=== PATIENT | male | born 1965 | race Two or more races ===

== ENCOUNTER 2017-09-25 16:18 | Observation (INO) | payer BC ==
--- NOTE | 2017-09-25 17:34 | RAD ---
INDICATION: Chest pain. COMPARISON: Comparison is made with a prior chest x-ray study from May 11, 2016. TECHNIQUE: A portable view of the chest was obtained. FINDINGS: Cardiac and mediastinal contours appear to be within normal limits. The lungs are clear. No pleural effusion is seen. IMPRESSION: NO EVIDENCE FOR ACUTE DISEASE.
[2017-09-25 17:42] LABS: EGFR Non-African American 84.9 (>60)
[2017-09-25 17:44] LABS: ABS Basophils 0 10^3/ul (0-0.2); ABS Eosinophils 0.1 10^3/ul (0-0.6); ABS Lymphocytes 0.9 10^3/ul (1.0-4.8); ABS Monocytes 0.5 10^3/ul (0-0.8); ABS Neutrophils 5.8 10^3/ul (1.5-7.7); ABS Nucleated RBC 0 10^3/ul; Eosinophil % 1.2 % (0-6); Hematocrit 43 % (42-52); Hemoglobin 14.3 g/dl (14.0-18.0); Lymphocyte % 12.1 % (25-47); Mean Corpuscular HGB Conc 34 g/dl (31-36); Mean Corpuscular Hemoglobin 29 pg (27-31); Mean Corpuscular Volume 88 fL (80-94); Mean Platelet Volume 9.2 um3 (7.4-10.4); Nucleated Red Blood Cells % 0; Platelet Count 233 10^3/ul (150-450); Red Blood Count 4.88 10^6/ul (4.0-5.4); Red Cell Distribution Width 14 % (10.5-15); White Blood Count 7.2 10^3/ul (3.5-10.8)
[2017-09-25] MEDS ORDERED: Morphine INJ* 2 MG/ML 1 ML CARPUJECT IV PRN (18:53)
[2017-09-25] MEDS ORDERED: Nitroglycerin TAB 0.4 MG* 0.4 MG TAB SL ONE (18:53)
[2017-09-25] MEDS ORDERED: Acetaminophen TAB* 325 MG PO PRN (18:54)
--- NOTE | 2017-09-25 18:57 | ED ---
Ml Vega Edward, scribed for Lio Macedo MD on 09/25/17 at 1626 . HPI Chest Pain - HPI Summary HPI Summary: 52 y/o male BIBA c/o 1x episode of L-sided CP today at around 15:00. The pt was driving when it started. Pt states his chest feels "full" currently; pain rated 3/10 currently. The pain was in the L upper chest. Associated sx: SOB, shoulder pain, diaphoresis, hands cold, nausea. Took an ASA and called 911, sx mostly resolved when EMS arrived. Given NTG, which alleviated sx. Pt has had intermittent stabbing CP for the past 4 months, which resolves spontaneously or with ASA. PMHx HTN and sleep apnea (CPAP machine). Pt has a stress test scheduled for later this week. Mother recently of a CO at 73. - History of Current Complaint Time Seen by Provider: 09/25/17 16:25 Hx Obtained From: Patient Onset/Duration: Started Hours Ago, Resolved Character: Other: - "chest feels full" Aggravating Factor(s): Nothing Alleviating Factor(s): Other: - ASA and NTG Associated Signs and Symptoms: Positive: Chest Pain, Shortness of Breath, Diaphoresis, Nausea, Other: - shoulder pain, hands cold - Allergy/Home Medications Allergies/Adverse Reactions: Allergies Allergy/AdvReac Type Severity Reaction Status Date / Time lisinopril Allergy Coughing Verified 09/25/17 16:58 SEASONAL ENVIRONMENTAL Allergy RUNNY Uncoded 09/25/17 16:37 ALLERGIES NOSE, WATERY EYES, CONGESTION Home Medications: Home Medications Ascorbic Acid TAB* [Vitamin C TAB*] 500 mg PO DAILY 09/25/17 [History Confirmed 09/25/17] PMH/Surg Hx/FS Hx/Imm Hx Previously Healthy: No Cardiovascular History: Reports: Hx Hypertension - CONTROL WITH MEDS Respiratory History: Reports: Hx Sleep Apnea Sensory History: Denies: Hx Contacts or Glasses, Hx Hearing Aid Opthamlomology History: Denies: Hx Contacts or Glasses - Surgical History Surgery Procedure, Year, and Place: 2002 REMOVAL OF RIGHT FLANK MASS, [facility] Hx Anesthesia Reactions: No - Family History Known Family History: Positive: Diabetes Negative: Cardiac Disease, Hypertension - Social History Alcohol Use: Occasionally Hx Substance Use: No Substance Use Type: Reports: None Hx Tobacco Use: No Smoking Status (MU): Never Smoked Tobacco Review of Systems Positive: Skin Diaphoresis, Other - hands cold Eyes: Negative ENT: Negative Positive: Chest Pain Positive: Shortness Of Breath Positive: Nausea Genitourinary: Negative Positive: Arthralgia - shoulder pain Skin: Negative Neurological: Negative Psychological: Normal All Other Systems Reviewed And Are Negative: Yes Physical Exam - Summary Physical Exam Summary: Appearance: The patient is morbidly obese in no acute distress and in no acute pain. Skin: The skin is warm and dry and skin color reflects adequate perfusion. HEENT: The head is normocephalic and atraumatic. The pupils are equal and reactive. The conjunctivae are clear and without drainage. Nares are patent and without drainage. Mouth reveals moist mucous membranes and the throat is without erythema and exudate. The external ears are intact. The ear canals are patent and without drainage. The tympanic membranes are intact. Neck: the neck is supple with full range of motion and non-tender. There are no carotid bruits. There is no neck vein distension. Respiratory: Chest is non-tender. Lungs are clear to auscultation and breath sounds are symmetrical and equal. Cardiovascular: Heart is regular rate and rhythm. There is no murmur or rub auscultated. There is no peripheral edema and pulses are symmetrical and equal. Abdomen: The abdomen is soft and non-tender. There are normal bowel sounds heard in all four quadrants and there is no organomegaly palpated. Musculoskeletal: There is no back tenderness noted. Extremities are non-tender with full range of motion. There is good capillary refill. There is no peripheral edema or calf tenderness elicited. Neurological: Patient is alert and oriented to person, place and time. The patient has symmetrical motor strength in all four extremities. Cranial nerves are grossly intact. Deep tendon reflexes are symmetrical and equal in all four extremities. Psychiatric: The patient has an appropriate affect and does not exhibit any anxiety or depression. Triage Information Reviewed: Yes Vital Signs On Initial Exam: Initial Vitals Temp Pulse Resp BP Pulse Ox 99.0 F 93 20 160/80 97 09/25/17 16:25 09/25/17 16:25 09/25/17 16:25 09/25/17 16:25 09/25/17 16:25 Vital Signs Reviewed: Yes Diagnostics - Vital Signs Vital Signs Temp Pulse Resp BP Pulse Ox 09/25/17 18:30 80 19 124/76 94 09/25/17 18:00 82 20 137/75 95 09/25/17 17:30 85 24 145/76 94 09/25/17 17:00 87 19 141/79 95 09/25/17 16:58 95 09/25/17 16:30 94 18 158/80 96 09/25/17 16:29 93 19 96 09/25/17 16:27 160/80 09/25/17 16:25 99.0 F 93 20 160/80 97 - Laboratory Lab Results: Lab Results 09/25/17 09/25/17 09/25/17 Range/Units 17:13 17:13 17:13 WBC 7.2 (3.5-10.8) 10^3/ul RBC 4.88 (4.0-5.4) 10^6/ul Hgb 14.3 (14.0-18.0) g/dl Hct 43 (42-52) % MCV 88 (80-94) fL MCH 29 (27-31) pg MCHC 34 (31-36) g/dl RDW 14 (10.5-15) % Plt Count 233 (150-450) 10^3/ul MPV 9.2 (7.4-10.4) um3 Neut % (Auto) 79.8 (38-83) % Lymph % (Auto) 12.1 L (25-47) % Desha % (Auto) 6.5 (0-7) % Eos % (Auto) 1.2 (0-6) % Baso % (Auto) 0.4 (0-2) % Absolute Neuts (auto) 5.8 (1.5-7.7) 10^3/ul Absolute Lymphs (auto) 0.9 L (1.0-4.8) 10^3/ul Absolute Monos (auto) 0.5 (0-0.8) 10^3/ul Absolute Eos (auto) 0.1 (0-0.6) 10^3/ul Absolute Basos (auto) 0 (0-0.2) 10^3/ul Absolute Nucleated RBC 0 10^3/ul Nucleated RBC % 0 Sodium 132 L (139-145) mmol/L Potassium TNP Chloride 100 L (101-111) mmol/L Carbon Dioxide 25 (22-32) mmol/L Anion Gap 7 (2-11) mmol/L BUN 18 (6-24) mg/dL Creatinine 0.94 (0.67-1.17) mg/dL Est GFR ( Amer) 109.2 (>60) Est GFR (Non-Af Amer) 84.9 (>60) BUN/Creatinine Ratio 19.1 (8-20) Glucose 117 H (70-100) mg/dL Lactic Acid 1.0 (0.5-2.0) mmol/L Calcium 9.7 (8.6-10.3) mg/dL Total Bilirubin 0.60 (0.2-1.0) mg/dL AST TNP ALT 50 (7-52) U/L Alkaline Phosphatase 62 (34-104) U/L Troponin I 0.02 (<0.04) ng/mL Total Protein 8.7 (6.4-8.9) g/dL Albumin 4.9 (3.2-5.2) g/dL Globulin 3.8 (2-4) g/dL Albumin/Globulin Ratio 1.3 (1-3) 04/16/18 Range/Units 18:13 WBC (3.5-10.8) 10^3/ul RBC (4.0-5.4) 10^6/ul Hgb (14.0-18.0) g/dl Hct (42-52) % MCV (80-94) fL MCH (27-31) pg MCHC (31-36) g/dl RDW (10.5-15) % Plt Count (150-450) 10^3/ul MPV (7.4-10.4) um3 Neut % (Auto) (38-83) % Lymph % (Auto) (25-47) % Desha % (Auto) (0-7) % Eos % (Auto) (0-6) % Baso % (Auto) (0-2) % Absolute Neuts (auto) (1.5-7.7) 10^3/ul Absolute Lymphs (auto) (1.0-4.8) 10^3/ul Absolute Monos (auto) (0-0.8) 10^3/ul Absolute Eos (auto) (0-0.6) 10^3/ul Absolute Basos (auto) (0-0.2) 10^3/ul Absolute Nucleated RBC 10^3/ul Nucleated RBC % Sodium (139-145) mmol/L Potassium 4.0 Chloride (101-111) mmol/L Carbon Dioxide (22-32) mmol/L Anion Gap (2-11) mmol/L BUN (6-24) mg/dL Creatinine (0.67-1.17) mg/dL Est GFR ( Amer) (>60) Est GFR (Non-Af Amer) (>60) BUN/Creatinine Ratio (8-20) Glucose (70-100) mg/dL Lactic Acid (0.5-2.0) mmol/L Calcium (8.6-10.3) mg/dL Total Bilirubin (0.2-1.0) mg/dL AST 38 ALT (7-52) U/L Alkaline Phosphatase (34-104) U/L Troponin I (<0.04) ng/mL Total Protein (6.4-8.9) g/dL Albumin (3.2-5.2) g/dL Globulin (2-4) g/dL Albumin/Globulin Ratio (1-3) Result Diagrams: 09/25/17 17:13 09/25/17 18:13 Lab Statement: Any lab studies that have been ordered have been reviewed, and results considered in the medical decision making process. - Radiology CXR Xray Interpretation: No Acute Changes - No evidence for acute disease Radiology Interpretation Completed By: Radiologist - EKG 1 EKG Interpretation: NSR @ 85 BPM. Nonspecific inferior changes Chest Pain Course/Dx - Course Course Of Treatment: Mr. Duckworth presented with an episode of chest discomfort. He has been having them occasionally for a couple weeks and is scheduled for an outpatient stress test this Monday. Today's episode was accompanied by nausea and diaphoresis which was new. His initial W/U is negative, however, this sounds like unstable angina and I have asked the hospitalist service to evaluate him. - Diagnoses Provider Diagnoses: Unstable angina - Provider Notifications Discussed Care Of Patient With: Charis Nguyen Time Discussed With Above Provider: 18:12 Instructed by Provider To: Admit As Inpatient Discharge - Sign-Out/Discharge Documenting (check all that apply): Discharge - Discharge Plan Condition: Stable Disposition: ADMITTED TO [facility] Referrals: Marcos Doan MD [Primary Care Provider] - - Billing Disposition and Condition Condition: STABLE [place] [place] The documentation as recorded by the Ml bernstein Edward accurately reflects the service I personally performed and the decisions made by me, Lio Macedo MD.
[2017-09-25] MEDS: Heparin VIAL(*) 5000 UNITS/ML VIAL (FIVE THOUSAND) SUBCUT SCH (22:23)
--- NOTE | 2017-09-25 22:57 | HP ---
CC: Dr. Doan* ADMISSION HISTORY AND PHYSICAL: DATE OF ADMISSION: 09/25/17 ATTENDING PHYSICIAN: Charis Nguyen MD * (DICTATED BY JARETH KHAN) PRIMARY CARE PROVIDER: Marcos Doan MD CHIEF COMPLAINT: Chest pain. HISTORY OF PRESENT ILLNESS: Mr. Duckworth is a pleasant 52-year-old gentleman with past medical history significant for obesity and hypertension, who was brought to the emergency room this afternoon via ambulance after he experienced a sudden onset of a substernal chest pain. The patient notes that he was driving back home this afternoon when he started to experience generalized chest pain that got more localized to the middle and eventually shifted to the left side, radiating to his shoulder and jaw. He reports feeling some dizziness and diaphoresis but denied any loss of consciousness, double vision, nausea or vomiting. He had experienced similar chest pain episodes most recently in March 2016 for which he had an EKG done that revealed no significant changes. The patient told me that he was seen by Dr. Doan about 3 weeks ago and he is scheduled for a cardiac stress test this Monday for similar on and off chest discomfort. The patient notes that his chest pain lasted approximately 30 minutes and was relieved when he was given a nitroglycerin by the EMS staff. Upon arriving to [facility] Emergency Room , the patient was pain free and he denied any recurrent chest pain since then. During his ED visit, patient had cardiac workup that revealed normal troponin and EKG that showed no changes compared to previous one in March 2016. Given his obesity, history of hypertension and the frequency of his chest discomfort, we were asked to see the patient to consider observation admit to telemetry in anticipation for troponin series draw as well as a stress nuclear cardiac test in the a.m. to rule out acute coronary syndrome. PAST MEDICAL HISTORY: Remarkable for hypertension for which he has been on Norvasc for a period of time. He denies any history of lung, liver, heart or kidney disease. PAST SURGICAL HISTORY: Significant for lipoma excision from his right flank in the remote past. CURRENT MEDICATIONS: His medications at home include: 1. Norvasc 10 mg p.o. daily. 2. Vitamin C tablet 500 mg p.o. daily. ALLERGIES: He is allergic to LISINOPRIL and also reports SEASONAL ENVIRONMENTAL allergies. FAMILY HISTORY: The patient has a family history of coronary artery disease in his mom who at age 73 back in last June. He also has a brother with some stomach problem likely related to GERD. He denies any history of cancer in his family. SOCIAL HISTORY: The patient is a nonsmoker who denies alcohol intake or illicit drug use. 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 He is and has 2 kids aged 21 and 14. He is a full code status and healthcare proxy is his . REVIEW OF SYSTEMS: See HPI. Otherwise, a 14-point review of systems were reviewed and essentially all negative. PHYSICAL EXAMINATION GENERAL: He is a pleasant, healthy-appearing, obese middle-aged gentleman, appears comfortable and in no acute distress or discomfort at the time of admission. VITAL SIGNS: Most recent set of vitals was temperature of 99 degrees, pulse of 80, blood pressure of 124/76, respirations of 19 and O2 sat of 94% on room air. HEENT: Head is normocephalic, atraumatic. Sclerae anicteric. PERRLA. EOMs intact. Oropharynx is pink, moist with no exudate. NECK: Supple. Trachea midline. No cervical adenopathy, thyromegaly or JVD. LUNGS: Clear to auscultation bilaterally. HEART: Regular rate and rhythm. Normal S1 and S2 without rubs, murmurs or gallops. BACK: Normal curvature, no CVA tenderness. BREAST EXAM: Deferred at this time. ABDOMEN: Soft, obese, nontender and nondistended. No hernias, masses or hepatosplenomegaly. Bowel sounds were normoactive in all quadrants. EXTREMITIES: Without cyanosis, clubbing, or edema. RECTAL: Deferred at this time. NEUROLOGIC: Grossly intact. LABORATORY WORKUP: The patient had a CBC done that revealed white count of 7000, hemoglobin 14.3, hematocrit of 43 and platelets of 233. His chemistry panel with sodium of 132, potassium of 4.0, chloride of 100, CO2 of 25, BUN of 18 and creatinine of 0.9. His glucose was 117, lactic acid 1.0. LFTs within normal limits and troponin of 0.02. ACCESSORY DIAGNOSTIC DATA: Chest x-ray was done revealing no acute cardiopulmonary changes. EKG was reviewed and compared to last one taken back in March 2016 and there is no acute changes. IMPRESSION: A 52-year-old obese gentleman with history of hypertension who presents to the emergency room with acute onset of substernal chest pain that was relieved with taking sublingual nitroglycerin and he is being admitted to telemetry unit for observation and to rule out acute coronary syndrome. PLAN/RECOMMENDATIONS: 1. Chest pain rule out acute coronary syndrome: Aspirin was given by the emergency room and we will maintain him on a full dose aspirin on a daily basis. He will be admitted to telemetry unit for close observation. We will obtain a trend troponin once again at 10 o'clock tonight and tomorrow at 6 o' clock to see if there is any trending. We will repeat his EKG tomorrow morning prior to an exercise nuclear stress test in the morning. We will also provide supplemental oxygen to use as needed as well as supportive care and will provide morphine and nitroglycerin to use as needed for chest pain. 2. Hypertension: We will maintain him on his Norvasc for now. 3. Morbid obesity: Supportive care and we will check a lipid panel tomorrow a.m. in his blood work. 4. DVT prophylaxis: We will cover him with subcu heparin. 5. Code status: The patient is a full code. JARETH KHAN [id number]/[facility] #: [id number]
[2017-09-26] MEDS: Heparin VIAL(*) 5000 UNITS/ML VIAL (FIVE THOUSAND) SUBCUT SCH (06:03)
[2017-09-26] MEDS ORDERED: hydrALAZINE IV* 20 MG/ML VIAL IV SLOW PU PRN (08:16)
[2017-09-26] MEDS ORDERED: Ascorbic Acid TAB* 500 MG PO SCH (09:00)
[2017-09-26] MEDS ORDERED: Aspirin TAB* 325 MG PO SCH (09:00)
[2017-09-26] MEDS ORDERED: amLODIPine TAB* 5 MG PO SCH (09:00)
--- NOTE | 2017-09-26 12:56 | RAD ---
Edited for charges. INDICATION: Chest pain, shortness of breath, hypertension, obesity, family history of heart disease. COMPARISON: September 23, 2009 TECHNIQUE: 10.300 mCi of Tc-99m Myoview were administered IV. SPECT images of the heart were obtained. Later on the same day. Under the direction of Dr. Morgan, an exercise stress test was performed. The patient achieved a peak heart rate of 153 bpm, 90 % of the age- predicted maximum. Subsequently, the patient was given an IV injection of 26.310 mCi Tc- 99m Myoview. SPECT images of the heart were obtained and a gated wall motion study was performed. FINDINGS: Gated wall motion images were obtained at stress and demonstrate wall motion to be within normal limits. The calculated left ventricular ejection fraction is 60 % at stress. Estimated LEFT ventricular end diastolic volume is 110 mL. TID 0.9. Based on review of the attenuation corrected and non corrected images the distribution of radiopharmaceutical within the myocardium on the stress and rest images is within normal limits. No fixed or reversible regions of hypoperfusion evident. IMPRESSION: 1. No evidence for stress induced myocardial ischemia or presence of an infarct. 2. Normal left ventricular wall motion and ejection fraction. ASSESSMENT: Low risk based on nuclear portion. Based on imaging criteria from ACC/AHA 2002 Guideline Update for the Management of Patients With Chronic Stable Angina Table 23. Noninvasive Risk Stratification. MTDD
[2017-09-26 14:44] VITALS: BP 147/82
--- NOTE | 2017-09-26 22:36 | DS ---
CC: Dr. Doan.* DISCHARGE SUMMARY: DATE OF ADMISSION: 09/25/17 DATE OF DISCHARGE: 09/26/17. PRIMARY CARE PROVIDER: Dr. Doan. DISCHARGE DIAGNOSIS: Chest pain likely of noncardiac origin with negative cardiac stress test documented on the day of discharge. SECONDARY DIAGNOSES: 1. Dyslipidemia. 2. Obesity. 3. Hypertension. MEDICATIONS AT DISCHARGE: Include: 1. Norvasc 10 mg a day. 2. Vitamin C tablet 500 mg daily. LABORATORY DATA DURING THE HOSPITAL STAY: Included troponins which ranged from 0.02 to 0.01. Patient's cholesterol profile shows triglycerides of 100, cholesterol total of 172, LDL of 110 and HDL of 41.6. Nuclear medicine cardiac stress test documented on 09/26/17, impression: "No evidence of stress-induced myocardial ischemia or of an infarct. Normal left ventricular wall motion and ejection fraction." The patient's EF was noted to be 60% at stress and was low risk. HOSPITALIZATION COURSE: Mr. Duckworth is a 52-year-old obese male with history of hypertension, who presented complaining of chest pain. Please see details of presentation in history and physical dictated on admission. Shortly , patient had no recurrence of chest pain during this hospital stay. His troponins continued to be negative. His treadmill cardiac stress test obtained on 09/26/17 was low risk for myocardial ischemia. The patient is going to be discharged home. Recommendations to follow up with low cholesterol diet. Also he is recommended to follow up with Dr. Doan in 4 to 7 days. PHYSICAL EXAMINATION: Physical exam at the time of discharge is unchanged from admission. [id number]/[facility] #: [id number] ANGEL
== END 2017-09-26 14:30 | disposition home or self-care (01) ==
LOC: ED 16:18 → MEDTELE 18:12
PROVIDERS: ADMIT Internal Medicine; ATTEND Internal Medicine
DX: R07.9 Chest pain, unspecified (principal); E78.5 Hyperlipidemia, unspecified; E66.01 Morbid (severe) obesity due to excess calories; I10 Essential (primary) hypertension; R06.02 Shortness of breath; R11.0 Nausea; M25.519 Pain in unspecified shoulder; G47.30 Sleep apnea, unspecified
CPT/HCPCS: 36415; 71045; 78452; 80053; 80061; 83605; 84484; 85025; 93005; 93017; 94660; 99284; A9270-GY; A9502; G0378; J1644

== ENCOUNTER 2018-02-21 13:42 | Observation (INO) | payer BC ==
--- NOTE | 2018-02-21 14:41 | RAD ---
INDICATION: Chest pain. COMPARISON: Comparison is made with a prior chest x-ray study from May 11, 2016. TECHNIQUE: Dual-energy PA views of the chest were obtained. FINDINGS: The heart is within normal limits in size. Mediastinal and hilar contours appear within normal limits. The lungs are clear. No pleural effusion is present. IMPRESSION: NO EVIDENCE FOR ACTIVE CARDIOPULMONARY DISEASE.
[2018-02-21 15:08] LABS: ABS Basophils 0 10^3/ul (0-0.2); ABS Eosinophils 0.1 10^3/ul (0-0.6); ABS Lymphocytes 1.2 10^3/ul (1.0-4.8); ABS Monocytes 0.5 10^3/ul (0-0.8); ABS Neutrophils 4.1 10^3/ul (1.5-7.7); ABS Nucleated RBC 0 10^3/ul; Eosinophil % 2.4 % (0-6); Hematocrit 44 % (42-52); Hemoglobin 14.5 g/dl (14.0-18.0); Lymphocyte % 19.5 % (25-47); Mean Corpuscular HGB Conc 33 g/dl (31-36); Mean Corpuscular Hemoglobin 30 pg (27-31); Mean Corpuscular Volume 90 fL (80-94); Mean Platelet Volume 8.8 um3 (7.4-10.4); Nucleated Red Blood Cells % 0.2; Platelet Count 218 10^3/ul (150-450); Red Blood Count 4.86 10^6/ul (4.00-5.40); Red Cell Distribution Width 14 % (10.5-15)
[2018-02-21 15:43] LABS: EGFR Non-African American 63.5 (>60)
[2018-02-21] MEDS ORDERED: Nitroglycerin TAB 0.4 MG* 0.4 MG TAB SL ONE (16:27)
[2018-02-21] MEDS ORDERED: Aspirin 81 mg CHEW TAB* 81 MG TAB.CHEW PO ONE (16:27)
--- NOTE | 2018-02-21 16:32 | ED ---
HPI Chest Pain - HPI Summary HPI Summary: Pt is a 52 year old male presenting to the ED with a chief complaint of chest pain onset 4 hours ago while he was driving. The chest pain lasted about 3 hours , is mostly gone, but still has mild pressure. The pain did not go down to his back, but it went down his R arm. The pt denies pain in his legs, any trouble breathing, any drinking, smoking, or diabetes, and has not taken any aspirin or NTG today. The pt reports that this has happened before around 4-5 months ago and he was admitted to [facility] for it, but they didnt find anything. The pt also reports a hx of HTN and a FHx of heart disease, his mom having an WI specifically. - History of Current Complaint Chief Complaint: EDChestPainROMI Time Seen by Provider: 02/21/18 16:27 Hx Obtained From: Patient Onset/Duration: Started Hours Ago, Resolved Timing: Constant Initial Severity: Mild Current Severity: Mild Pain Intensity: 3 Pain Scale Used: 0-10 Numeric Chest Pain Location: Right Anterior Chest Pain Radiates: Yes Chest Pain Radiates To:: Arm - Right Aggravating Factor(s): Nothing Alleviating Factor(s): Rest - Allergy/Home Medications Allergies/Adverse Reactions: Allergies Allergy/AdvReac Type Severity Reaction Status Date / Time lisinopril Allergy Coughing Verified 09/25/17 16:58 SEASONAL ENVIRONMENTAL Allergy RUNNY Uncoded 09/25/17 16:37 ALLERGIES NOSE, WATERY EYES, CONGESTION Home Medications: Home Medications Spironolactone/HCTZ 25-25 MG* [Aldactazide 25-25*] 1 tab PO DAILY 02/21/18 [ History Confirmed 02/21/18] PMH/Surg Hx/FS Hx/Imm Hx Previously Healthy: No Endocrine/Hematology History: Denies: Hx Diabetes Cardiovascular History: Reports: Hx Angina, Hx Hypertension - CONTROL WITH MEDS Denies: Hx Coronary Artery Disease, Hx Myocardial Infarction, Hx Valvular Heart Disease Respiratory History: Reports: Hx Sleep Apnea Denies: Hx Asthma, Hx Chronic Obstructive Pulmonary Disease (COPD) Sensory History: Denies: Hx Contacts or Glasses, Hx Hearing Aid Opthamlomology History: Denies: Hx Contacts or Glasses - Surgical History Surgery Procedure, Year, and Place: 2002 REMOVAL OF RIGHT FLANK MASS, [facility] Hx Anesthesia Reactions: No Infectious Disease History: No Infectious Disease History: Denies: Traveled Outside the [place] in Last 30 Days - Family History Known Family History: Positive: Cardiac Disease - mother had WI, Diabetes Negative: Hypertension - Social History Alcohol Use: None Hx Substance Use: No Substance Use Type: Reports: None Hx Tobacco Use: No Smoking Status (MU): Never Smoked Tobacco Review of Systems Negative: Fever, Chills Negative: Erythema Negative: Sore Throat Positive: Chest Pain Negative: Shortness Of Breath, Cough Negative: Abdominal Pain, Vomiting, Nausea Negative: dysuria, hematuria Negative: Myalgia, Edema Negative: Rash Neurological: Negative - dizziness All Other Systems Reviewed And Are Negative: Yes Physical Exam - Summary Physical Exam Summary: Constitutional: Well-developed, Well-nourished, Alert. (-) Distressed Skin: Warm, Dry HENT: Normocephalic; Atraumatic Eyes: Conjunctiva normal Neck: Musculoskeletal ROM normal neck. (-) JVD, (-) Stridor, (-) Tracheal deviation Cardio: Rhythm regular, rate normal, Heart sounds normal; Intact distal pulses; The pedal pulses are 2+ and symmetric. Radial pulses are 2+ and symmetric. (-) Murmur Pulmonary/Chest wall: Effort normal. (-) Respiratory distress, (-) Wheezes, (-) Rales Abd: Soft, (-) epigastric tenderness, (-) Distension, (-) Guarding, (-) Rebound Musculoskeletal: (-) Edema Lymph: (-) Cervical adenopathy Neuro: Alert, Oriented x3 Psych: Mood and affect Normal Triage Information Reviewed: Yes Vital Signs On Initial Exam: Initial Vitals Temp Pulse Resp BP Pulse Ox 98.1 F 80 14 177/96 99 02/21/18 13:46 02/21/18 13:46 02/21/18 13:46 02/21/18 13:46 02/21/18 13:46 Vital Signs Reviewed: Yes Diagnostics - Vital Signs Vital Signs Temp Pulse Resp BP Pulse Ox 02/21/18 15:20 98.6 F 73 16 142/85 98 02/21/18 13:46 98.1 F 80 14 177/96 99 - Laboratory Lab Results: Lab Results 02/21/18 02/21/18 02/21/18 Range/Units 14:45 14:45 14:45 WBC 6.0 (3.5-10.8) 10^3/ul RBC 4.86 (4.00-5.40) 10^6/ul Hgb 14.5 (14.0-18.0) g/dl Hct 44 (42-52) % MCV 90 (80-94) fL MCH 30 (27-31) pg MCHC 33 (31-36) g/dl RDW 14 (10.5-15) % Plt Count 218 (150-450) 10^3/ul MPV 8.8 (7.4-10.4) um3 Neut % (Auto) 69.2 (38-83) % Lymph % (Auto) 19.5 L (25-47) % Teton % (Auto) 8.6 H (0-7) % Eos % (Auto) 2.4 (0-6) % Baso % (Auto) 0.3 (0-2) % Absolute Neuts (auto) 4.1 (1.5-7.7) 10^3/ul Absolute Lymphs (auto) 1.2 (1.0-4.8) 10^3/ul Absolute Monos (auto) 0.5 (0-0.8) 10^3/ul Absolute Eos (auto) 0.1 (0-0.6) 10^3/ul Absolute Basos (auto) 0 (0-0.2) 10^3/ul Absolute Nucleated RBC 0 10^3/ul Nucleated RBC % 0.2 Sodium 137 (135-145) mmol/L Potassium 3.7 (3.5-5.0) mmol/L Chloride 100 L (101-111) mmol/L Carbon Dioxide 25 (22-32) mmol/L Anion Gap 12 H (2-11) mmol/L BUN 19 (6-24) mg/dL Creatinine 1.21 H (0.67-1.17) mg/dL Est GFR ( Amer) 76.8 (>60) Est GFR (Non-Af Amer) 63.5 (>60) BUN/Creatinine Ratio 15.7 (8-20) Glucose 95 (70-100) mg/dL Lactic Acid 1.2 (0.5-2.0) mmol/L Calcium 9.5 (8.6-10.3) mg/dL Total Bilirubin 0.80 (0.2-1.0) mg/dL AST 49 H (13-39) U/L ALT 58 H (7-52) U/L Alkaline Phosphatase 53 (34-104) U/L Troponin I 0.00 (<0.04) ng/mL B-Natriuretic Peptide ( - 100) pg/mL Total Protein 8.4 (6.4-8.9) g/dL Albumin 4.5 (3.2-5.2) g/dL Globulin 3.9 (2-4) g/dL Albumin/Globulin Ratio 1.2 (1-3) 02/21/18 Range/Units 14:45 WBC (3.5-10.8) 10^3/ul RBC (4.00-5.40) 10^6/ul Hgb (14.0-18.0) g/dl Hct (42-52) % MCV (80-94) fL MCH (27-31) pg MCHC (31-36) g/dl RDW (10.5-15) % Plt Count (150-450) 10^3/ul MPV (7.4-10.4) um3 Neut % (Auto) (38-83) % Lymph % (Auto) (25-47) % Teton % (Auto) (0-7) % Eos % (Auto) (0-6) % Baso % (Auto) (0-2) % Absolute Neuts (auto) (1.5-7.7) 10^3/ul Absolute Lymphs (auto) (1.0-4.8) 10^3/ul Absolute Monos (auto) (0-0.8) 10^3/ul Absolute Eos (auto) (0-0.6) 10^3/ul Absolute Basos (auto) (0-0.2) 10^3/ul Absolute Nucleated RBC 10^3/ul Nucleated RBC % Sodium (135-145) mmol/L Potassium (3.5-5.0) mmol/L Chloride (101-111) mmol/L Carbon Dioxide (22-32) mmol/L Anion Gap (2-11) mmol/L BUN (6-24) mg/dL Creatinine (0.67-1.17) mg/dL Est GFR ( Amer) (>60) Est GFR (Non-Af Amer) (>60) BUN/Creatinine Ratio (8-20) Glucose (70-100) mg/dL Lactic Acid (0.5-2.0) mmol/L Calcium (8.6-10.3) mg/dL Total Bilirubin (0.2-1.0) mg/dL AST (13-39) U/L ALT (7-52) U/L Alkaline Phosphatase (34-104) U/L Troponin I (<0.04) ng/mL B-Natriuretic Peptide 11 ( - 100) pg/mL Total Protein (6.4-8.9) g/dL Albumin (3.2-5.2) g/dL Globulin (2-4) g/dL Albumin/Globulin Ratio (1-3) Result Diagrams: 02/21/18 14:45 02/21/18 14:45 Lab Statement: Any lab studies that have been ordered have been reviewed, and results considered in the medical decision making process. - Radiology CXR Xray Interpretation: No Acute Changes - Chest X-Ray: No evidence for active cardiopulmonary disease. Radiology Interpretation Completed By: Radiologist - ED physician has reviewed this report. - EKG No standard instances Cardiac Rate: NL - 68bpm ST Segment: Normal Ectopy: None Chest Pain Course/Dx - Course Course Of Treatment: Pt is a 52 year old male presenting with a chief complaint of chest pain. The pt has a hx of this type of chest pain, and was admitted to [facility] previously and they did not find anything. Dr. Pendleton will be the accepting physician. - Diagnoses Provider Diagnoses: Chest pain, unspecified Discharge - Sign-Out/Discharge Documenting (check all that apply): Patient Departure - admission - Discharge Plan Condition: Stable Disposition: ADMITTED TO [facility] - Attestation Statements Document Initiated by Scribe: Yes Documenting Scribe: Sujatha Fong Provider For Whom Griselibe is Documenting (Include Credential): Guzman Hoang MD. Scribe Attestation: Sujatha Vega, scribed for Guzman Hoang MD. on 02/21/18 at 1746.
[2018-02-21] MEDS ORDERED: Ondansetron INJ* 2 MG/ML VIAL IV PRN (17:05)
[2018-02-21] MEDS ORDERED: Acetaminophen TAB* 325 MG PO PRN (17:05)
[2018-02-21] MEDS ORDERED: Nitroglycerin TAB 0.4 MG* 0.4 MG TAB SL PRN (17:05)
--- NOTE | 2018-02-21 21:46 | HP ---
CC: Dr. Marcos Doan * ADMISSION HISTORY AND PHYSICAL: DATE OF ADMISSION: 02/21/18 PRIMARY CARE PROVIDER: Dr. Marcos Doan. MY ATTENDING WHILE IN THE HOSPITAL: Dr. Charis Nguyen.* (DICTATED BY JARETH RICARDO) CHIEF COMPLAINT: Epigastric pain x3 hours. HISTORY OF PRESENT ILLNESS: Mr. Duckworth is a 52-year-old male with a past medical history significant for hypertension, obstructive sleep apnea, and GERD , who presents to the emergency department with 3 hours of constant chest pain, not provoked by activity, that came upon while he was driving and persisted for 3 hours with slight associated shortness of breath and 1 episode of radiation to the right side of his face with associated numbness of the right side of his face. The patient has been having for 2 weeks intermittent sharp pain on the left side of his chest, which is worse when he lays down, but usually only last several seconds. The patient was previously admitted to this institution in September of 2017 for pain in the similar area, but without radiation that lasted for a shorter period of time. The patient had a nuclear medicine stress test at that time, which showed no fixed or reversible infarct, normal ejection fraction and was read as low risk. The patient was discharged and has been in good health since then. The patient has had no recent illnesses, no recent changes to his medications. The patient wears a CPAP mask at home. The patient denies orthopnea, nocturia, paroxysmal nocturnal dyspnea, swelling in his legs, dyspnea on exertion or other symptoms of CHF. The patient has not been exercising to an extreme degree recently. The patient walks on treadmill every day. The patient did not notice any recent weight loss or weight gain. The patient was also previously admitted to this institution with hypertensive urgency with associated chest pain in 2009. Due to concern for acute coronary syndrome, we were asked to evaluate for admission. PAST MEDICAL HISTORY: Hypertension, history of hypertensive urgency, GERD, chest pain, obstructive sleep apnea. PAST SURGICAL HISTORY: Lipoma excision. MEDICATIONS: 1. Omeprazole 10 mg p.o. daily. 2. Amlodipine 10 mg p.o. daily. 3. Spironolactone 25 mg p.o. daily. ALLERGIES: LISINOPRIL and seasonal. FAMILY HISTORY: The patient's mother of coronary artery disease and PR in June of 2017. The patient's father has GERD and fibromyalgia. The patient' s other brother is healthy and no known health issues. The patient's father in a car accident. SOCIAL HISTORY: The patient has never smoked. The patient drinks rare alcohol. The patient has never used illicit drugs. 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 The patient is and has 2 children. The patient's surrogate decision maker will be his , Samuel Moreira. REVIEW OF SYSTEMS: A 14-point review of systems was reviewed and is negative except as above in the HPI. PHYSICAL EXAMINATION GENERAL: The patient is a 52-year-old male, who appears his stated age and sitting comfortably in bed, in no acute distress. VITAL SIGNS: At the time of evaluation, temperature 98.1, pulse rate 80, respiratory rate 14, oxygen saturation 99% on room air, and blood pressure 124/ 80. HEENT: Head: Normocephalic, atraumatic. Sclerae anicteric. No conjunctival injection. Nasal mucosa moist. Oral mucosa moist. No pharyngeal erythema, discharge or exudate. High arching palate. Thick neck. NECK: Supple, nontender. No lymphadenopathy. No carotid bruits auscultated. No JVD visible. RESPIRATORY: Clear to auscultation bilaterally. No wheezes, rales or rhonchi. Good air exchange bilaterally. CARDIAC: Regular rate and rhythm. No clicks, murmurs, gallops or rubs. Pulse 2+ in bilateral dorsalis pedis, posterior tibial, and radial areas. No bilateral lower extremity edema noted. ABDOMEN: Soft, nontender, nondistended. Bowel sounds present in all 4 quadrants. No hepatosplenomegaly. No abdominal bruits auscultated. No hepatojugular reflux. GENITOURINARY: No suprapubic or CVA tenderness. SKIN: Clean, dry, intact. No rash. NEUROLOGIC: Cranial nerves II through XII grossly intact. No focal deficits. Alert and oriented x3. PSYCHIATRIC: Pleasant and cooperative. DIAGNOSTIC STUDIES/LAB DATA: White blood cell count 6.0, hemoglobin 14.5, hematocrit 44, platelet count 218. Sodium 137, potassium 3.7, chloride 100, carbon dioxide 25, anion gap 12, BUN 19, creatinine 1.21, glucose 95, lactic acid 1.2. Bilirubin 0.8, AST 49, ALT 58, alkaline phosphatase 53. Troponin I 0.00. BNP 11, protein 8.4, albumin 4.5, globulin 3.9. Studies: Chest x-ray read as evidence for acute cardiopulmonary disease. EKG shows normal sinus rhythm at a rate of 68, QTc of 411. No ST segment abnormalities. T-wave flattening in lead III. No other significant abnormalities. In previous exam, the patient had T-wave inversion in lead III. No significant changes. No hypertrophy or enlargement. ASSESSMENT AND PLAN/IMPRESSION: Mr. Duckworth is a 52-year-old male with a past medical history significant for hypertension, obstructive sleep apnea, and previous history of presumed noncardiac chest pain, who presents to the hospital with 3 hours of epigastric chest pain associated with shortness of breath. Due to the patient's risk factors, the patient will be admitted to the hospital for chest pain rule out with serial troponins and telemetry monitoring. 1. Chest pain: The patient's chest pain is substernal tightness with associated shortness of breath and radiation to his neck and face. Given the concerning characteristics for this cardiac chest pain as well as the patient's risk factor, the patient will be admitted to the hospital. The patient had 1 troponin, which was 0.00. The patient will have 2 more serial troponins to rule out myocardial infarction. The patient had a normal nuclear medicine stress test in September of this year. The patient will be monitored on telemetry. The patient will have nitroglycerin available for repeat chest pain. The patient will be continued on his home antihypertensive medications. The patient will have risk stratification with a hemoglobin A1c and a lipid profile. If the patient's troponins are negative and no other alarming symptoms , no tachyarrhythmias or other abnormalities are present on his EKG in the morning, the patient will be discharged to home. The patient received aspirin and will be continued on aspirin 81 mg daily for primary prevention of myocardial infarction. 2. Hypertension: The patient has a history of hypertensive urgency; however, the patient's blood pressure is well controlled right now. The patient will be continued on amlodipine and spironolactone. The patient will have nitroglycerin as needed. The patient checks his blood pressure at home and it is usually around 130/80, which is appropriate for his past medical history. 3. Gastroesophageal reflux disease: The patient will be continued on omeprazole 20 mg p.o. daily, which is possibly due to reflux and evaluation for noncardiac including gastric and esophageal causes of his chest pain should be considered if the patient is not turned out to be having a myocardial infarction. 4. Obstructive sleep apnea: The patient may continue on his home CPAP. He will bring in his machine. 5. DVT prophylaxis: The patient is a moderate risk and will have SCDs. 6. FEN: The patient will have a heart healthy diet without caffeine. The patient requires no fluids at this time. 7. Code status: The patient would like to be a full code. The patient's surrogate decision maker will be his as above. TIME SPENT: Approximately, 60 minutes were spent on the admission of this patient, 30 of which was spent in [id number]-ueaz with the patient obtaining history and physical and discussing treatment plan. This plan was discussed with my attending, Dr. Charis Nguyen, and she is in agreement. JARETH RICARDO [id number]/[facility] #: [id number] ANGEL
[2018-02-22] MEDS ORDERED: Omeprazole CAP* 20 MG PO SCH (06:00)
[2018-02-22 06:07] LABS: ABS Basophils 0 10^3/ul (0-0.2); ABS Eosinophils 0.2 10^3/ul (0-0.6); ABS Lymphocytes 1.7 10^3/ul (1.0-4.8); ABS Monocytes 0.6 10^3/ul (0-0.8); ABS Neutrophils 3.6 10^3/ul (1.5-7.7); ABS Nucleated RBC 0 10^3/ul; Eosinophil % 3.5 % (0-6); Hematocrit 41 % (42-52); Hemoglobin 13.8 g/dl (14.0-18.0); Lymphocyte % 28.4 % (25-47); Mean Corpuscular HGB Conc 33 g/dl (31-36); Mean Corpuscular Hemoglobin 30 pg (27-31); Mean Corpuscular Volume 89 fL (80-94); Mean Platelet Volume 8.8 um3 (7.4-10.4); Nucleated Red Blood Cells % 0.2; Platelet Count 218 10^3/ul (150-450); Red Blood Count 4.63 10^6/ul (4.00-5.40); Red Cell Distribution Width 14 % (10.5-15); White Blood Count 6.1 10^3/ul (3.5-10.8)
[2018-02-22 06:26] LABS: EGFR Non-African American 68.7 (>60)
[2018-02-22] MEDS ORDERED: Ascorbic Acid TAB* 500 MG PO SCH (09:00)
[2018-02-22] MEDS ORDERED: Aspirin EC TAB* 81 MG TAB.EC PO SCH (09:00)
[2018-02-22] MEDS ORDERED: Spironolactone TAB* 25 MG PO SCH (09:00)
[2018-02-22] MEDS ORDERED: amLODIPine TAB* 5 MG PO SCH (09:00)
--- NOTE | 2018-02-22 14:34 | RAD ---
HISTORY: Abnormal LFTS COMPARISONS: September 22, 2009 TECHNIQUE: Multiple transverse and longitudinal ultrasound images were obtained of the right upper quadrant of the abdomen using grayscale and color Doppler imaging. FINDINGS: LIVER: The liver is diffusely echogenic and coarse in echotexture, with decreased acoustic transmission. The liver is otherwise normal in shape, size, and contour. There is normal hepatopedal flow of the portal vein on Doppler imaging. BILIARY TREE: There is no intrahepatic or extrahepatic biliary dilatation. The common duct measures 0.5 cm. GALLBLADDER: The gallbladder is distended. Multiple shadowing echogenic foci consistent with gallstones are noted. There is no gallbladder wall thickening, pericholecystic fluid, or sonographic Kessler sign. PANCREAS: The pancreas is obscured by overlying bowel gas. RIGHT KIDNEY: The right kidney is normal in shape, size, contour, and echogenicity. There is no hydronephrosis or nephrolithiasis. The right kidney measures 11 x 5.6 x 5.1 cm. AORTA AND IVC: The aorta and IVC are unremarkable. FLUID: There are no pleural effusions. There is no free fluid within the hepatorenal recess. OTHER FINDINGS: None. IMPRESSION: 1. FATTY INFILTRATION OF THE LIVER. 2. CHOLELITHIASIS.
[2018-02-22 15:29] VITALS: BP 135/72
--- NOTE | 2018-02-23 09:15 | DS ---
CC: Dr. Marcos Doan * DISCHARGE SUMMARY: DATE OF ADMISSION: 02/21/18 DATE OF DISCHARGE: 02/22/18 PRIMARY CARE PROVIDER: Dr. Marcos Doan MY ATTENDING WHILE IN THE HOSPITAL: Dr. Michael Lal * (DICTATED BY JARETH RICARDO) PRIMARY DISCHARGE DIAGNOSES: 1. Chest pain. 2. Elevated liver enzymes, probable nonalcoholic steatohepatitis. 3. Cholelithiasis without cholecystitis. SECONDARY DISCHARGE DIAGNOSES: 1. Hypertension. 2. Obstructive sleep apnea. 3. Fatty infiltration of the liver. 4. Gastroesophageal reflux disease. STUDIES DONE WHILE IN THE HOSPITAL: Chest x-ray from 02/21/18, read as no evidence for active cardiopulmonary disease. Electrocardiogram from 02/21/18, shows normal sinus rhythm. No ST segment elevation or depression. No T-wave inversions, T-wave flattening in lead III. Normal axis. No blocks or hypertrophy, rate of 68, QTc of 441. Repeat EKG from 02/22/18, shows no significant changes, rate of 49, QTc of 412. Liver ultrasound from 02/22/18, read as fatty infiltration of the liver, cholelithiasis. No gallbladder wall thickening, pericholecystic fluid or sonographic Kessler sign. MEDICATIONS AT DISCHARGE: 1. Amlodipine 10 mg p.o. daily. 2. Ascorbic acid 500 mg p.o. daily. 3. Tylenol 650 mg p.o. q. 6 hours as needed. 4. Aspirin 81 mg p.o. daily. 5. Nitroglycerin 0.4 mg sublingual q.5 minutes as needed for chest pain. 6. Spironolactone 25 mg p.o. daily. 7. Vitamin E 400 units p.o. daily. HOSPITAL COURSE: This is a brief summary of the patient's presentation. For more details, please see history and physical from this author on 02/21/18. In brief, the patient is a 52-year-old male with past medical history significant for the above, who had approximately 3 hours of constant chest pressure while driving on the day of admission, which was substernal, felt to be tightness, moderate intensity with one episode of radiation to the right side of his face associated with numbness on that side of the face. The patient is having 2 weeks of intermittent sharp pain in the left side of his chest, which was radiating down. The patient had a negative nuclear medicine stress test in September 2017, for similar pain without radiation. The patient had no other associated symptoms. The patient, in general, has been in his regular state of health and exercised on a treadmill every day. The patient had negative EKG, which was not ischemic and 3 negative troponins. The patient was admitted to the hospital, had no repeat chest pain throughout his hospitalization. The patient's blood pressure was controlled while he was in the hospital on his home regimen. The patient had elevated liver enzymes, which trended down throughout his hospitalization, however, remained abnormal on 02/22/18. The patient had a liver ultrasound, which was read as above. The patient had no other tenderness. The patient has no known history of liver disease. The patient does not drink routine alcohol. The patient not had alcohol for a prolonged period of time before his admission to the hospital. The patient had no other laboratory data consistent with cirrhosis. The patient did not have INR while in the hospital, however, his platelet count was normal and the patient had no other stigmata of cirrhosis. The patient had a lipid profile, which showed cholesterol of 179, LDL cholesterol of 114, and HDL cholesterol of 42.2. The patient had a hemoglobin A1c of 5.2. The patient was not started on statin due to 10-year cardiovascular risk of under 5, however, this may be underestimated due to the patient's ethnicity. The patient's new diagnosis was in the differential of that was including cholecystitis, other GI pathology, coronary artery spasm, esophageal spasm, reflux, and musculoskeletal pain were all discussed with him and that, none of these became evident while he was in the hospital, however, repeat symptoms could lend clarity to the diagnosis. The patient was stable and amenable for discharge on 02/22/18. PHYSICAL EXAMINATION ON THE DAY OF DISCHARGE: General: The patient is a 52- year- old male, who appears stated age, sitting comfortably in bed, in no acute distress. Vital Signs: Temperature 98.2, pulse rate 65, respiratory rate 16, oxygen saturation 97% on room air, and blood pressure 135/78. HEENT: Head normocephalic and atraumatic. Sclerae anicteric. No conjunctival injection. Nasal mucosa moist. Oral mucosa moist. No oropharyngeal erythema, discharge, or exudate. Neck: Supple and nontender. No lymphadenopathy. No carotid bruits auscultated. No JVD. Cardiac: Regular rate and rhythm. No clicks, murmurs, gallops, or rubs. Pulses 2+ in bilateral dorsalis pedis, posterior tibial, and radial areas. Respiratory: Clear to auscultation bilaterally. No wheezes, rales, or rhonchi. Good air exchange bilaterally. Abdomen: Soft, nontender, and nondistended. Bowel sounds present and normoactive in all 4 quadrants. No hepatosplenomegaly. No abdominal bruits auscultated. No hepatojugular reflux. Negative Kessler sign. Genitourinary: No suprapubic or CVA tenderness. Skin: Clean, dry, and intact. No rash. Neuro: Cranial nerves II through XII grossly intact. No focal deficits. Alert and oriented x3. Psychiatric: Pleasant and cooperative. LABORATORY DATA ON DAY OF DISCHARGE: White blood cell count 6.1, hemoglobin 13.8, platelet count 218. Sodium 137, potassium 3.5, chloride 100, carbon dioxide 26, anion gap 11, BUN 12, creatinine 1.13, glucose 96. Hemoglobin A1c 5.2, calcium 9.5, bilirubin 0.9, AST 43, ALT 52, alkaline phosphatase 51, protein 7.8, albumin 4.2, globulin 3.6, triglycerides 115, cholesterol 179, LDL cholesterol 114, HDL cholesterol 42.2. DISCHARGE PLAN: The patient will be discharged to home. The patient had negative troponins. No EKG changes. The patient had negative stress test earlier this year. The patient has a very low risk for [place]. The patient will be started on aspirin for primary prophylaxis of [place]. This can be discontinued at the instruction of patient's primary care provider if he feels it is not appropriate. Given the patient's age and risk factors, the patient has fatty infiltration of the liver and elevated liver enzymes indicating probable nonalcoholic steatohepatitis. The patient will be started on vitamin E, the patient should have routine surveillance and risk stratification to prevent the progression to cirrhosis. It has been discussed with the patient lifestyle modifications including exercise and weight loss that could help optimize his risk for progressive liver disease. The patient should engage in activities as tolerated and have a heart-healthy diet without caffeine. The patient should return to the hospital for current chest pain, severe shortness of breath, or other alarming symptoms. The patient should take nitroglycerin for recurrent chest pain, but if he does, should still return to the hospital. TIME SPENT: Approximately 60 minutes was spent on the discharge of this patient , 30 of which was spent [id number] with the patient, obtaining history and physical and discussing treatment plan. JARETH RICARDO [id number]/MARIAMA #: [id number] ANGEL
== END 2018-02-22 15:58 | disposition home or self-care (01) ==
LOC: ED 13:42 → MEDTELE 17:39
PROVIDERS: ADMIT Internal Medicine; ATTEND Internal Medicine
DX: R07.9 Chest pain, unspecified (principal); R74.8 Abnormal levels of other serum enzymes; K80.20 Calculus of gallbladder without cholecystitis without obstruction; K21.9 Gastro-esophageal reflux disease without esophagitis; G47.33 Obstructive sleep apnea (adult) (pediatric); K76.0 Fatty (change of) liver, not elsewhere classified; Z79.82 Long term (current) use of aspirin; Z79.899 Other long term (current) drug therapy; Z88.8 Allergy status to other drugs, medicaments and biological substances; I10 Essential (primary) hypertension; R00.1 Bradycardia, unspecified; Z82.49 Family history of ischemic heart disease and other diseases of the circulatory system
CPT/HCPCS: 36415; 71045; 76705; 80048; 80053; 80061; 80076; 83036; 83605; 83880; 84484; 85025; 93005; 99284; A9270-GY; G0378

== ENCOUNTER 2018-05-09 14:51 | Emergency (ER) | payer SELFPAY ==
[2018-05-09] MEDS ORDERED: Aspirin 81 mg CHEW TAB* 81 MG TAB.CHEW PO ONE (15:06)
[2018-05-09] MEDS ORDERED: Nitroglycerin 2% OINT* 1 GM PAK TOPICAL ONE (15:06)
--- NOTE | 2018-05-09 15:12 | ED ---
HPI Chest Pain - HPI Summary HPI Summary: This pt is a 52 y/o male presenting to [facility] c/o sudden onset of chest pain today. Pt reports he has had intermittent chest pain for the last 2 days. Today he notes his chest pain became constant since 14:30 today. Pt notes that at onset of chest pain he was sitting down. He describes mid sternal chest pain, non radiating, rating it 6/10 in severity. Additionally notes dizziness. Denies recent heavy lifting. Denies fever, SOB, nausea, vomiting, cough. Pt had 2 NTG sublingual and aspirin 324 mg REALTIME REPORTER. Denies any hx of cardiac problems. Denies drug, alcohol, tobacco use. FHx of mother with ND at age 73. PMHx: HTN, GERD. His last stress test was 1 year ago and it was normal. - History of Current Complaint Time Seen by Provider: 05/09/18 15:00 Hx Obtained From: Patient Onset/Duration: Started Minutes Ago - at about 14:30 today, Still Present Timing: Lasting Minutes Current Severity: Moderate Pain Intensity: 6 Pain Scale Used: 0-10 Numeric Chest Pain Location: Mid Sternal Chest Pain Radiates: No Aggravating Factor(s): Nothing Alleviating Factor(s): Nothing Associated Signs and Symptoms: Positive: Chest Pain, Dizziness. Negative: Fever , Chills, Nausea, Cough, Vomiting - Additional Pertinent History Primary Care Physician: FERMÍN - Allergy/Home Medications Allergies/Adverse Reactions: Allergies Allergy/AdvReac Type Severity Reaction Status Date / Time lisinopril Allergy Coughing Verified 09/25/17 16:58 SEASONAL ENVIRONMENTAL Allergy RUNNY Uncoded 09/25/17 16:37 ALLERGIES NOSE, WATERY EYES, CONGESTION PMH/Surg Hx/FS Hx/Imm Hx Endocrine/Hematology History: Denies: Hx Diabetes Cardiovascular History: Reports: Hx Angina, Hx Hypertension - CONTROL WITH MEDS Denies: Hx Coronary Artery Disease, Hx Myocardial Infarction, Hx Valvular Heart Disease Respiratory History: Reports: Hx Sleep Apnea Denies: Hx Asthma, Hx Chronic Obstructive Pulmonary Disease (COPD) Sensory History: Denies: Hx Contacts or Glasses, Hx Hearing Aid Opthamlomology History: Denies: Hx Contacts or Glasses - Surgical History Surgery Procedure, Year, and Place: 2002 REMOVAL OF RIGHT FLANK MASS, [facility] Hx Anesthesia Reactions: No Infectious Disease History: No Infectious Disease History: Denies: Traveled Outside the [place] in Last 30 Days - Family History Known Family History: Positive: Cardiac Disease - mother had ND, Diabetes Negative: Hypertension - Social History Alcohol Use: None Hx Substance Use: No Substance Use Type: Reports: None Hx Tobacco Use: No Smoking Status (MU): Never Smoked Tobacco Review of Systems Negative: Fever, Chills Positive: Chest Pain Negative: Shortness Of Breath, Cough Negative: Vomiting, Nausea Neurological: Other - POS: dizziness All Other Systems Reviewed And Are Negative: Yes Physical Exam - Summary Physical Exam Summary: Appearance: Well appearing, no pain distress Skin: warm, dry, reflects adequate perfusion Head/face: normal Eyes: EOMI, BALDEMAR ENT: normal Neck: supple, nontender Chest: tenderness to palpation on left chest Respiratory: CTA, breath sounds present Cardiovascular: RRR, pulses symmetrical Abdomen: nontender, soft Musculoskeletal: normal, strength/ROM intact Neuro: normal, sensory motor intact, A&Ox3 Triage Information Reviewed: Yes Vital Signs On Initial Exam: Initial Vitals Temp Pulse Resp BP Pulse Ox 99.0 F 95 16 130/84 95 05/09/18 15:00 05/09/18 15:00 05/09/18 15:00 05/09/18 15:00 05/09/18 15:00 Vital Signs Reviewed: Yes Diagnostics - Vital Signs Vital Signs Temp Pulse Resp BP Pulse Ox 05/09/18 15:00 99.0 F 95 16 130/84 95 - Laboratory Result Diagrams: 05/09/18 15:51 05/09/18 15:54 Lab Statement: Any lab studies that have been ordered have been reviewed, and results considered in the medical decision making process. - Radiology Chest XR Radiology Interpretation Completed By: Radiologist Summary of Radiographic Findings: IMPRESSION: No evidence for acute intrathoracic disease. Dr. Curiel has reviewed this report. - EKG 15:07 Cardiac Rate: NL - 90 bpm EKG Rhythm: Sinus Rhythm Summary of EKG Findings: Old QS changes in inferior leads Re-Evaluation - Re-Evaluation First Eval Re-Evaluation Time: 17:20 Change: Unchanged Comment: Pt still has pain. Chest Pain Course/Dx - Course Assessment/Plan: This pt is a 52 y/o male presenting to [facility] c/o sudden onset of chest pain today. Pt reports he has had intermittent chest pain for the last 2 days. Today he notes his chest pain became constant since 14:30 today. Pt notes that at onset of chest pain he was sitting down. He describes mid sternal chest pain, non radiating, rating it 6/10 in severity. Additionally notes dizziness. Denies recent heavy lifting. Denies fever, SOB, nausea, vomiting, cough. Pt had a stress test in September 2017 that was negative. It is unlikely ACS at present. Pt had 2 NTG sublingual and aspirin 324 mg REALTIME REPORTER. Blood work, chest XR, and EKG obtained. A physical exam was normal. Pt was given ASA and NTG. Chest XR shows No evidence for acute intrathoracic disease. An EKG revealed old QS changes in inferior leads. Pts troponin was negative. Final dx is atypical CP, and pt will be discharged to F/U with cardiology.acs unlikely at present.pt had stress test few months ago which was negative so follow up with cardiology in one week. - Chest Pain Differential Diagnosis/HQI/PQRI: Chest Wall, Lower Respiratory Infection - Diagnoses Provider Diagnoses: Atypical chest pain Discharge - Sign-Out/Discharge Documenting (check all that apply): Patient Departure - Discharge - Discharge Plan Condition: Stable Disposition: HOME Patient Education Materials: Chest Pain (ED) Referrals: Marcos Doan MD [Primary Care Provider] - 3 Days Bia Morgan MD [Medical Doctor] - Additional Instructions: RETURN TO THE ED WITH ANY NEW OR WORSENING SYMPTOMS. - Billing Disposition and Condition Condition: STABLE Disposition: Home - Attestation Statements Document Initiated by Shelley: Yes Documenting Scribe: Adilene Walker Provider For Whom Shelley is Documenting (Include Credential): Marco Curiel MD Scribe Attestation: Adilene Vega scribed for Marco Curiel MD on 05/10/18 at 1944. Scribe Documentation Reviewed: Yes Provider Attestation: The documentation as recorded by the Adilene bernstein accurately reflects the service I personally performed and the decisions made by me, Marco Curiel MD Status of Scribe Document: Viewed
--- OUTSIDE RECORDS SUMMARY | 2018-05-09 15:14 | XMS REPORT ---
:1965 External Reference #:[id number] Author Organization [employer] Address [address] [place] [address] [place] [address] Phone [phone] Care Team Providers Name Role Phone Marcos Doan MD Care Team Information Probation And Parole Officer Unavailable Marcos Doan MD Primary Care Physician Unavailable Payers Type Date Identification Numbers Payment Provider Subscriber Commercial Policy Number: [id number] [employer] Samuel Moreira PayID: [id number] [address] [address] [place] [address] Problems Description No Information Family History Date Family Member(s) Problem(s) Comments Father due to MVA () Mother due to MD () Siblings 2 2 brothers Social History Type Date Description Comments Marital Status Lives With Lives With Daughter Lives With Son 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 Amlodipine / Active Tablets 10mg 1 by mouth Unknown Besylate 0000 every day Vitamin C / Active Chewtabs 500mg 1 by mouth Unknown 0000 every day Spironolactone/Hy / Active Tablets 25-25mg Take 1 Unknown drochlorothiazide 0000 Tablet By Mouth Every Day For Blood Pressure Aspirin Low Dose / Active Tablets 81mg Take [address] Tablet By Mouth Every Day Nitrostat / Active Tablets 0.4mg Place One Unknown 0000 Sub Tablet Under The Tongue as Needed For Chest Pain, May Repeat Omeprazole / Active Capsules 20mg qd Midura, 0000 DR Marcos MD Metamucil Free & / Active Powder 43% 1 Unknown Natural 0000 tablespoon a day mixed w/ water Emergen-C Immune / Active Packet 9.3g Unknown 0000 Vitamin E / Active Capsules 400Unit 1 by mouth Unknown 0000 twice daily Phentermine HCL / Hx Capsules 37.5mg 1 by mouth Unknown 0000 every day Clindamycin HCL / Hx Capsules 300mg 1 tabs by Unknown 0000 mouth 4 times a day Phendimetrazine / Hx Tablets 35mg 1 tablet by Unknown Tartrate 0000 - mouth 3 04/18/ times per 2018 day prior to [facility] weight loss Vital Signs Date Vital Result Comment 04/19/2018 Height 67 inches 5'7" Weight 261.00 lb Heart Rate 76 /min BP Systolic Sitting 118 mmHg BP Diastolic Sitting 82 mmHg Respiratory Rate 14 /min O2 % BldC Oximetry 97 % BMI (Body Mass Index) 40.9 kg/m2 Neck Circumference in inches 19 01/17/2017 Height 67 inches 5'7" Weight 247.00 lb Heart Rate 80 /min BP Systolic 154 mmHg BP Diastolic 96 mmHg Respiratory Rate 18 /min Body Temperature 97.8 F BMI (Body Mass Index) 38.7 kg/m2 Results Description No Information Procedures Date CPT Code Description Status 09/26/2017 86509 Treadmill Interp/Report Only Completed 09/26/2017 80389 Stress Test Supervsn W/Out I/R Completed 09/26/2017 35774 EKG, Interpretation Only Completed 01/17/2017 42207 Anoscopy Completed Encounters Type Date Location Provider CPT E/M Dx Office Visit 04/19/2018 [place] [address] G47.33 2:30p [facility] R53.83 E66.01 Office Visit 03/06/2018 11:59a [facility],JARETH Wheeler 43890 R07.9 Hospitalists R94.5 K80.20 Office Visit 02/21/2018 1:23p [facility],JARETH Wheeler 27375 R07.9 Hospitalists R06.02 Office Visit 09/26/2017 1:18p [facility], Charis Ngueyn M.D. 43004 I10 Hospitalists E66.9 R07.9 Z68.41 Office Visit 09/25/2017 1:17p [facility], JARETH Douglas 93446 I10 Hospitalists E66.9 R07.9 Z68.41 Office Visit 01/17/2017 8:30a [place] [address] K61.1 Of [facility] K62.5 K64.0 Office Visit 09/22/2009 1:45a [facility], Wilfrido Maldonado M.D. 10975 786.59 Hospitalists 780.2 401.9 278.00 Office Visit 09/21/2009 2:15a [facility], Radhames Ochoa M.D. 92381 786.50 Hospitalists Plan of Care Future Appointment(s):05/24/2018 1:00 pm - Melida Linares DNP, RN, SPORTS TEACHER-BC at [facility]04/19/2018 - Nellie Yoder MDG47.33 Obstructive sleep apnea (adult) (pediatric)New Orders:Sleep Study BipapSleep- HomecareFollow up:1 iscqpU53.83 Other hxemvuyI90.01 Morbid (severe) obesity due to excess calories
[2018-05-09 16:11] LABS: ABS Basophils 0 10^3/ul (0-0.2); ABS Eosinophils 0.1 10^3/ul (0-0.6); ABS Lymphocytes 0.5 10^3/ul (1.0-4.8); ABS Monocytes 0.4 10^3/ul (0-0.8); ABS Nucleated RBC 0 10^3/ul; Eosinophil % 0.8 %; Hematocrit 41 % (42-52); Hemoglobin 13.6 g/dl (14.0-18.0); Lymphocyte % 7.6 %; Mean Corpuscular HGB Conc 33 g/dl (31-36); Mean Corpuscular Hemoglobin 29 pg (27-31); Mean Corpuscular Volume 88 fL (80-94); Mean Platelet Volume 8.6 fL (7.4-10.4); Nucleated Red Blood Cells % 0.1; Platelet Count 228 10^3/ul (150-450); Red Blood Count 4.66 10^6/ul (4.00-5.40); Red Cell Distribution Width 13 % (10.5-15); White Blood Count 7.1 10^3/ul (3.5-10.8)
[2018-05-09 16:13] LABS: INR 1.04 (0.77-1.02)
[2018-05-09 19:43] VITALS: BP 107/69
== END 2018-05-09 19:42 | disposition home or self-care (01) ==
LOC: ED 14:51
DX: R07.89 Other chest pain (principal); R42 Dizziness and giddiness; I10 Essential (primary) hypertension; K21.9 Gastro-esophageal reflux disease without esophagitis
CPT/HCPCS: 36415; 71045; 80053; 83605; 83880; 84484; 85025; 85610; 85730; 93005; 99282; A9270-GY

== ENCOUNTER → 2018-06-04 17:03 | Emergency (ER) | payer BC ==
[~2018-06-04 17:03] MED LIST: Ketorolac INJ* 30 MG/ML 1 ML VIAL IV PUSH ONE
--- OUTSIDE RECORDS SUMMARY | 2018-06-04 17:25 | XMS REPORT | Continuity of Care Document ---
:1965 External Reference #:[id number] Author Name Andi Clark Care Team Providers Name Role Phone Marcos Doan MD Primary Care Physician Unavailable Payers Type Date Identification Numbers Payment Provider Subscriber Policy Number: [id number] BS Facets Sirathorn Balakula PayID: [id number] [address] [address] [place] [address] Expires: 2018 Policy Number: [id number] Facets Sirathorn Balakula PayID: [id number] [place] [address] Advance Directives Description No Information Available Problems Description No Information Family History Date Family Member(s) Problem(s) Comments Father due to MVA () - at 29 y.o. Mother due to [place] () - at 73 r/t [place] Siblings 2 2 brothers: 1 brother with fibromyalgia;2nd brother with gout Social History Type Date Description Comments Sex Unknown Marital Status Lives With Lives With Daughter Lives With Son Occupation [employer] Tobacco Use Start: Unknown End: Former Cigarette Smoked for 10 years, Unknown Smoker 1 ppd; quit in 1995 Smoking Status Reviewed: 05/28/18 Former Cigarette Smoked for 10 years, Smoker 1 ppd; quit in 1995 ETOH Use Rarely consumes once or twice a year alcohol only Tobacco Use Start: Unknown End: Patient is a former Unknown smoker Recreational Drug Use Denies Drug Use Exercise Type/Frequency Exercises regularly walks daily, started recently, 30 min on treadmill 7 days/week Allergies, Adverse Reactions, Alerts Date Description Reaction Status Severity Comments 11/29/2016 Lisinopril cough, trouble swallowing Active 05/28/2018 Phentermine Active dizzy and dry mouth Medications Medication Date Status Form Strength Qnty SIG Indications Ordering Provider Metamucil 05/28/ Active 1 tsp by Perry 2017 mouth daily F. mixed with Mauser, water or M.D. juice Metoprolol 05/28/ Active Tablets 25mg 30tab 1 by mouth I10 Perry Succinate ER 2018 ER 24HR s every day Li Swann M.D. Aspirin Low Dose 05/27/ Active Tablets 1 by mouth Unknown Adult 2018 daily Bipap 09/28/ Active Device for use Won 2018 while DWendy Brand, sleeping M.DWendy Amlodipine / Active Tablets 10mg 1 by mouth Unknown Besylate 0000 every day Vitamin C / Active Chewtabs 1000mg 1 by mouth Unknown 0000 every day Spironolactone/Hy / Active Tablets 25-25mg Take 1 Unknown drochlorothiazide 0000 Tablet By Mouth Every Day For Blood Pressure Nitrostat / Active Tablets 0.4mg Place One Unknown 0000 Sub Tablet Under The Tongue as Needed For Chest Pain, May Repeat Omeprazole / Active Capsules 20mg 1 cap by Jenny Doan DR mouth daily MD Marcos Vitamin E / Active Capsules 400Unit 1 tab by Unknown 0000 mouth daily Bipap 05/27/ Hx Device for use Unknown 2017 - while 2017 Phentermine HCL / Hx Capsules 37.5mg 1 by mouth Unknown 0000 every day Clindamycin HCL / Hx Capsules 300mg 1 tabs by Unknown 0000 mouth 4 times a day Phendimetrazine / Hx Tablets 35mg 1 tablet by Unknown Tartrate 0000 - mouth 3 04/18/ times per 2018 day prior to [facility] Aspirin Low Dose / Hx Tablets 81mg Take 1 Unknown 0000 - DR Tablet By 05/15/ Mouth Every 2018 Day Metamucil Free & / Hx Powder 43% 1 Unknown Natural 0000 - tablespoon day mixed 2018 w/ water Emergen-C Immune / Hx Packet 9.3g Unknown 0000 - 2017 Immunizations Description No Information Available Vital Signs Date Vital Result Comment 05/28/2018 2:31pm Height 67 inches 5'7" Weight 258.12 lb no shoes Heart Rate 88 /min BP Systolic 160 mmHg Lue BP Diastolic 88 mmHg Lue BMI (Body Mass Index) 40.4 kg/m2 Ejection Fraction 60% 09/26/17 Nuclear Stress 04/19/2018 1:58pm Height 67 inches 5'7" Weight 261.00 lb Heart Rate 76 /min BP Systolic Sitting 118 mmHg BP Diastolic Sitting 82 mmHg Respiratory Rate 14 /min O2 % BldC Oximetry 97 % BMI (Body Mass Index) 40.9 kg/m2 Neck Circumference in inches 19 01/17/2017 8:34am Height 67 inches 5'7" Weight 247.00 lb Heart Rate 80 /min BP Systolic 154 mmHg BP Diastolic 96 mmHg Respiratory Rate 18 /min Body Temperature 97.8 F BMI (Body Mass Index) 38.7 kg/m2 Results Description No Information Available Procedures Date Code Description Status 05/28/2018 77328 EKG Tracing & Interpretation Completed 02/22/2018 49839 EKG, Interpretation Only Completed 09/26/2017 26004 Treadmill Interp/Report Only Completed 09/26/2017 73023 Stress Test Supervsn W/Out I/R Completed 09/26/2017 05541 EKG, Interpretation Only Completed 01/17/2017 66890 Anoscopy Completed Encounters Type Date Location Provider Dx Diagnosis Office Visit 04/19/2018 [facility] Yoder, G47.33 Obstructive sleep 2:30p [facility] (adult) 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 [employer] (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) R53.83 Other fatigue E66.01 Morbid (severe) obesity due to excess calories Z68.41 Body mass index (BMI) 40.0-44.9, adult Office Visit 03/06/2018 11:[facility]a [facility] R07.9 Chest pain, Assoc,JARETH Gruber unspecified Hospitalists R94.5 Abnormal results of liver function studies K80.20 Calculus of gallbladder w/o cholecystitis w/o obstruction Office Visit 02/21/2018 1:23p [facility] R07.9 Chest pain, Assoc,JARETH Gruber unspecified Hospitalists R06.02 Shortness of breath Office Visit 09/26/2017 1:18p [facility] Nguyen, I10 Essential Assoc,rissa Arreola (primary) Hospitalists hypertension E66.9 Obesity, unspecified R07.9 Chest pain, unspecified Z68.41 Body mass index (BMI) 40.0-44.9, adult Office Visit 09/25/2017 [facility] I10 Essential 1:17p Assoc,pc JARETH Michael (primary) Hospitalists hypertension E66.9 Obesity, unspecified R07.9 Chest pain, unspecified Z68.41 Body mass index (BMI) 40.0-44.9, adult Office Visit 01/17/2017 8:30a Surgical Nomi Jennie K61.1 Rectal abscess [facility] MD Amy K62.5 Hemorrhage of anus and rectum K64.0 First degree hemorrhoids Office Visit 09/22/2009 1:45a [facility] Wil[facility] Maldonado, 786.59 Pain Chest Assoc,rissa Arreola Other Hospitalists 780.2 Syncope & Collapse 401.9 Hypertension Unspec 278.00 Obesity Unspec Office Visit 09/21/2009 2:15a [facility] Radhames Ochoa, 786.50 Pain Chest Assoc,rissa Arreola Unspec Hospitalists Plan of Treatment Future Appointment(s):07/03/2018 10:30 am - Nurse Visit cc at [facility]07/02/2018 12:00 pm - Nurse Visit cc at [facility]06/27/2018 11 :00 am - [place] ECHO Schedule at [facility]06/13/2018 8:30 am - Domi Eubanks N.P. at [facility]07/11/2018 2:00 pm - Melida Linares DNP, RN , IN FILE OPERATOR- at [facility]10/15/2018 2:30 pm - Ez Munoz M.D. at [facility]05/28/2018 - Perry Swann M.D.G47.33 Obstructive sleep apnea (adult) (pediatric) E66.01 Morbid (severe) obesity due to excess caloriesRecommendations:reduce [id number] Chest pain, unspecifiedNew Orders:Echocardiogram, Scheduled: Follow up:ov [facility] 5 mK80.20 Calculus of gallbladder without cholecystitis without breiajG22 Essential (primary) hypertensionNew Medication:Metoprolol Succinate ER 25 mg - 1 by mouth every dayR00.2 PalpitationsNew Orders:Holter Monitor, Scheduled: 07/02/18E87.6 HypokalemiaFollow up:ov FISHER NET 2 weeks to check hr bp on medsK21.9 Gastro-esophageal reflux disease without esophagitis
--- NOTE | 2018-06-04 17:33 | ED ---
HPI Chest Pain - HPI Summary HPI Summary: The patient is a 52 y/o M presenting to [facility] with a chief complaint of CP starting around 17:00. He was at the store when he had sudden onset of diffuse anterior chest pain, rated 6/10 in severity. With onset, he felt diaphoretic, took Aspirin, and sat down. He took his blood pressure, which was 190/100. He additionally had SOB. He denies nausea. His pain has somewhat resolved with current severity rated 4/10. He had a similar episode a month ago, and he saw Dr. Swann about a week ago; he was instructed to take Aspirin and go to the ED if the pain occurs. - History of Current Complaint Chief Complaint: EDChestPainROMI Time Seen by Provider: 06/04/18 17:17 Hx Obtained From: Patient Onset/Duration: Started Hours Ago - at 17:00, Still Present Timing: Constant, Lasting Hours - start at 17:00 Initial Severity: Moderate Current Severity: Moderate Pain Intensity: 4 Pain Scale Used: 0-10 Numeric Chest Pain Location: Diffuse Chest Pain Radiates: No Character: Pressure/Squeezing Aggravating Factor(s): Nothing Alleviating Factor(s): Other: - aspirin Associated Signs and Symptoms: Positive: Shortness of Breath, Diaphoresis. Negative: Nausea - Additional Pertinent History Primary Care Physician: FERMÍN - Allergy/Home Medications Allergies/Adverse Reactions: Allergies Allergy/AdvReac Type Severity Reaction Status Date / Time lisinopril Allergy Coughing Verified 05/30/18 11:03 SEASONAL ENVIRONMENTAL Allergy RUNNY Uncoded 05/30/18 11:03 ALLERGIES NOSE, WATERY EYES, CONGESTION PMH/Surg Hx/FS Hx/Imm Hx Endocrine/Hematology History: Denies: Hx Diabetes Cardiovascular History: Reports: Hx Angina, Hx Hypertension - CONTROL WITH MEDS Denies: Hx Coronary Artery Disease, Hx Myocardial Infarction, Hx Valvular Heart Disease Respiratory History: Reports: Hx Sleep Apnea Denies: Hx Asthma, Hx Chronic Obstructive Pulmonary Disease (COPD) Sensory History: Denies: Hx Contacts or Glasses, Hx Hearing Aid Opthamlomology History: Denies: Hx Contacts or Glasses - Surgical History Surgery Procedure, Year, and Place: 2002 REMOVAL OF RIGHT FLANK MASS, [facility] [place], [place] Hx Anesthesia Reactions: No Infectious Disease History: No Infectious Disease History: Denies: Traveled Outside the [place] in Last 30 Days - Family History Known Family History: Positive: Cardiac Disease - mother had [place], Diabetes Negative: Hypertension - Social History Alcohol Use: None Hx Substance Use: No Substance Use Type: Reports: None Hx Tobacco Use: No Smoking Status (MU): Never Smoked Tobacco Review of Systems Positive: Skin Diaphoresis Positive: Chest Pain - diffuse anterior pressure Positive: Shortness Of Breath Negative: Nausea All Other Systems Reviewed And Are Negative: Yes Physical Exam - Summary Physical Exam Summary: Appearance: Well-appearing, Well-nourished, lying in bed comfortably Skin: Warm, dry, no obvious rash Eyes: sclera anicteric, no conjunctival pallor ENT: mucous membranes moist, pharynx appears normal Neck: Supple, nontender Respiratory: Clear to auscultation, no signs of respiratory distress Cardiovascular: Normal S1, S2. No murmurs. Normal distal pulses in tibial and radial bilaterally. Abdomen: Soft, nontender, normal active bowel sounds present Musculoskeletal: Normal, Strength/ROM Intact Neurological: A&Ox3, awake and alert, mentation is normal, speech is fluent and appropriate Psychiatric: affect is normal, does not appear anxious or depressed Triage Information Reviewed: Yes Vital Signs On Initial Exam: Initial Vitals Temp Pulse Resp BP Pulse Ox 99.2 F 104 20 180/101 100 06/04/18 17:05 06/04/18 17:05 06/04/18 17:05 06/04/18 17:05 06/04/18 17:05 Vital Signs Reviewed: Yes Diagnostics - Vital Signs Vital Signs Temp Pulse Resp BP Pulse Ox 06/04/18 17:05 99.2 F 104 20 180/101 100 - Laboratory Result Diagrams: 06/04/18 17:28 06/04/18 17:28 Lab Statement: Any lab studies that have been ordered have been reviewed, and results considered in the medical decision making process. - Ultrasound No standard instances Ultrasound Interpretation Completed By: Radiologist Summary of Ultrasound Findings: Gallbladder US: 1. Cholelithiasis. No gallbladder wall thickening or pericholecystic fluid. 2. Hepatic steatosis. 3. Pancreas obscured. ED physician has reviewed this report. - EKG 17:12 Cardiac Rate: Tachycardia - 101BPM EKG Rhythm: Sinus Tachycardia EKG Comparison: No Significant Change - No change from 05/09/18. Re-Evaluation - Re-Evaluation First Eval Re-Evaluation Time: 20:16 Change: Improved Comment: The Toradol helped with his pain. I spoke with him concerning US results and discharge home with follow up with Dr. John. Chest Pain Course/Dx - Course Course Of Treatment: The patient is a 52 y/o M with a chief complaint of CP starting around 17:00. He was at the store when he had sudden onset of diffuse anterior chest pain, rated 6/10 in severity. With onset, he felt diaphoretic, took Aspirin, and sat down. He took his blood pressure, which was 190/100. He additionally had SOB and nausea. His pain has somewhat resolved with current severity rated 4/10. He had a similar episode a month ago, and he saw Dr. Swann about a week ago, where he was diagnosed with pericarditis. Physical exam is normal. In the ED course, the patient was given Toradol. Blood work obtained. EKG reveals sinus tachycardia. Gallbladder US reveals cholelithiasis and hepatic steatosis. He is diagnosed with chest pain and gallstones. He will be discharged home with education materials and follow up with Dr. John. He agrees with this plan and understands the need for return to the ED if symptoms worsen. - Diagnoses Provider Diagnoses: Gallstones, Chest pain Discharge - Sign-Out/Discharge Documenting (check all that apply): Patient Departure - Patient will be discharged home. - Discharge Plan Condition: Good Disposition: HOME Patient Education Materials: Chest Pain (ED), Gallstones (ED) Referrals: Solo John MD [Medical Doctor] - Additional Instructions: You do have gallstones, but whether that is the source of your painful episodes is not entirely clear to me. Your blood work did show some mild elevation of your liver enzymes, which we sometimes see in the context of any acute bout of gallbladder pain, so that should be repeated at a time when you are asymptomatic. I think it would be helpful to have one of our general surgeons see you and try to determine if they think this is the cause of your pain. Please call the surgeon's office on Monday to make an appt. In the meantime I would recommend limiting the fat in your diet, and having small meals; the more volume of food and the higher the fat content, the more likely to precipitate a gallbladder attack. - Billing Disposition and Condition Condition: GOOD Disposition: Home - Attestation Statements Document Initiated by Scribe: Yes Documenting Scribe: Jeanne Olivier Provider For Whom Shelley is Documenting (Include Credential): Dr. Lio Sutton MD Scribe Attestation: I, juanita Palomaresed for Dr. Lio Sutton MD on 06/05/18 at 1305. Scribe Documentation Reviewed: Yes Provider Attestation: The documentation as recorded by the Jeanne bernstein accurately reflects the service I personally performed and the decisions made by me, Dr. Lio Sutton MD Status of Scribe Document: Viewed
[2018-06-04 17:42] LABS: ABS Basophils 0 10^3/ul (0-0.2); ABS Eosinophils 0.1 10^3/ul (0-0.6); ABS Lymphocytes 1.5 10^3/ul (1.0-4.8); ABS Monocytes 0.5 10^3/ul (0-0.8); ABS Neutrophils 3.6 10^3/ul (1.5-7.7); ABS Nucleated RBC 0 10^3/ul; Eosinophil % 2.1 %; Hematocrit 42 % (42-52); Hemoglobin 14.2 g/dl (14.0-18.0); Lymphocyte % 26.2 %; Mean Corpuscular HGB Conc 34 g/dl (31-36); Mean Corpuscular Hemoglobin 29 pg (27-31); Mean Corpuscular Volume 87 fL (80-94); Mean Platelet Volume 8.4 fL (7.4-10.4); Nucleated Red Blood Cells % 0.2; Platelet Count 244 10^3/ul (150-450); Red Blood Count 4.83 10^6/ul (4.00-5.40); Red Cell Distribution Width 14 % (10.5-15); White Blood Count 5.7 10^3/ul (3.5-10.8)
[2018-06-04 17:51] LABS: Albumin 4.5 g/dL (3.2-5.2); Albumin/Globulin Ratio 1.2 (1-3); BUN/Creatinine Ratio 15.1 (8-20); Calcium 9.6 mg/dL (8.6-10.3); EGFR Non-African American 60.6 (>60); Globulin 3.7 g/dL (2-4); Potassium 3.8 mmol/L (3.5-5.0); Total Bilirubin 0.7 mg/dL (0.2-1.0); Total Protein 8.2 g/dL (6.4-8.9)
[2018-06-04 20:33] VITALS: BP 126/61
== END | disposition home or self-care (01) ==
LOC: ED 17:03
DX: R07.9 Chest pain, unspecified (principal); I31.9 Disease of pericardium, unspecified; R00.0 Tachycardia, unspecified; I10 Essential (primary) hypertension; I20.9 Angina pectoris, unspecified; G47.30 Sleep apnea, unspecified
CPT/HCPCS: 36415; 76705; 80053; 84484; 85025; 93005; 96374; 99283; J1885

== ENCOUNTER 2018-07-29 23:12 | Emergency (ER) | payer BC ==
--- OUTSIDE RECORDS SUMMARY | 2018-07-29 23:28 | XMS REPORT | Continuity of Care Document ---
:1965 External Reference #:[id number] Author Name Aminta Fernandez Care Team Providers Name Role Phone Ana Anaya MD Primary Care Physician Unavailable Payers Type Date Identification Numbers Payment Provider Subscriber Policy Number: [id number] BS Facets Sirathorn Balakula PayID: [id number] [address] [address] [place] [address] Expires: 2018 Policy Number: [id number] BS Facets Sirathorn Balakula PayID: [id number] [address] [address] [place] [address] Advance Directives Description No Information Available Problems Description No Information Family History Date Family Member(s) Problem(s) Comments Father due to MVA () - at 29 y.o. 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 Tobacco Use Start: Unknown End: Former Cigarette Smoked for 10 years, Unknown Smoker 1 ppd; quit in 1995 Smoking Status Reviewed: 07/11/18 Former Cigarette Smoked for 10 years, Smoker 1 ppd; quit in 1995 ETOH Use Rarely consumes once or twice a year alcohol only Tobacco Use Start: Unknown End: Patient is a former Unknown smoker Recreational Drug Use Denies Drug Use Exercise Type/Frequency Exercises regularly walks daily, 30 min on treadmill 7 days/week Allergies, Adverse Reactions, Alerts Date Description Reaction Status Severity Comments 11/29/2016 Lisinopril cough, trouble swallowing Active 05/28/2018 Phentermine Active dizzy and dry mouth Medications Medication Date Status Form Strength Qnty SIG Indications Ordering Provider Metamucil 05/28/ Active 1 tsp by Perry 2018 mouth daily F. mixed with Mauser, water or M.DWendy juice Aspirin Low Dose 05/27/ Active Tablets 81mg 1 by mouth Unknown Adult 2018 daily Bipap 09/28/ Active Device for use Wno 2018 while Stefan Ibarra, sleeping M.DWendy Amlodipine / Active Tablets 10mg 1 by mouth Unknown Besylate 0000 every day Vitamin C / Active Chewtabs 125mg 1 by mouth Unknown 0000 every day Spironolactone/Hy / Active Tablets 25-25mg Take 1 Unknown drochlorothiazide 0000 Tablet By Mouth Every Day For Blood Pressure Nitrostat / Active Tablets 0.4mg Place One Unknown 0000 Sub Tablet Under The Tongue as Needed For Chest Pain, May Repeat Omeprazole / Active Capsules 20mg 1 cap by Jenny Anaya DR mouth daily MD Ana Vitamin E / Active Capsules 400Unit 1 tab by Unknown 0000 mouth daily Irbesartan / Active Tablets 75mg Take 1 Unknown 0000 Tablet By Mouth Every Day For High Blood Pressure Metoprolol 05/28/ Hx Tablets 25mg 30tab 1/2 tab by I10 Perry Succinate ER 2018 - ER 24HR s mouth at F. 07/10/ night Pratibha Swann.Stefan Bipap 05/27/ Hx Device for use Unknown 2017 - while 05/27/ sleeping 2017 Phentermine HCL / Hx Capsules 37.5mg 1 by mouth Unknown 0000 every day Clindamycin HCL / Hx Capsules 300mg 1 tabs by Unknown 0000 mouth 4 times a day Phendimetrazine / Hx Tablets 35mg 1 tablet by Unknown Tartrate 0000 - mouth 3 04/18/ times per 2018 day prior to [facility] for weight loss Aspirin Low Dose / Hx Tablets 81mg Take 1 Unknown 0000 - DR Tablet By 05/15/ Mouth Every 2018 Day Metamucil Free & / Hx Powder 43% 1 Unknown Natural 0000 - tablespoon 05/16/ a day mixed 2017 w/ water Emergen-C Immune / Hx Packet 9.3g Unknown 0000 - 2017 Immunizations Description No Information Available Vital Signs Date Vital Result Comment 07/11/2018 1:43pm Height 67 inches 5'7" Weight 246.25 lb Heart Rate 94 /min BP Systolic Sitting 128 mmHg Lue large cuff BP Diastolic Sitting 78 mmHg Lue large cuff Respiratory Rate 16 /min O2 % BldC Oximetry 96 % On Ra BMI (Body Mass Index) 38.6 kg/m2 06/13/2018 8:33am Height 67 inches 5'7" Weight 248.00 lb Heart Rate 80 /min BP Systolic Sitting 144 mmHg right arm BP Diastolic Sitting 96 mmHg right arm BMI (Body Mass Index) 38.8 kg/m2 05/28/2018 2:31pm Height 67 inches 5'7" Weight [...] BMI (Body Mass Index) 38.7 kg/m2 Results Test Date Facility Test Result H/L Range Note Comp Metabolic Panel 05/30/2018 [facility] Sodium 140 mmol/L N 135-145 [address] [place] [address] [phone] Potassium 4.1 mmol/L N 3.5-5.0 Chloride 101 mmol/L N 101-111 Co2 Carbon Dioxide 30 mmol/L N 22-32 Anion Gap 9 mmol/L N 2-11 Glucose 109 mg/dL High 70-100 Blood Urea Nitrogen 24 mg/dL N 6-24 Creatinine 1.14 mg/dL N 0.67-1.17 BUN/Creatinine Ratio 21.1 High 8-20 Calcium 10.4 mg/dL High 8.6-10.3 Total Protein 8.0 g/dL N 6.4-8.9 Albumin 4.6 g/dL N 3.2-5.2 Globulin 3.4 g/dL N 2-4 Albumin/Globulin Ratio 1.4 N 1-3 Alkaline Phosphatase 60 U/L N 34-104 Alt 50 U/L N 7-52 Ast 37 U/L N 13-39 Egfr Non- 68.0 >60 Egfr 82.3 >60 1 Laboratory test 05/30/2018 [facility] TSH (Thyroid 2.82 mcIU/mL N 0.34-5.60 [address] Stim Horm) [place] [address] [phone] Magnesium 1.9 mg/dL N 1.9-2.7 3 D Dimer Quantitative < 200 ng/mL N Less Than 230 4 Amylase 110 U/L High 29-103 5 GGTP 30 U/L N 9-64.0 6 Total Bilirubin 0.60 mg/dL N 0.2-1.0 Erythrocyte Sed Rate 35 mm/Hr High 0-20 7 CRP High Sensitivity 4.59 mg/L High <2.00 8 Lipid Panel - 05/30/2018 [facility] Creatine Kinase(CK) 100 U/L N 10-223 [address] [place] [address] [phone] Lipid Profile 05/30/2018 [facility] Triglycerides 123 mg/dL 10 (Trig/Chol/HDL [address] ) [place] [address] [phone] Cholesterol 192 mg/dL 11 HDL Cholesterol 48.3 mg/dL 12 LDL Cholesterol 119 mg/dL 13 Laboratory test 05/30/2018 [facility] Hemoglobin A1c 5.0 % N 4.0-5.[address] (Glyco HGB) [place] [address] [phone] 1 Because ethnic data is not always readily available, this report includes an eGFR for both -Americans and non- Americans. The National Kidney Disease Education Program (NKDEP) does not endorse the use of the MDRD equation for patients that are not between the ages of 18 and 70, are , have extremes of body size, muscle mass, or nutritional status, or are non- or non-. According to the National Kidney Foundation, irrespective of diagnosis, the stage of the disease is based on the level of kidney function: Stage Description GFR(mL/min/1.73 m(2)) 1 Kidney damage with normal or decreased GFR 90 2 Kidney damage with mild decrease in GFR 60-89 3 Moderate decrease in GFR 30-59 4 Severe decrease in GFR 15-29 5 Kidney failure <15 (or dialysis) 2 FASTING Copy Result to: ANA ANAYA ([id number]) 3 FASTING Copy Result to: ANA ANAYA ([id number]) 4 Please note: The following may produce a false positive D Dimer test: - Rheumatoid factor greater than 60 IU/ml - Plasma hemoglobin greater than 0.05 gm/dl - Bilirubin greater than 50 mg/dl - Lipids greater than 1000 mg/dl - FDP greater than 20 ug/ml 5 FASTING Copy Result to: ANA ANAYA ([id number]) 6 FASTING Copy Result to: ANA ANAYA ([id number]) 7 FASTING Copy Result to: ANA ANAYA ([id number]) 8 FASTING Copy Result to: ANA ANAYA ([id number]) 9 FASTING Copy Result to: ANA ANAYA ([id number]) 10 Desirable: <150 Borderline High: 150-199 High: 200-499 Very High: >500 11 Desirable: <200 Borderline High: 200-239 High: >239 12 Low: <40 Desirable: 40-60 High: >60 13 Desirable: <100 Near Optimal: 100-129 Borderline High: 130-159 High: 160-189 Very High: >189 14 Therapeutic target for the treatment of diabetes mellitus patients is <7% HBA1C, and in selective patients <6.0%. Please refer to [place] Diabetes [employer] diabetic care guidelines for further information. Procedures Date Code Description Status 07/07/2018 67068 Holter Monitor Review (24 hr)dr review & interp only Completed 07/02/2018 29037 ECG Monitor/Recording W/Visual Superimposition Scanning Completed 07/02/2018 29729 ECG Monitor/Recording W/Visual Superimposition Scanning Completed 06/27/2018 59982 ECHO Transthoracic, Real-Time 2D With Doppler And Color Completed Flow 06/27/2018 89942 ECHO Transthoracic, Real-Time 2D With Doppler And Color Completed Flow 06/22/2018 02396 Polysomnography Sleep Staging 4+ Parameters W/Cpap Completed 05/28/2018 01351 EKG Tracing & Interpretation Completed 02/22/2018 73706 EKG, Interpretation Only Completed 09/26/2017 67176 Treadmill Interp/Report Only Completed 09/26/2017 07391 Stress Test Supervsn W/Out I/R Completed 09/26/2017 20117 EKG, Interpretation Only Completed 01/17/2017 54406 Anoscopy Completed Encounters Type Date Location Provider Dx Diagnosis Office Visit 06/13/2018 [facility] Domi Eubanks, E66.01 Morbid ( severe) 8:30a N.P. obesity due to excess calories R07.9 Chest pain, unspecified K80.20 Calculus of gallbladder w/o cholecystitis w/o obstruction I10 Essential (primary) hypertension Z68.38 Body mass index (BMI) 38.0-38.9, adult Office Visit 05/28/2018 3:00p [facility] Perry Jefferson G47.33 Obstructive sleep Elba Swann apnea (adult) (pediatric) E66.01 Morbid (severe) obesity due to excess calories R07.9 Chest pain, unspecified K80.20 Calculus of gallbladder w/o cholecystitis w/o obstruction I10 Essential (primary) hypertension R00.2 Palpitations E87.6 Hypokalemia K21.9 Gastro-esophageal reflux disease without esophagitis Office Visit 04/19/2018 2:30p [facility] Nellie G47.33 Obstructive sleep [facility] Beba apnea (adult) 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 (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) R53.83 Other fatigue E66.01 Morbid (severe) obesity due to excess calories Z68.41 Body mass index (BMI) 40.0-44.9, adult Office Visit 03/06/2018 11:59a [facility] [place] R07.9 Chest pain, Assoc,pc Josephine PA unspecified Hospitalists R94.5 Abnormal results of liver function studies K80.20 Calculus of gallbladder w/o cholecystitis w/o obstruction Office Visit 02/21/2018 1:23p [facility] [place] R07.9 Chest pain, Assoc,pc Josephnie PA unspecified Hospitalists R06.02 Shortness of breath Office Visit 09/26/2017 1:18p [facility] Charis Nguyen, I10 Essential Assoc,rissa Arreola (primary) Hospitalists hypertension E66.9 Obesity, unspecified R07.9 Chest pain, unspecified Z68.41 Body mass index (BMI) 40.0-44.9, adult Office Visit 09/25/2017 [facility] Bahgat I10 Essential 1:17p Assoc,pc JARETH Michael (primary) Hospitalists hypertension E66.9 Obesity, unspecified R07.9 Chest pain, unspecified Z68.41 Body mass index (BMI) 40.0-44.9, adult Office Visit 01/17/2017 8:30a Surgical Nomi Jennie K61.1 Rectal abscess [facility] MD Amy K62.5 Hemorrhage of anus and rectum K64.0 First degree hemorrhoids Office Visit 09/22/2009 1:45a [facility] Wilfrido Maldonado, 786.59 Pain Chest Assoc,rissa Arreola Other Hospitalists 780.2 Syncope & Collapse 401.9 Hypertension Unspec 278.00 Obesity Unspec Office Visit 09/21/2009 2:15a [facility] Radhames Ochoa, 786.50 Pain Chest Assoc,rissa Arreola Unspec Hospitalists Plan of Treatment Future Appointment(s):10/09/2018 10:30 am - Melida Linares DNP, RN, MORRO- at [facility]10/15/2018 2:30 pm - Ez Munoz M.D. at [facility]07/11/2018 - Melida Linares DNP, RN, CONTRACT WRITER-BCG47.33 Obstructive sleep apnea (adult) (pediatric)Comments:2009 and was diagnosed with severe obstructive sleep apnea AHI 99, O2 ryne 57%.BiPAP titration recommendation 20/16 wt 261#Follow up:3 monthsRecommendations: Continue PAP device, Benefitting and compliant with treatment. Increase BiPAP pressure 20/16. Order sent to [facility] for this. Order provided for mask and supplies for you to order on-line store. Can use the BiPAP without humidifier, BiPAP adjusts to altitude. Use nasal saline gel, if not using humidifier Cleaning Wipe off mask daily (baby wipe-no scent, or warm water) Clean mask, tubing, filter, and water chamber weekly in mild no scent dish soap and water. Hang to dry. If you have any sleepiness while driving you MUST avoid operating a vehicle or machinery. If you have difficulty with your equipment, or need to replace your mask or hoses, please contact your homecare agency. A weight change of 20 pounds or more may have an effect on your equipment; if you are experiencing problems please call johnathon appointment. If you have any further questions, please call the [facility] at [phone].Z68.38 Body mass index (BMI) 38.0-38.9, adultRecommendations:Continue with weight loss efforts
--- OUTSIDE RECORDS SUMMARY | 2018-07-29 23:28 | XMS REPORT | Continuity of Care Document ---
:1965 External Reference #:[id number] Author Name Yris Damian Care Team Providers Name Role Phone Ana Anaya MD Primary Care Physician Unavailable Payers Date Identification Numbers Payment Provider Subscriber Policy Number: [id number] BS Facets Sirathorn Balakula PayID: [id number] [address] [place] [address] Expires: 2018 Policy Number: [id number] BS Facets Sirathorn Balakula PayID: [id number] [place] [address] Advance Directives Description No Information Available Problems Description No Information Family History Date Family Member(s) Observation Comments Father due to MVA () - at 29 y.o. 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 daily Mauser, mixed with M.D. water or juice Aspirin Low Dose 05/27/20 Active Tablets 81mg 1 by mouth Unknown Adult 18 daily Bipap 09/29/19 Active Device for use Won 18 while D. Brand, sleeping M.D. Amlodipine Active Tablets 10mg 1 by mouth Unknown Besylate 00 every day Vitamin C Active Chewtabs 125mg 1 by mouth Unknown 00 every day Spironolactone/H Active Tablets 25-25mg Take 1 Unknown ydrochlorothiazi 00 Tablet By de Mouth Every Day For Blood Pressure Nitrostat Active Tablets 0.4mg Place One Unknown 00 Sub Tablet Under The Tongue as Needed For Chest Pain, May Repeat Omeprazole Active Capsules 20mg 1 cap by Olimpia, 00 DR mouth MD Ana daily Vitamin E Active Capsules 400Unit 1 tab by Unknown 00 mouth daily Irbesartan Active Tablets 75mg Take 1 Unknown 00 Tablet By Mouth Every Day For High Blood Pressure Metoprolol 05/28/20 Hx Tablets 25mg 30tab 1/2 tab by I10 Perry Succinate ER 18 - ER 24HR s mouth at F. 07/10/19 night Mauser, 19 M.D. Bipap 05/27/20 Hx Device for use Unknown 18 - while 05/27/20 sleeping 18 Phentermine HCL Hx Capsules 37.5mg 1 by mouth Unknown 00 - every day Unknown Clindamycin HCL Hx Capsules 300mg 1 tabs by Unknown 00 - mouth 4 Unknown times a day Phendimetrazine Hx Tablets 35mg 1 tablet Unknown Tartrate 00 - by mouth 3 04/18/20 times per 18 day prior to [facility] for weight loss Aspirin Low Dose Hx Tablets 81mg Take 1 Unknown 00 - DR Tablet By 05/15/20 Mouth 18 Every Day Metamucil Free & Hx Powder 43% 1 Unknown Natural 00 - tablespoon 05/16/20 a day 18 mixed w/ water Emergen-C Immune Hx Packet 9.3g Unknown 00 - 05/16/20 18 Immunizations Description No Information Available Vital Signs Date Vital Result Comment 07/18/2018 9:24am Height 67 inches 5'7" Weight 247.00 lb Heart Rate 86 /min BP Systolic Sitting 142 mmHg BP Diastolic Sitting 84 mmHg BP Systolic Standing 138 mmHg BP Diastolic Standing 80 mmHg BMI (Body Mass Index) 38.7 kg/m2 07/11/2018 1:43pm Height 67 inches 5'7" Weight [...] H/L Range Note Comp Metabolic Panel 05/30/2018 [facility] Sodium 140 mmol/L N 135-[address] [place] [address] [phone] Potassium 4.1 mmol/L N 3.5-5.0 Chloride 101 [...] Egfr 82.3 >60 1 Laboratory test 05/30/2018 [facility] TSH (Thyroid 2.82 mcIU/mL N 0.34-5.60 [address] Stim Horm) [place] [address] [phone] Magnesium 1.9 mg/dL N 1.9-2.7 3 D Dimer Quantitative < 200 ng/mL N Less Than 230 4 Amylase 110 U/L High 29-103 5 GGTP 30 U/L N 9-64.0 6 Total Bilirubin 0.60 mg/dL N 0.2-1.0 Erythrocyte Sed Rate 35 mm/Hr High 0-20 7 CRP High Sensitivity 4.59 mg/L High <2.00 8 Lipid Panel - 05/30/2018 [facility] Creatine Kinase(CK) 100 U/L N 10-[address] [place] [address] [phone] Lipid Profile 05/30/2018 [facility] Triglycerides 123 mg/dL 10 (Trig/Chol/HDL [address] ) [place] [address] [phone] Cholesterol 192 mg/dL 11 HDL Cholesterol 48.3 mg/dL 12 LDL Cholesterol 119 mg/dL 13 Laboratory test 05/30/2018 [facility] Hemoglobin A1c 5.0 % N 4.0-5.6 [address] (Glyco HGB) [place] [address] [phone] 1 Because ethnic data is not always [...] 2 FASTING Copy Result to: ANA ANAYA ([id number]) 3 FASTING Copy Result to: ANA ANAYA ([id number]) 4 Please note: The following may produce a false positive D Dimer test: - Rheumatoid factor greater than 60 IU/ml - Plasma hemoglobin greater than 0.05 gm/dl - Bilirubin greater than 50 mg/dl - Lipids greater than 1000 mg/dl - FDP greater than 20 ug/ml 5 FASTING Copy Result to: ANA ANAYA ([id number]) 6 FASTING Copy Result to: ANA ANAYA ([id number]) 7 FASTING Copy Result to: ANA ANAYA ([id number]) 8 FASTING Copy Result to: ANA ANAYA ([id number]) 9 FASTING Copy Result to: ANA ANAYA ([id number]) 10 Desirable: <150 Borderline High: 150-199 High: 200-499 Very High: >500 11 Desirable: <200 Borderline High: 200-239 High: >239 12 Low: <40 Desirable: 40-60 High: >60 13 Desirable: <100 Near Optimal: 100-129 Borderline High: 130-159 High: 160-189 Very High: >189 14 Therapeutic target for the treatment of diabetes mellitus patients is <7% HBA1C, and in selective patients <6.0%. Please refer to [place] Diabetes Association diabetic care guidelines for further information. Procedures Date Code Description Status 07/07/2018 09848 Holter Monitor Review (24 hr) review & interp only Completed 07/02/2018 95005 ECG Monitor/Recording W/Visual Superimposition Scanning Completed 07/02/2018 59536 ECG Monitor/Recording W/Visual Superimposition Scanning Completed 06/27/2018 22636 ECHO Transthoracic, Real-Time 2D With Doppler And Color Completed Flow 06/27/2018 59975 ECHO Transthoracic, Real-Time 2D With Doppler And Color Completed Flow 06/22/2018 76932 Polysomnography Sleep Staging 4+ Parameters W/Cpap Completed 05/28/2018 76408 EKG Tracing & Interpretation Completed 02/22/2018 73304 EKG, Interpretation Only Completed 09/26/2017 89820 Treadmill Interp/Report Only Completed 09/26/2017 44765 Stress Test Supervsn W/Out I/R Completed 09/26/2017 11725 EKG, Interpretation Only Completed 01/17/2017 44611 Anoscopy Completed Encounters Type Date Location Provider Dx Diagnosis Office Visit 07/11/2018 [facility] Linares, G47.33 Obstructive sleep 2:00p [facility] RN, JAVA SWING DEVELOPER-HERIBERTO apnea (adult) Operator [employer] (pediatric) Z68.38 Body mass index (BMI) 38.0-38.9, adult Office Visit 06/13/2018 8:30a [facility] Domi S. E66.01 Morbid ( severe) Raimundo N.P. obesity due to excess calories R07.9 Chest pain, unspecified K80.20 Calculus of gallbladder w/o cholecystitis w/o obstruction I10 Essential (primary) hypertension Z68.38 Body mass index (BMI) 38.0-38.9, adult Office Visit 05/28/2018 3:00p [facility] Perry Jefferson G47.33 Obstructive sleep Elba Swann apnea (adult) (pediatric) E66.01 Morbid (severe) obesity due to excess calories R07.9 Chest pain, unspecified K80.20 Calculus of gallbladder w/o cholecystitis w/o obstruction I10 Essential (primary) hypertension R00.2 Palpitations E87.6 Hypokalemia K21.9 Gastro-esophageal reflux disease without esophagitis Office Visit 04/19/2018 2:30p [facility] Nellie G47.33 Obstructive sleep [facility] Beba apnea (adult) Operator [employer] (pediatric) R53.83 Other fatigue E66.01 Morbid (severe) obesity due to excess calories Z68.41 Body mass index (BMI) 40.0-44.9, adult Office Visit 03/06/2018 11:59a [facility] [place] R07.9 Chest pain, Assoc,pc JARETH Burton unspecified Hospitalists R94.5 Abnormal results of liver function studies K80.20 Calculus of gallbladder w/o cholecystitis w/o obstruction Office Visit 02/21/2018 1:23p [facility] [place] R07.9 Chest pain, Assoc,JARETH Gruber unspecified Hospitalists R06.02 Shortness of breath Office Visit 09/26/2017 1:18p [facility] Charis Wendy, I10 Essential Assoc,pc M.Stefan (primary) Hospitalists hypertension E66.9 Obesity, unspecified R07.9 Chest pain, unspecified Z68.41 Body mass index (BMI) 40.0-44.9, adult Office Visit 09/25/2017 [facility] I10 Essential 1:17p Assoc,pc JARETH Michael (primary) Hospitalists hypertension E66.9 Obesity, unspecified R07.9 Chest pain, unspecified Z68.41 Body mass index (BMI) 40.0-44.9, adult Office Visit 01/17/2017 8:30a Surgical Nomi S. K61.1 Rectal abscess [facility] MD Amy K62.5 Hemorrhage of anus and rectum K64.0 First degree hemorrhoids Office Visit 09/22/2009 1:45a [facility] Wilfrido Maldonado, 786.59 Pain Chest Assoc,pc M.D. Other Hospitalists 780.2 Syncope & Collapse 401.9 Hypertension Unspec 278.00 Obesity Unspec Office Visit 09/21/2009 2:15a [facility] Radhames Ochoa, 786.50 Pain Chest Assoc,pc M.D. Unspec Hospitalists Plan of Treatment Future Appointment(s):10/09/2018 10:30 am - Melida Linares DNP, RN, JAVA SWING DEVELOPER- at [facility]10/15/2018 2:30 pm - Ez Munoz M.D. at [facility]07/18/2018 - Domi Eubanks N.P.G47.33 Obstructive sleep apnea (adult) (pediatric)R00.2 CgsugcqcmvzpK42.9 Chest pain, [id number] Essential (primary) hypertensionFollow up:OV 10/2018 JFMRecommendations:Try taking Hydrochlorathiazide/Spironolactone in the morning. If dizziness when getting out of bed still happens, we could move irbesartan to the morning as well.
--- OUTSIDE RECORDS SUMMARY | 2018-07-29 23:29 | XMS REPORT | Continuity of Care Document ---
:1965 External Reference #:[id number] Author Name Bernice Vidal Care Team Providers Name Role Phone Ana Anaya MD Primary Care Physician Unavailable Payers Type Date Identification Numbers Payment Provider Subscriber Policy Number: [id number] BS Facets Sirathorn Balakula PayID: [id number] [address] [address] [place] [address] Expires: 2018 Policy Number: [id number] BS Facets Sirathorn Balakula PayID: [id number] [address] [address] [place] [address] Advance Directives Description No Information Available Problems Description No Information Family History Date Family Member(s) Problem(s) Comments Father due to MVA () - at 29 y.o. 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 night Elba Swann Aspirin Low Dose 05/27/ Active Tablets 81mg 1 by mouth Unknown Adult 2018 daily Bipap 09/28/ Active Device for use Won 2018 while DWendy Brand, sleeping M.D. Amlodipine / Active Tablets 10mg [...] / Active Capsules 20mg 1 cap by Olimpia [address] mouth daily MD Ana Vitamin E / Active Capsules 400Unit 1 tab by Unknown 0000 mouth daily Bipap 05/27/ Hx Device for use Unknown 2017 - while 05/27/ 2017 Phentermine HCL / Hx Capsules 37.5mg 1 by mouth Unknown 0000 every day Clindamycin HCL / Hx Capsules 300mg 1 tabs by Unknown 0000 mouth 4 times a day Phendimetrazine / Hx Tablets 35mg 1 tablet by Unknown Tartrate 0000 - mouth 3 04/18/ times per 2018 day prior to [facility] for weight loss Aspirin Low Dose / Hx Tablets 81mg Take 1 Unknown 0000 - DR Tablet By 05/15/ Mouth Every 2018 Day Metamucil Free & / Hx Powder 43% 1 Unknown Natural 0000 - tablespoon a day mixed 2018 w/ water Emergen-C Immune / Hx Packet 9.3g Unknown 0000 - 2017 Immunizations Description No Information Available Vital Signs Date Vital Result Comment 06/13/2018 8:33am Height 67 inches 5'7" Weight [...] H/L Range Note Comp Metabolic Panel 05/30/2018 [facility] Sodium 140 mmol/L N 135-[address] [place] [address] [phone] Potassium 4.1 mmol/L N 3.5-5.0 Chloride 101 [...] Egfr 82.3 >60 1 Laboratory test 05/30/2018 [facility] TSH (Thyroid 2.82 mcIU/mL N 0.34-5.[address] [address] [phone] Magnesium 1.9 mg/dL N 1.9-2.7 3 D Dimer Quantitative < 200 ng/mL N Less Than 230 4 Amylase 110 U/L High 29-103 5 GGTP 30 U/L N 9-64.0 6 Total Bilirubin 0.60 mg/dL N 0.2-1.0 Erythrocyte Sed Rate 35 mm/Hr High 0-20 7 CRP High Sensitivity 4.59 mg/L High <2.00 8 Lipid Panel - 05/30/2018 [facility] Creatine Kinase(CK) 100 U/L N 10-223 [address] [place] [address] [phone] Lipid Profile 05/30/2018 [facility] Triglycerides 123 mg/dL 10 (Trig/Chol/HDL [address] ) [place] [address] [phone] Cholesterol 192 mg/dL 11 HDL Cholesterol 48.3 mg/dL 12 LDL Cholesterol 119 mg/dL 13 Laboratory test 05/30/2018 [facility] Hemoglobin A1c 5.0 % N 4.0-5.[address] (Glyco HGB) [place] [address] [phone] 1 Because ethnic data is not always [...] 2 FASTING Copy Result to: ANA ANAYA ([id number]) 3 FASTING Copy Result to: ANA ANAYA ([id number]) 4 Please note: The following may produce a false positive D Dimer test: - Rheumatoid factor greater than 60 IU/ml - Plasma hemoglobin greater than 0.05 gm/dl - Bilirubin greater than 50 mg/dl - Lipids greater than 1000 mg/dl - FDP greater than 20 ug/ml 5 FASTING Copy Result to: ANA ANAYA ([id number]) 6 FASTING Copy Result to: ANA ANAYA ([id number]) 7 FASTING Copy Result to: ANA ANAYA ([id number]) 8 FASTING Copy Result to: ANA ANAYA ([id number]) 9 FASTING Copy Result to: ANA ANAYA ([id number]) 10 Desirable: <150 Borderline High: 150-199 High: 200-499 Very High: >500 11 Desirable: <200 Borderline High: 200-239 High: >239 12 Low: <40 Desirable: 40-60 High: >60 13 Desirable: <100 Near Optimal: 100-129 Borderline High: 130-159 High: 160-189 Very High: >189 14 Therapeutic target for the treatment of diabetes mellitus patients is <7% HBA1C, and in selective patients <6.0%. Please refer to [employer] diabetic care guidelines for further information. Procedures Date Code Description Status 07/02/2018 64948 Holter Monitor Review (24 hr)dr review & interp only Completed 07/02/2018 75109 ECG Monitor/Recording W/Visual Superimposition Scanning Completed 06/27/2018 86324 ECHO Transthoracic, Real-Time 2D With Doppler And Color Completed Flow 06/27/2018 99438 ECHO Transthoracic, Real-Time 2D With Doppler And Color Completed Flow 06/22/2018 61996 Polysomnography Sleep Staging 4+ Parameters W/Cpap Completed 05/28/2018 61629 EKG Tracing & Interpretation Completed 02/22/2018 55762 EKG, Interpretation Only Completed 09/26/2017 77379 Treadmill Interp/Report Only Completed 09/26/2017 60585 Stress Test Supervsn W/Out I/R Completed 09/26/2017 04602 EKG, Interpretation Only Completed 01/17/2017 50945 Anoscopy Completed Encounters Type Date Location Provider Dx Diagnosis Office Visit 06/13/2018 [facility] Domi Eubanks, E66.01 Morbid ( severe) 8:30a N.P. obesity due to excess calories R07.9 Chest pain, unspecified K80.20 Calculus of gallbladder w/o cholecystitis w/o obstruction I10 Essential (primary) hypertension Z68.38 Body mass index (BMI) 38.0-38.9, adult Office Visit 05/28/2018 3:00p [facility] Perry Jefferson G47.33 Obstructive sleep Elba Swann apnea (adult) (pediatric) E66.01 Morbid (severe) obesity due to excess calories R07.9 Chest pain, unspecified K80.20 Calculus of gallbladder w/o cholecystitis w/o obstruction I10 Essential (primary) hypertension R00.2 Palpitations E87.6 Hypokalemia K21.9 Gastro-esophageal reflux disease without esophagitis Office Visit 04/19/2018 2:30p [facility] G47.33 Obstructive sleep [facility] apnea (adult) 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) R53.83 Other fatigue E66.01 Morbid (severe) obesity due to excess calories Z68.41 Body mass index (BMI) 40.0-44.9, adult Office Visit 03/06/2018 11:59a [facility] [place] R07.9 Chest pain, Assoc,pc Josephine PA unspecified Hospitalists R94.5 Abnormal results of liver function studies K80.20 Calculus of gallbladder w/o cholecystitis w/o obstruction Office Visit 02/21/2018 1:23p [facility] [place] R07.9 Chest pain, Assoc,pc Josephine PA unspecified Hospitalists R06.02 Shortness of breath Office Visit 09/26/2017 1:18p [facility] Charis Nguyen, I10 Essential Assocrissa M.D. (primary) Hospitalists hypertension E66.9 Obesity, unspecified R07.9 Chest pain, unspecified Z68.41 Body mass index (BMI) 40.0-44.9, adult Office Visit 09/25/2017 [facility] I10 Essential 1:17p Assoc,JARETH Martins (primary) Hospitalists hypertension E66.9 Obesity, unspecified R07.9 Chest pain, unspecified Z68.41 Body mass index (BMI) 40.0-44.9, adult Office Visit 01/17/2017 8:30a Surgical Nomi Schneider K61.1 Rectal abscess [facility] MD Amy K62.5 Hemorrhage of anus and rectum K64.0 First degree hemorrhoids Office Visit 09/22/2009 1:45a [facility] Wilfrido Maldonado, 786.59 Pain Chest Assoc,rissa Jefferson. Other Hospitalists 780.2 Syncope & Collapse 401.9 Hypertension Unspec 278.00 Obesity Unspec Office Visit 09/21/2009 2:15a [facility] Radhames Ochoa, 786.50 Pain Chest Assoc,rissa Jefferson. Unspec Hospitalists Plan of Treatment Future Appointment(s):07/11/2018 2:00 pm - Melida Linares DNP, RN, MARKETING TRAFFIC COORDINATOR-BC at [facility]10/15/2018 2:30 pm - Ez Munoz M.D. at [facility]06/13/2018 - Domi Eubanks, N.P.E66.01 Morbid (severe) obesity due to excess gjtvttadL64.9 Chest pain, lcglcgywlylC74.20 Calculus of gallbladder without cholecystitis without obstruReferral:Solo John MD, Surgery,[id number] Essential (primary) hypertensionFollow up:4 mo [facility] 1-2 mo Domi BP/ review studies.Recommendations: Decrease Metoprolol to 1/2 tab daily - take at night before bed. Continue to take BP as you are doing Bring in BP cuff to echo appt on 06/23 to have BP checked. Take 650mg of ASA when you have CP I will have surgeons office contact you regarding gallstones.Z68.38 Body mass index (BMI) 38.0-38.9, adult
[2018-07-30] MEDS ORDERED: ALPRAZolam TAB* 0.5 MG PO ONE (00:17)
--- NOTE | 2018-07-30 00:18 | ED ---
Hypertension - HPI Summary HPI Summary: This patient is a 53 year old M presenting to ED with a chief complaint of HTN since evening of 07/29. The patient rates the pain 2/10 in severity. Symptoms aggravated by nothing. Symptoms alleviated by nothing. Patient reports TRIANA and dizziness. Patient takes amlodipine (10 mg) and two other HTN medications. Last took them at 0900, 1500 and 2100. He had a colonoscopy done 3 days ago. - History of Current Complaint Chief Complaint: EDHypertension Stated Complaint: HIGH BLOOD PRESSURE/DIZZINESS Time Seen by Provider: 07/30/18 00:05 Hx Obtained From: Patient Onset/Duration: Started Hours Ago, Still Present Timing: Constant, Lasting Hours Aggravating Factor(s): Nothing Alleviating Factor(s): Nothing Associated Signs & Symptoms: Headaches, Dizziness - Allergies/Home Medications Allergies/Adverse Reactions: Allergies Allergy/AdvReac Type Severity Reaction Status Date / Time lisinopril Allergy Coughing Verified 07/29/18 23:19 phentermine Allergy dizziness, Verified 07/29/18 23:19 dry mouth SEASONAL ENVIRONMENTAL Allergy RUNNY Uncoded 07/29/18 23:19 ALLERGIES NOSE, WATERY EYES, CONGESTION PMH/Surg Hx/FS Hx/Imm Hx Endocrine/Hematology History: Denies: Hx Diabetes Cardiovascular History: Reports: Hx Angina, Hx Hypertension - CONTROL WITH MEDS Denies: Hx Coronary Artery Disease, Hx Myocardial Infarction, Hx Valvular Heart Disease Respiratory History: Reports: Hx Sleep Apnea Denies: Hx Asthma, Hx Chronic Obstructive Pulmonary Disease (COPD) Sensory History: Denies: Hx Contacts or Glasses, Hx Hearing Aid Opthamlomology History: Denies: Hx Contacts or Glasses - Surgical History Surgery Procedure, Year, and Place: 2003 [place] [facility] [place] Anesthesia Reactions: No Infectious Disease History: No Infectious Disease History: Denies: Traveled Outside the [place] in Last 30 Days - Family History Known Family History: Positive: Cardiac Disease - mother had GA, Diabetes Negative: Hypertension - Social History Alcohol Use: None Hx Substance Use: No Substance Use Type: Reports: None Hx Tobacco Use: No Smoking Status (MU): Never Smoked Tobacco Review of Systems Positive: Other - HTN Neurological: Other - dizziness Positive: Headache All Other Systems Reviewed And Are Negative: Yes Physical Exam - Summary Physical Exam Summary: VITAL SIGNS: Reviewed. GENERAL: Patient is a well-developed and nourished MALE who is lying comfortable in the stretcher. Patient is not in any acute respiratory distress. HEAD AND FACE: No signs of trauma. No ecchymosis, hematomas or skull depressions. No sinus tenderness. EYES: PERRLA, EOMI x 2, No injected conjunctiva, no nystagmus. EARS: Hearing grossly intact. Ear canals and tympanic membranes are within normal limits. MOUTH: Oropharynx within normal limits. NECK: Supple, trachea is midline, no adenopathy, no JVD, no carotid bruit, no c- spine tenderness, neck with full ROM. CHEST: Symmetric, no tenderness at palpation LUNGS: Clear to auscultation bilaterally. No wheezing or crackles. CVS: Regular rate and rhythm, S1 and S2 present, no murmurs or gallops appreciated. ABDOMEN: Soft, non-tender. No signs of distention. No rebound no guarding, and no masses palpated. Bowel sounds are normal. EXTREMITIES: FROM in all major joints, no edema, no cyanosis or clubbing. NEURO: Alert and oriented x 3. No acute neurological deficits. Speech is normal and follows commands. SKIN: Dry and warm Triage Information Reviewed: Yes Vital Signs On Initial Exam: Initial Vitals Temp Pulse Resp BP Pulse Ox 99.5 F 94 18 185/111 99 07/29/18 23:16 07/29/18 23:16 07/29/18 23:16 07/29/18 23:16 07/29/18 23:16 Vital Signs Reviewed: Yes Diagnostics - Vital Signs Vital Signs Temp Pulse Resp BP Pulse Ox 07/29/18 23:16 99.5 F 94 18 185/111 99 - Laboratory Result Diagrams: 07/30/18 00:29 07/30/18 00:29 Lab Statement: Any lab studies that have been ordered have been reviewed, and results considered in the medical decision making process. - EKG 2322 Cardiac Rate: NL - 84 BPM EKG Rhythm: Sinus Rhythm Summary of EKG Findings: Q waves in inferior leads Re-Evaluation - Re-Evaluation First Eval Re-Evaluation Time: 01:07 Change: Improved Comment: The patient feels better. Discussed lab results with the patient. Hypertension Course/Dx - Course Assessment/Plan: This patient is a 53 year old M presenting to ED with a chief complaint of HTN since evening of 07/29. Patient reports TRIANA and dizziness. Patient takes amlodipine (10 mg) and two other HTN medications. Last took them at 0900, 1500 and 2100. EKG done at 2322 reveals NSR at 84 BPM and Q waves in inferior leads. This patient feels better in the ED. The patient will be discharged with dx of hypertension. Patient understands and agrees with this plan. - Diagnoses Differential Diagnosis/HQI PQRI: Hypertension Provider Diagnoses: Hypertension Discharge - Sign-Out/Discharge Documenting (check all that apply): Patient Departure - discharge Patient Received Moderate/Deep Sedation with Procedure: No - Discharge Plan Condition: Stable Disposition: HOME Patient Education Materials: Hypertension (ED) Referrals: Marcos Doan MD [Primary Care Provider] - (Follow up in 1-2 days.) Additional Instructions: RETURN TO THE EMERGENCY DEPARTMENT FOR CHANGING OR WORSENING SYMPTOMS. FOLLOW UP WITH PCP IN 1-2 DAYS. - Attestation Statements Document Initiated by Scribe: Yes Documenting Scribe: Cristobal Mayfield Provider For Whom Scribe is Documenting (Include Credential): Faby Nice MD Scribe Attestation: ICristobal, scribed for Faby Nice MD on 07/30/18 at 0108. Status of Scribe Document: Ready
[2018-07-30 00:47] LABS: INR 0.95 (0.77-1.02)
[2018-07-30 00:53] LABS: Albumin 4.4 g/dL (3.2-5.2); Albumin/Globulin Ratio 1.2 (1-3); BUN/Creatinine Ratio 18.5 (8-20); Calcium 9.9 mg/dL (8.6-10.3); EGFR African American 87.2 (>60); EGFR Non-African American 72.1 (>60); Globulin 3.6 g/dL (2-4); Magnesium 1.8 mg/dL (1.9-2.7); Potassium 3.3 mmol/L (3.5-5.0); Total Bilirubin 0.7 mg/dL (0.2-1.0)
[2018-07-30 00:55] LABS: Hematocrit 41 % (42-52); Hemoglobin 13.6 g/dl (14.0-18.0); Mean Corpuscular HGB Conc 33 g/dl (31-36); Mean Corpuscular Hemoglobin 29 pg (27-31); Mean Corpuscular Volume 88 fL (80-94); Mean Platelet Volume 8.7 fL (7.4-10.4); Platelet Count 226 10^3/ul (150-450); Red Blood Count 4.65 10^6/ul (4.00-5.40); Red Cell Distribution Width 15 % (10.5-15); White Blood Count 6.4 10^3/ul (3.5-10.8)
[2018-07-30] MEDS ORDERED: Potassium Chlor TAB* 20 MEQ TAB.ER PO ONE (00:56)
[2018-07-30 01:16] VITALS: BP 95/66
[2018-07-30 01:18] LABS: ABS Basophils 0 10^3/ul (0-0.2); ABS Eosinophils 0.1 10^3/ul (0-0.6); ABS Monocytes 0.5 10^3/ul (0-0.8); ABS Neutrophils 4.8 10^3/ul (1.5-7.7); ABS Nucleated RBC 0 10^3/ul; Eosinophil % 1.8 %; Lymphocyte % 15.6 %; Nucleated Red Blood Cells % 0
== END 2018-07-30 01:14 | disposition home or self-care (01) ==
LOC: ED 23:12
DX: I10 Essential (primary) hypertension (principal); R51 Headache; R42 Dizziness and giddiness; Z88.8 Allergy status to other drugs, medicaments and biological substances; Z91.048 Other nonmedicinal substance allergy status; Z82.49 Family history of ischemic heart disease and other diseases of the circulatory system; Z83.3 Family history of diabetes mellitus
CPT/HCPCS: 36415; 80053; 83735; 84484; 85025; 85610; 85730; 93005; 99282; A9270-GY

== ENCOUNTER 2018-08-31 20:09 | Inpatient (IN) | payer BC ==
[2018-08-31] MEDS ORDERED: Aspirin 81 mg CHEW TAB* 81 MG TAB.CHEW PO ONE (20:36)
[2018-08-31] MEDS ORDERED: Metoprolol Tartrate IV* 1 MG/ML 5 ML VIAL IV ONE (20:36)
--- NOTE | 2018-08-31 20:36 | ED ---
HPI Chest Pain - HPI Summary HPI Summary: Pt is a 53 y/o male who presents to the ED c/o CP. At 19:45 he began to have mid -sternal CP that radiates to his neck. Pt states he was sitting down at the time of onset. The pain is constant and is rated a 6/10 in severity. Pt describes the pain as a dull pressure. He had palpitations initially which have now resolved. Pt also c/o left flank pain but denies any cough or LE edema. He has a hx of angina and has a stress test scheduled on 09/13/[address] Swann. 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 He was having CP earlier this week after exercising. PMHx HTN. FHx UT in mother. He denies smoking. - History of Current Complaint Chief Complaint: EDChestPainROMI Time Seen by Provider: 08/31/18 20:32 Hx Obtained From: Patient Onset/Duration: Started Hours Ago - 19:45 today, Still Present Timing: Constant Current Severity: Moderate Pain Intensity: 6 Pain Scale Used: 0-10 Numeric Chest Pain Location: Mid Sternal Chest Pain Radiates: Yes Chest Pain Radiates To:: Neck Character: Dull/Aching, Pressure/Squeezing Aggravating Factor(s): Exertion Alleviating Factor(s): Nothing Associated Signs and Symptoms: Positive: Chest Pain. Negative: Cough, Edema Related History: Similar Episode/Dx as: - angina, Obesity - Additional Pertinent History Primary Care Physician: [id number] - Allergy/Home Medications Allergies/Adverse Reactions: Allergies Allergy/AdvReac Type Severity Reaction Status Date / Time lisinopril Allergy Coughing Verified 08/31/18 20:19 phentermine Allergy dizziness, Verified 08/31/18 20:19 dry mouth SEASONAL ENVIRONMENTAL Allergy RUNNY Uncoded 08/31/18 20:19 ALLERGIES NOSE, WATERY EYES, CONGESTION PMH/Surg Hx/FS Hx/Imm Hx Endocrine/Hematology History: Denies: Hx Diabetes Cardiovascular History: Reports: Hx Angina, Hx Hypertension - CONTROL WITH MEDS Denies: Hx Coronary Artery Disease, Hx Hypercholesterolemia, Hx Myocardial Infarction, Hx Valvular Heart Disease Respiratory History: Reports: Hx Sleep Apnea Denies: Hx Asthma, Hx Chronic Obstructive Pulmonary Disease (COPD) Sensory History: Denies: Hx Contacts or Glasses, Hx Hearing Aid Opthamlomology History: Denies: Hx Contacts or Glasses - Surgical History Surgery Procedure, Year, and Place: 2002 REMOVAL OF RIGHT FLANK MASS, [facility] Hx Anesthesia Reactions: No Infectious Disease History: No Infectious Disease History: Denies: Traveled Outside the [place] in Last 30 Days - Family History Known Family History: Positive: Cardiac Disease - mother had UT, Diabetes Negative: Hypertension - Social History Alcohol Use: None Hx Substance Use: No Substance Use Type: Reports: None Hx Tobacco Use: No Smoking Status (MU): Never Smoked Tobacco Review of Systems Positive: Palpitations - resolved, Chest Pain Negative: Cough Positive: Abdominal Pain - left flank Negative: Edema - LE All Other Systems Reviewed And Are Negative: Yes Physical Exam - Summary Physical Exam Summary: Appearance: well appearing, no pain distress, obese Skin: warm, dry, reflects adequate perfusion Head/face: normal Eyes: EOMI, BALDEMAR ENT: mucous membranes moist Neck: supple, non-tender Respiratory: CTA, breath sounds present Cardiovascular: tachycardic but regular rhythm, pulses symmetrical Abdomen: non-tender, soft, no CVA tenderness Bowel Sounds: present Musculoskeletal: normal, strength/ROM intact Neuro: normal, sensory motor intact, A&Ox3 Triage Information Reviewed: Yes Vital Signs On Initial Exam: Initial Vitals Temp Pulse Resp BP Pulse Ox 99.9 F 101 18 155/97 95 08/31/18 20:18 08/31/18 20:18 08/31/18 20:18 08/31/18 20:18 08/31/18 20:18 Vital Signs Reviewed: Yes Diagnostics - Vital Signs Vital Signs Temp Pulse Resp BP Pulse Ox 08/31/18 20:18 99.9 F 101 18 155/97 95 - Laboratory Result Diagrams: 08/31/18 20:49 08/31/18 20:49 Lab Statement: Any lab studies that have been ordered have been reviewed, and results considered in the medical decision making process. - Radiology CXR Radiology Interpretation Completed By: ED Physician Summary of Radiographic Findings: No acute findings. Pending official radiology report. - EKG 20:15 Cardiac Rate: NL - 94 bpm EKG Rhythm: Sinus Rhythm ST Segment: Normal Summary of EKG Findings: Nl axis, nl intervals Re-Evaluation - Re-Evaluation First Eval Re-Evaluation Time: 21:28 Change: Improved Comment: Pt feels better. His HR is now 65 bpm. Chest Pain Course/Dx - Course Course Of Treatment: Nurse's notes reviewed. Patient with chest pain and heart score of 4. Initial EKG, troponin is negative. Previous EKG did have some changes from July. He is pending outpatient stress test. Following beta gilmar and aspirin here he is feeling better. He did have nitroglycerin at home which did not improve his symptoms. Admit for further. - Chest Pain Differential Diagnosis/HQI/PQRI: Acute UT, ACS, Angina, CHF, Chest Wall, GI Disease, Pulmonary Embolism - Diagnoses Provider Diagnoses: Obesity, Chest pain, Acute coronary syndrome, Renal insufficiency - Provider Notifications Discussed Care Of Patient With: Sujatha Muniz Time Discussed With Above Provider: 21:30 Instructed by Provider To: Admit As Inpatient Discharge - Sign-Out/Discharge Documenting (check all that apply): Patient Departure - Admit Patient Received Moderate/Deep Sedation with Procedure: No - Discharge Plan Condition: Fair Disposition: ADMITTED TO [facility] - Billing Disposition and Condition Condition: FAIR Disposition: Admitted to [facility] - Attestation Statements Document Initiated by Scribe: Yes Documenting Scribe: Ayala Solorzano Provider For Whom Scribe is Documenting (Include Credential): Taiwo Story MD Scribe Attestation: IAyala, scribed for Taiwo Story MD on 09/01/18 at 0027. Scribe Documentation Reviewed: Yes Provider Attestation: The documentation as recorded by the Ayala bernstein accurately reflects the service I personally performed and the decisions made by , Taiwo Story MD Status of Scribe Document: Viewed
[2018-08-31] MEDS ORDERED: NS 0.9% 1000 ML** 1,000 ML IV ONE (20:38)
[2018-08-31 21:06] LABS: ABS Basophils 0 10^3/ul (0-0.2); ABS Eosinophils 0.1 10^3/ul (0-0.6); ABS Lymphocytes 1.1 10^3/ul (1.0-4.8); ABS Monocytes 0.5 10^3/ul (0-0.8); ABS Neutrophils 4.7 10^3/ul (1.5-7.7); ABS Nucleated RBC 0 10^3/ul; Eosinophil % 1.8 %; Hematocrit 43 % (36-46); Hemoglobin 14.1 g/dL (14.0-18.0); Lymphocyte % 17.5 %; Mean Corpuscular HGB Conc 33 g/dL (31-36); Mean Corpuscular Hemoglobin 29 pg (27-31); Mean Corpuscular Volume 89 fL (80-94); Mean Platelet Volume 8.6 fL (7.4-10.4); Nucleated Red Blood Cells % 0; Platelet Count 241 10^3/uL (150-450); Red Blood Count 4.81 10^6 /uL (4.18-5.48); Red Cell Distribution Width 14 % (10.5-15); White Blood Count 6.5 10^3/uL (3.5-10.8)
[2018-08-31 21:14] LABS: INR 0.92 (0.77-1.02)
--- OUTSIDE RECORDS SUMMARY | 2018-08-31 21:14 | XMS REPORT | Continuity of Care Document ---
:1965 External Reference #:[id number] Author Name Nga Tran Care Team Providers Name Role Phone Ana Anaya MD Primary Care Physician Unavailable Payers Date Identification Numbers Payment Provider Subscriber Policy Number: [id number] BS Facets Sirathorn Balakula PayID: [id number] [address] [address] [place] [address] Expires: 2018 Policy Number: [id number] BS Facets Sirathorn Balakula PayID: [id number] [place] [address] Advance Directives Description No Information Available Problems Description No Information Family History Date Family Member(s) Observation Comments Father due to MVA () - at 29 y.o. 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 00 Sub s tablet Foster, under the N.P. tongue as needed for chest pain, may repeat Omeprazole Active Capsules 20mg 1 cap by Olimpia, 00 DR vale Rodríguez MD daily Vitamin E Active Capsules 400Unit 1 [...] 04/18/20 times per 18 day prior to [facility] Aspirin Low Dose [...] H/L Range Note Comp Metabolic Panel 05/30/2018 [facility] Sodium 140 mmol/L N 135-[address] [place] [address] [phone] Potassium 4.1 mmol/L N 3.5-5.0 Chloride 101 [...] Egfr 82.3 >60 1 Laboratory test 05/30/2018 [facility] TSH (Thyroid 2.82 mcIU/mL N 0.34-5.[address] Stim Horm) [place] [address] [phone] Magnesium 1.9 mg/dL N 1.9-2.7 3 D Dimer Quantitative < 200 ng/mL N Less Than 230 4 Amylase 110 U/L High 29-103 5 GGTP 30 U/L N 9-64.0 6 Total Bilirubin 0.60 mg/dL N 0.2-1.0 Erythrocyte Sed Rate 35 mm/Hr High 0-20 7 CRP High Sensitivity 4.59 mg/L High <2.00 8 Lipid Panel - 05/30/2018 [facility] Creatine Kinase(CK) 100 U/L N 10-[address] [place] [address] [phone] Lipid Profile 05/30/2018 [facility] Triglycerides 123 mg/dL 10 (Trig/Chol/HDL [address] ) [place] [address] [phone] Cholesterol 192 mg/dL 11 HDL Cholesterol 48.3 mg/dL 12 LDL Cholesterol 119 mg/dL 13 Laboratory test 05/30/2018 [facility] Hemoglobin A1c 5.0 % N 4.0-5.6 [address] (Glyco HGB) [place] [address] [phone] 1 Because ethnic data is not always [...] 2 FASTING Copy Result to: ANA ANAYA ([id number]) 3 FASTING Copy Result to: ANA ANAYA ([id number]) 4 Please note: The following may produce a false positive D Dimer test: - Rheumatoid factor greater than 60 IU/ml - Plasma hemoglobin greater than 0.05 gm/dl - Bilirubin greater than 50 mg/dl - Lipids greater than 1000 mg/dl - FDP greater than 20 ug/ml 5 FASTING Copy Result to: ANA ANAYA ([id number]) 6 FASTING Copy Result to: ANA ANAYA ([id number]) 7 FASTING Copy Result to: ANA ANAYA ([id number]) 8 FASTING Copy Result to: ANA ANAYA ([id number]) 9 FASTING Copy Result to: ANA ANAYA ([id number]) 10 Desirable: <150 Borderline High: 150-199 High: 200-499 Very High: >500 11 Desirable: <200 Borderline High: 200-239 High: >239 12 Low: <40 Desirable: 40-60 High: >60 13 Desirable: <100 Near Optimal: 100-129 Borderline High: 130-159 High: 160-189 Very High: >189 14 Therapeutic target for the treatment of diabetes mellitus patients is <7% HBA1C, and in selective patients <6.0%. Please refer to [place] [employer] diabetic care guidelines for further information. Procedures Date Code Description Status 07/07/2018 61384 Holter Monitor Review (24 hr)dr carrizales & interp only Completed 07/02/2018 59710 ECG Monitor/Recording W/Visual Superimposition Scanning Completed 07/02/2018 41684 ECG Monitor/Recording W/Visual Superimposition Scanning Completed 06/27/2018 41702 ECHO Transthoracic, Real-Time 2D With Doppler And Color Completed Flow 06/27/2018 82911 ECHO Transthoracic, Real-Time 2D With Doppler And Color Completed Flow 06/22/2018 04441 Polysomnography Sleep Staging 4+ Parameters W/Cpap Completed 05/28/2018 41196 EKG Tracing & Interpretation Completed 02/22/2018 51348 EKG, Interpretation Only Completed 09/26/2017 17521 Treadmill Interp/Report Only Completed 09/26/2017 37341 Stress Test Supervsn W/Out I/R Completed 09/26/2017 42313 EKG, Interpretation Only Completed 01/17/2017 48257 Anoscopy Completed Encounters Type Date Location Provider Dx Diagnosis Office Visit 07/18/2018 [facility] Domi Eubanks G47.33 Obstructive sleep 9:30a N.P. 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 obesity due to excess calories R07.9 Chest pain, unspecified K80.20 Calculus of gallbladder w/o cholecystitis w/o obstruction I10 Essential (primary) hypertension Z68.38 Body mass index (BMI) 38.0-38.9, adult Office Visit 05/28/2018 3:00p [facility] Perry Jefferson G47.33 Obstructive sleep Li Swann. apnea (adult) (pediatric) E66.01 Morbid (severe) obesity due to excess calories R07.9 Chest pain, unspecified K80.20 Calculus of gallbladder w/o cholecystitis w/o obstruction I10 Essential (primary) hypertension R00.2 Palpitations E87.6 Hypokalemia K21.9 Gastro-esophageal reflux disease without esophagitis Office Visit 04/19/2018 2:30p [facility] G47.33 Obstructive sleep [facility] MD Beba apnea (adult) [facility] (pediatric) R53.83 Other fatigue E66.01 Morbid (severe) obesity due to excess calories Z68.41 Body mass index (BMI) 40.0-44.9, adult Office Visit 03/06/2018 11:59a [facility] [place] R07.9 Chest pain, Assoc,pc JARETH Burton unspecified Hospitalists R94.5 Abnormal results of liver function studies K80.20 Calculus of gallbladder w/o cholecystitis w/o obstruction Office Visit 02/21/2018 1:23p [facility] [place] R07.9 Chest pain, Assoc,JARETH Gruber unspecified Hospitalists R06.02 Shortness of breath Office Visit 09/26/2017 1:18p [facility] Charis Wendy, I10 Essential Assoc,rissa Arreola (primary) Hospitalists hypertension E66.9 Obesity, unspecified R07.9 Chest pain, unspecified Z68.41 Body mass index (BMI) 40.0-44.9, adult Office Visit 09/25/2017 [facility] [place] I10 Essential 1:17p Assoc,JARETH Martins (primary) Hospitalists hypertension E66.9 Obesity, unspecified R07.9 Chest pain, unspecified Z68.41 Body mass index (BMI) 40.0-44.9, adult Office Visit 01/17/2017 8:30a Surgical Nomi S. K61.1 Rectal abscess [facility] MD Amy K62.5 Hemorrhage of anus and rectum K64.0 First degree hemorrhoids Office Visit 09/22/2009 1:45a [facility] Wilfrido Maldonado, 786.59 Pain Chest Assoc,pc M.DWendy Other Hospitalists 780.2 Syncope & Collapse 401.9 Hypertension Unspec 278.00 Obesity Unspec Office Visit 09/21/2009 2:15a [facility] Radhames Ochoa, 786.50 Pain Chest Assoc,pc M.D. Unspec Hospitalists Plan of Treatment Future Appointment(s):10/09/2018 10:30 am - Melida Linares DNP, RN, CAKE PRESS OPERATOR-BC at [facility]10/15/2018 2:30 pm - Ez Munoz M.D. at [facility]07/18/2018 - Domi Eubanks N.P.G47.33 Obstructive sleep apnea (adult) (pediatric)R00.2 AohbtaymycuhT62.9 Chest pain, [id number] Essential (primary) hypertensionFollow up:10/2018 JFMRecommendations:Try taking Hydrochlorothiazide/Spironolactone in the morning. If dizziness when getting out of bed still happens, we could move irbesartan to the morning as well.
--- OUTSIDE RECORDS SUMMARY | 2018-08-31 21:14 | XMS REPORT | Continuity of Care Document ---
:1965 External Reference #:[id number] Author Name Florecita Wesley Care Team Providers Name Role Phone Ana Anaya MD Primary Care Physician Unavailable Payers Date Identification Numbers Payment Provider Subscriber Policy Number: [id number] BS Facets Sirathorn Balakula PayID: [id number] [address] [address] [place] [address] Expires: 2018 Policy Number: [id number] BS Facets Sirathorn Balakula PayID: [id number] [address] [address] [place] [address] Advance Directives Description No Information Available Problems Description No Information Family History Date Family Member(s) Observation Comments Father due to MVA () - at 29 y.o. 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 Chloride ER 19 ER s every day Denisse Eubanks Metamucil 05/28/20 Active 1 tsp by Perry 18 mouth F. daily Mauser, mixed with M.D. water or juice Bipap 09/29/19 Active Device for use Won 18 while DWendy Brand, sleeping M.D. Amlodipine Active Tablets 10mg 1 by mouth Unknown Besylate 00 every day Vitamin C Active Chewtabs 125mg 1 by mouth Unknown 00 every day Spironolactone/H Active Tablets 25-25mg Take 1 Unknown ydrochlorothiazi 00 Tablet By de Mouth Every Day For Blood Pressure Nitrostat Active Tablets 0.4mg 25tab place one Domi S. 00 Sub s tablet Raimundo, under the N.P. tongue as needed for chest pain, may repeat Omeprazole Active Capsules 20mg 1 cap by Olimpia 00 [address] vale Rodríguez MD daily Vitamin E Active Capsules 400Unit 1 tab by Unknown 00 mouth daily Irbesartan Active Tablets 75mg Take 1 Unknown 00 Tablet By Mouth Every Day For High Blood Pressure Metoprolol 05/28/20 Hx Tablets 25mg 30tab 1/2 tab by I10 Perry Succinate ER 18 - ER 24HR s mouth at F. 07/10/19 night Mauser, 19 M.D. Aspirin Low Dose 05/27/20 Hx Tablets 81mg 1 by mouth Unknown Adult 18 - daily 08/31/19 19 Bipap 05/27/20 Hx Device for use Unknown [...] 04/18/20 times per 18 day prior to [facility] Aspirin Low Dose Hx Tablets 81mg Take 1 Unknown 00 - DR Tablet By 05/15/20 Mouth 18 Every Day Metamucil Free & Hx Powder 43% 1 Unknown Natural 00 - tablespoon 05/16/20 a day 18 mixed w/ water Emergen-C Immune Hx Packet 9.3g Unknown 00 - 05/16/20 18 Immunizations Description No Information Available Vital Signs Date Vital Result Comment 08/30/2018 10:53am Height 67 inches 5'7" Weight 246.00 lb without shoes Heart Rate 68 /min regular BP Systolic Sitting 140 mmHg ule lg cuff BP Diastolic Sitting 82 mmHg ule lg cuff BP Systolic Standing 128 mmHg ule lg cuff BP Diastolic Standing 78 mmHg ule lg cuff BMI (Body Mass Index) 38.5 kg/m2 Ejection Fraction 55-60% 06/27/18 echo 07/18/2018 9:24am Height 67 inches 5'7" Weight [...] H/L Range Note Comp Metabolic Panel 05/30/2018 [facility] Sodium 140 mmol/L N 135-[address] [place] [address] [phone] Potassium 4.1 mmol/L N 3.5-5.0 Chloride 101 [...] Egfr 82.3 >60 1 Laboratory test 05/30/2018 [facility] TSH (Thyroid 2.82 mcIU/mL N 0.34-5.60 [address] Stim Horm) [place] [address] [phone] Magnesium 1.9 mg/dL N 1.9-2.7 3 D Dimer Quantitative < 200 ng/mL N Less Than 230 4 Amylase 110 U/L High 29-103 5 GGTP 30 U/L N 9-64.0 6 Total Bilirubin 0.60 mg/dL N 0.2-1.0 Erythrocyte Sed Rate 35 mm/Hr High 0-20 7 CRP High Sensitivity 4.59 mg/L High <2.00 8 Lipid Panel - 05/30/2018 [facility] Creatine Kinase(CK) 100 U/L N 10-223 [address] [place] [address] [phone] Lipid Profile 05/30/2018 [facility] Triglycerides 123 mg/dL 10 (Trig/Chol/HDL [address] ) [place] [address] [phone] Cholesterol 192 mg/dL 11 HDL Cholesterol 48.3 mg/dL 12 LDL Cholesterol 119 mg/dL 13 Laboratory test 05/30/2018 [facility] Hemoglobin A1c 5.0 % N 4.0-5.6 [address] (Glyco HGB) [place] [address] [phone] 1 Because ethnic data is not always [...] 2 FASTING Copy Result to: ANA ANAYA ([id number]) 3 FASTING Copy Result to: ANA ANAYA ([id number]) 4 Please note: The following may produce a false positive D Dimer test: - Rheumatoid factor greater than 60 IU/ml - Plasma hemoglobin greater than 0.05 gm/dl - Bilirubin greater than 50 mg/dl - Lipids greater than 1000 mg/dl - FDP greater than 20 ug/ml 5 FASTING Copy Result to: ANA ANAYA ([id number]) 6 FASTING Copy Result to: ANA ANAYA ([id number]) 7 FASTING Copy Result to: ANA ANAYA ([id number]) 8 FASTING Copy Result to: ANA ANAYA ([id number]) 9 FASTING Copy Result to: ANA ANAYA ([id number]) 10 Desirable: <150 Borderline High: 150-199 High: 200-499 Very High: >500 11 Desirable: <200 Borderline High: 200-239 High: >239 12 Low: <40 Desirable: 40-60 High: >60 13 Desirable: <100 Near Optimal: 100-129 Borderline High: 130-159 High: 160-189 Very High: >189 14 Therapeutic target for the treatment of diabetes mellitus patients is <7% HBA1C, and in selective patients <6.0%. Please refer to [place] [employer] diabetic care guidelines for further information. Procedures Date Code Description Status 08/30/2018 04213 EKG Tracing & Interpretation Completed 07/07/2018 73190 Holter Monitor Review (24 hr)dr review & interp only Completed 07/02/2018 41840 ECG Monitor/Recording W/Visual Superimposition Scanning Completed 07/02/2018 15071 ECG Monitor/Recording W/Visual Superimposition Scanning Completed 06/27/2018 31479 ECHO Transthoracic, Real-Time 2D With Doppler And Color Completed Flow 06/27/2018 75333 ECHO Transthoracic, Real-Time 2D With Doppler And Color Completed Flow 06/22/2018 00569 Polysomnography Sleep Staging 4+ Parameters W/Cpap Completed 05/28/2018 16500 EKG Tracing & Interpretation Completed 02/22/2018 13699 EKG, Interpretation Only Completed 09/26/2017 82545 Treadmill Interp/Report Only Completed 09/26/2017 60272 Stress Test Supervsn W/Out I/R Completed 09/26/2017 91803 EKG, Interpretation Only Completed 01/17/2017 10118 Anoscopy Completed Encounters Type Date Location Provider Dx Diagnosis Office Visit 07/18/2018 [facility] Domi Eubanks, G47.33 Obstructive sleep 9:30a N.P. apnea (adult) (pediatric) R00.2 Palpitations R07.9 Chest pain, unspecified I10 Essential (primary) hypertension Office Visit 07/11/2018 [facility] G47.33 Obstructive sleep 2:00p [facility], FLAVIO, apnea (adult) [facility] (pediatric) Z68.38 Body mass index (BMI) 38.0-38.9, adult Office Visit 06/13/2018 8:30a [place] [facility] Domi Schneider E66.01 Morbid ( severe) Raimundo N.PWendy obesity due to excess calories R07.9 Chest pain, unspecified K80.20 Calculus of gallbladder w/o cholecystitis w/o obstruction I10 Essential (primary) hypertension Z68.38 Body mass index (BMI) 38.0-38.9, adult Office Visit 05/28/2018 3:00p [place] [facility] Perry Jefferson G47.33 Obstructive sleep Elba Swann apnea (adult) (pediatric) E66.01 Morbid (severe) obesity due to excess calories R07.9 Chest pain, unspecified K80.20 Calculus of gallbladder w/o cholecystitis w/o obstruction I10 Essential (primary) hypertension R00.2 Palpitations E87.6 Hypokalemia K21.9 Gastro-esophageal reflux disease without esophagitis Office Visit 04/19/2018 2:30p [facility] G47.33 Obstructive sleep [facility] MD Beba apnea (adult) [facility] (pediatric) R53.83 Other fatigue E66.01 Morbid (severe) obesity due to excess calories Z68.41 Body mass index (BMI) 40.0-44.9, adult Office Visit 03/06/2018 11:59a [facility] [place] R07.9 Chest pain, Assoc,pc JARETH Burton unspecified Hospitalists R94.5 Abnormal results of liver function studies K80.20 Calculus of gallbladder w/o cholecystitis w/o obstruction Office Visit 02/21/2018 1:23p [facility] [place] R07.9 Chest pain, Assoc,pc Josephine PA unspecified Hospitalists R06.02 Shortness of breath Office Visit 09/26/2017 1:18p [facility] Charis Nguyen, I10 Essential Assocrissa M.D. (primary) Hospitalists hypertension E66.9 Obesity, unspecified R07.9 Chest pain, unspecified Z68.41 Body mass index (BMI) 40.0-44.9, adult Office Visit 09/25/2017 [facility] I10 Essential 1:17p Assoc,pc JARETH Michael (primary) Hospitalists hypertension E66.9 Obesity, unspecified R07.9 Chest pain, unspecified Z68.41 Body mass index (BMI) 40.0-44.9, adult Office Visit 01/17/2017 8:30a Surgical Nomi Schneider K61.1 Rectal abscess [facility] MD Amy K62.5 Hemorrhage of anus and rectum K64.0 First degree hemorrhoids Office Visit 09/22/2009 1:45a [facility] Wilfrido Maldonado, 786.59 Pain Chest Assoc,rissa Arreola Other Hospitalists 780.2 Syncope & Collapse 401.9 Hypertension Unspec 278.00 Obesity Unspec Office Visit 09/21/2009 2:15a [facility] Radhames Ochoa, 786.50 Pain Chest Assoc,rissa Arreola Unspec Hospitalists Plan of Treatment Future Appointment(s):09/06/2018 1:45 pm - Ica Nuclear Schedule at [facility]09/05/2018 11:00 am - Chao Michel, DO FACC at [facility]09/04/2018 10:00 am - Solo John M.D. at [facility]10/09/2018 10:30 am - Melida Linares DNP, RN, REGULATORY SUBMISSIONS ASSOCIATE-BC at [facility]10/15/2018 2:30 pm - Ez Munoz M.D. at [facility]08/30/2018 - Domi Eubanks N.P.G47.33 Obstructive sleep apnea (adult) (pediatric)R00.2 PalpitationsNew Medication:Potassium Chloride ER 20 Meq - 1 by mouth every dayFollow up:OV Mauser after testing (can move up October)R07.9 Chest pain, unspecifiedNew Orders :Stress Test, Exercise Nuclear, Scheduled: 09/05/18I10 Essential (primary) xfikbdadiulrC10.38 Body mass index (BMI) 38.0-38.9, adult
[2018-08-31 21:23] LABS: Albumin 4.6 g/dL (3.2-5.2); Albumin/Globulin Ratio 1.3 (1-3); BUN/Creatinine Ratio 16.8 (8-20); Calcium 9.6 mg/dL (8.6-10.3); EGFR African American 66.3 (>60); EGFR Non-African American 54.8 (>60); Globulin 3.6 g/dL (2-4); Total Bilirubin 0.5 mg/dL (0.2-1.0); Total Protein 8.2 g/dL (6.4-8.9)
[2018-08-31 21:37] LABS: TSH (Thyroid Stimulating Horm) 2.7 mcIU/mL (0.34-5.60)
[2018-08-31 21:54] LABS: Magnesium 2.1 mg/dL (1.9-2.7)
[2018-08-31] MEDS ORDERED: Al Hydrox/Mg Hydrox/Simet LIQ* 30 ML UDC PO PRN (22:00)
[2018-08-31] MEDS ORDERED: Acetaminophen TAB* 325 MG PO PRN (22:00)
[2018-08-31] MEDS ORDERED: Ondansetron INJ* 2 MG/ML VIAL IV PRN (22:00)
[2018-08-31 22:23] LABS: Potassium 4.3 mmol/L (3.5-5.0)
[2018-08-31] MEDS ORDERED: Metoprolol Tartrate TAB* 25 MG PO SCH (23:00)
--- NOTE | 2018-08-31 23:32 | HP ---
CC: Dr. Marcos Doan; Dr. Perry Swann * HISTORY AND PHYSICAL: DATE OF ADMISSION: 08/31/18. TIME OF EVALUATION: 2199. PRIMARY CARE PHYSICIAN: Dr. Marcos Doan. CHIEF COMPLAINT: Chest pain. HISTORY OF PRESENT ILLNESS: This is a 53-year-old male with a past medical history of hypertension and episodes of chest pain, who presents to the emergency room with acute onset of chest pain. The patient states around 6 p.m. this evening, he was sitting and developed substernal chest pain radiating up to his throat. He had associated shortness of breath, diaphoresis. No nausea. He had not had his dinner yet. This lasted about 25 minutes. Nothing relieved the symptoms and nothing alleviated them. He is now pain free. He states last week he had four episodes of exertional chest pain with exercise and he called Dr. Swann's office who he has seen in the past for chest pain and he set him up for an exercise chemical stress test on 09/13/18. He had a similar presentation last year when he was admitted and was ruled out for acute coronary syndrome at that time. He did notice the increase in burping, no increase in exertional activity recently. The patient states he has some intentional weight loss about 10 to 15 pounds. No lower extremity swelling. No recent changes in his medications. Denies having any recent URI illness or fever. He does have some right ear ringing. Otherwise, review of systems is negative. In the emergency room, the patient had labs and imaging. He was given a full aspirin, Lopressor 5 mg, and a liter of fluid and referred to the hospitalist service for further evaluation. PAST MEDICAL HISTORY: 1. Obstructive sleep apnea, on BiPAP. 2. GERD. 3. Hypertension. 4. History of chest pain. MEDICATIONS: 1. Amlodipine 10 mg p.o. daily. 2. Spironolactone-hydrochlorothiazide 1 tab daily. 3. Omeprazole 20 mg daily. 4. Irbesartan 75 mg daily. 5. Aspirin 81 mg daily. 6. Vitamin E 400 units daily. 7. Vitamin C 500 mg daily. 8. Psyllium husk one teaspoon daily. 9. Aspirin 650 mg for chest pain as needed. 10. Nitro 0.4 mg as needed. ALLERGIES: LISINOPRIL coughing, PHENTERMINE dizziness and dry mouth. Seasonal and environmental allergies. FAMILY HISTORY: Mother at age 73 from an [address]. Father from MVA at age 29. SOCIAL HISTORY: The patient lives at home with his and two children. His is his healthcare proxy. 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 No history of tobacco, alcohol or illicit drug use. Code status is full code. REVIEW OF SYSTEMS: A 14-point review of systems as mentioned in the HPI, otherwise negative. PHYSICAL EXAMINATION GENERAL: In no acute distress, resting comfortably. VITAL SIGNS: Temp 99.9, pulse rate 92, respiratory rate 17, oxygen saturation 95 % on room air, blood pressure 114/83. HEENT: Head: Normocephalic. Pupils equal and reactive. Oropharynx: Mucous membranes moist. Ears: TMs are normal bilaterally. External canals also normal bilaterally. No fluid or cerumen impaction. NECK: Supple. No lymphadenopathy. CARDIAC: Regular rate and rhythm. Soft systolic murmur heard throughout. No carotid bruits. RESPIRATORY: Clear to auscultation. No wheezes, rhonchi, or rales. ABDOMEN: Soft, nontender, and nondistended. EXTREMITIES: No clubbing, cyanosis, or edema. +1 DPs. NEUROLOGIC: Alert and oriented x3. No gross focal neurologic deficits. DIAGNOSTIC STUDIES/LAB DATA: White count 6.5, hemoglobin 14.1, hematocrit 43, platelets 241,000. INR 0.92. D-dimer less than 200. Sodium 134, potassium is pending, chloride 99, bicarb 27, BUN 23, creatinine 1.37. Glucose 112. Mag 2.1. Troponin is 0. TSH is 2.7. Radiographic data shows normal sinus rhythm with no significant changes. Chest x-ray is negative, no acute cardiopulmonary disease. ASSESSMENT: This is a 53-year-old male with a past medical history of hypertension, who presents to the emergency room with recurrent episodes of chest pain. Chest pain. Assessment: Atypical chest pain; however, his symptoms are concerning as well as his exertional chest pain that he developed last week. His initial workup was unremarkable, but reasonable to admit him to rule out acute coronary syndrome. He states he was scheduled to have an exercise nuclear stress test on 09/13/18. Plan: We will admit him to telemetry. Continue to trend his troponin, check a lipid panel in the morning. Continue him on baby aspirin. We will keep him n.p.o. after midnight for a chemical nuclear exercise stress test. CHRONIC MEDICAL PROBLEMS: 1. Acute kidney injury. The patient has had a bump in his creatinine from a month ago. It is unclear the etiology. We will obtain a FeNa. We will hold his spironolactone-hydrochlorothiazide and irbesartan and repeat his labs in the morning. Actually, we will start him on low-dose metoprolol for his hypertension in the setting of concern for coronary artery disease. 2. Hypertension. Assessment: Elevated. He is on several medications, but as mentioned, we are holding some for his worsening renal function. We will start him on metoprolol in addition to the amlodipine. 3. Obstructive sleep apnea. Resume his BiPAP. 4. Gastroesophageal reflux disease. Start him on pantoprazole in place of omeprazole. 5. FEN. Regular diet and n.p.o. after midnight. 6. DVT prophylaxis. The patient scores moderate risk. We will place him on heparin subcu t.i.d. 7. Code status. Full code. TIME SPENT: Greater than 30 minutes were spent doing the history and physical, more than half the time spent in direct patient contact. [id number]/CPS #: [id number] ANGEL
[2018-08-31 23:42] LABS: Urine Creatinine Concentration 60.97 mg/dL
[2018-09-01] MEDS: Heparin VIAL(*) 5000 UNITS/ML VIAL (FIVE THOUSAND) SUBCUT SCH ×4 (00:11→22:01)
[2018-09-01 03:10] LABS: ABS Basophils 0 10^3/ul (0-0.2); ABS Eosinophils 0.2 10^3/ul (0-0.6); ABS Lymphocytes 1.8 10^3/ul (1.0-4.8); ABS Monocytes 0.6 10^3/ul (0-0.8); ABS Neutrophils 4.2 10^3/ul (1.5-7.7); ABS Nucleated RBC 0 10^3/ul; Eosinophil % 2.5 %; Hematocrit 37 % (36-46); Hemoglobin 12.4 g/dL (14.0-18.0); Lymphocyte % 25.8 %; Mean Corpuscular HGB Conc 33 g/dL (31-36); Mean Corpuscular Hemoglobin 29 pg (27-31); Mean Corpuscular Volume 88 fL (80-94); Mean Platelet Volume 8.9 fL (7.4-10.4); Nucleated Red Blood Cells % 0.1; Platelet Count 224 10^3/uL (150-450); Red Cell Distribution Width 14 % (10.5-15); White Blood Count 6.8 10^3/uL (3.5-10.8)
[2018-09-01 03:20] LABS: Calcium 8.9 mg/dL (8.6-10.3); Potassium 3.8 mmol/L (3.5-5.0)
[2018-09-01 03:26] LABS: BUN/Creatinine Ratio 19.5 (8-20); EGFR African American 75.1 (>60); HDL Cholesterol 42.1 mg/dL
--- NOTE | 2018-09-01 06:27 | PN ---
Progress Note - Progress Note Date of Service: 09/01/18 Note: Discontinued metoprolol. Patient bradycardic into low 40's overnight. Asymptomatic.
[2018-09-01] MEDS: Psyllium PAK PO SCH (08:52)
[2018-09-01] MEDS: Pantoprazole TAB * 40 MG TAB PO SCH (08:52)
[2018-09-01] MEDS: Aspirin 81 mg CHEW TAB* 81 MG TAB.CHEW PO SCH (08:52)
[2018-09-01] MEDS ORDERED: amLODIPine TAB* 5 MG PO SCH (09:00)
--- NOTE | 2018-09-01 11:03 | PN ---
Subjective Date of Service: 09/01/18 Interval History: Mr. Duckworth reported chest pain at rest this AM. He denies associated symptoms. He has had no further pain since. Objective Active Medications: Acetaminophen (Tylenol Tab*) 650 mg PO Q4H PRN Al Hydrox/Mg Hydrox/Simethicone (Maalox Plus*) 30 ml PO Q6H PRN Amlodipine Besylate (Norvasc Tab*) 10 mg PO DAILY [facility] Aspirin (Aspirin 81 Mg Chew Tab*) 81 mg PO DAILY [facility] Heparin Sodium (Porcine) (Heparin Vial(*)) 5,000 units SUBCUT Q8HR [facility] Ondansetron HCl (Zofran Inj*) 4 mg IV Q4H PRN Pantoprazole Sodium (Protonix Tab*) 40 mg PO DAILY [facility] Psyllium Hydrophilic Mucilloid (Metamucil Asa*) 1 pkt PO DAILY [facility] Vital Signs: Temp Pulse Resp BP Pulse Ox 97.7 F 49 16 101/60 98 09/01/18 07:16 09/01/18 07:16 09/01/18 07:40 09/01/18 07:16 09/01/18 07:16 Oxygen Devices in Use Now: None Appearance: Male sitting up in bed in NAD Eyes: No Scleral Icterus Ears/Nose/Mouth/Throat: Mucous Membranes Moist Neck: Trachea Midline Respiratory: Symmetrical Chest Expansion and Respiratory Effort, Clear to Auscultation Cardiovascular: NL Sounds; No Murmurs; No JVD, No Edema Abdominal: NL Sounds; No Tenderness; No Distention Extremities: No Edema Skin: No Rash or Ulcers Neurological: Alert and Oriented x 3, NL Muscle Strength and Tone Nutrition: Taking PO's Result Diagrams: 09/01/18 02:58 09/01/18 02:58 Assess/Plan/Problems-Billing Assessment: Mr. Duckworth is a 53 yo F with a PMH of chest pain with negative workup and hypertension who was admitted on 08/31/18 with chest pain. - Patient Problems (1) Chest pain Comment: - trops negative x 3 - EKG with SR and no evidence of ischemia - Plan for stress test on Monday (2) GERD (gastroesophageal reflux disease) Comment: - Continue pantoprazole (3) Hypertension Comment: - SBP 80-100s - Hold amlodipine (4) AMANDA (obstructive sleep apnea) Comment: - Continue cpap (5) DVT prophylaxis Current Visit: Yes Comment: - Heparin SQ (6) Full code status Comment: Status and Disposition: OBV. Anticipate discharge to home after stress test
[2018-09-02] MEDS: Heparin VIAL(*) 5000 UNITS/ML VIAL (FIVE THOUSAND) SUBCUT SCH ×3 (05:50→21:07)
--- NOTE | 2018-09-02 08:08 | PN ---
Subjective Date of Service: 09/02/18 Interval History: Mr. Duckworth has not had any further pain since yesterday AM. He has been ambulating minimally in his room without issue. He denies SOB, nausea, or abdominal pain. Objective Active Medications: Acetaminophen (Tylenol Tab*) 650 mg PO Q4H PRN Al Hydrox/Mg Hydrox/Simethicone (Maalox Plus*) 30 ml PO Q6H PRN Aspirin (Aspirin 81 Mg Chew Tab*) 81 mg PO DAILY [facility] Heparin Sodium (Porcine) (Heparin Vial(*)) 5,000 units SUBCUT Q8HR [facility] Ondansetron HCl (Zofran Inj*) 4 mg IV Q4H PRN Pantoprazole Sodium (Protonix Tab*) 40 mg PO DAILY [facility] Psyllium Hydrophilic Mucilloid (Metamucil Asa*) 1 pkt PO DAILY [facility] Vital Signs: Temp Pulse Resp BP Pulse Ox 97.6 F 50 16 126/78 98 09/02/18 07:47 09/02/18 07:47 09/02/18 07:47 09/02/18 07:47 09/02/18 07:47 Oxygen Devices in Use Now: None Appearance: Male sitting up in chair in NAD Eyes: No Scleral Icterus Ears/Nose/Mouth/Throat: Mucous Membranes Moist Neck: Trachea Midline Respiratory: Symmetrical Chest Expansion and Respiratory Effort, Clear to Auscultation Cardiovascular: NL Sounds; No Murmurs; No JVD, No Edema Abdominal: NL Sounds; No Tenderness; No Distention Extremities: No Edema Skin: No Rash or Ulcers Neurological: Alert and Oriented x 3, NL Muscle Strength and Tone Nutrition: Taking PO's Result Diagrams: 09/01/18 02:58 09/01/18 02:58 Assess/Plan/Problems-Billing Assessment: Mr. Duckworth is a 53 yo F with a PMH of chest pain with negative workup and hypertension who was admitted on 08/31/18 with chest pain. - Patient Problems (1) Chest pain Comment: - Trops negative x 3 - EKG with SR and no evidence of ischemia - Based on quality, severity, and recurrence of chest pain, plan for stress test on Monday (2) GERD (gastroesophageal reflux disease) Comment: - Continue pantoprazole (3) Hypertension Comment: - SBP 80-130s - Hold amlodipine (4) AMANDA (obstructive sleep apnea) Comment: - Continue cpap (5) DVT prophylaxis Current Visit: Yes Comment: - Heparin SQ (6) Full code status Comment: Status and Disposition: OBV. Anticipate discharge to home after stress test
[2018-09-02] MEDS: Pantoprazole TAB * 40 MG TAB PO SCH (08:51)
[2018-09-02] MEDS: Aspirin 81 mg CHEW TAB* 81 MG TAB.CHEW PO SCH (08:51)
[2018-09-02] MEDS: Psyllium PAK PO SCH (08:51)
[2018-09-03] MEDS: Heparin VIAL(*) 5000 UNITS/ML VIAL (FIVE THOUSAND) SUBCUT SCH (05:30)
[2018-09-03] MEDS: Pantoprazole TAB * 40 MG TAB PO SCH (09:46)
[2018-09-03] MEDS: Aspirin 81 mg CHEW TAB* 81 MG TAB.CHEW PO SCH (09:46)
[2018-09-03] MEDS: Psyllium PAK PO SCH (09:46)
[2018-09-03 11:52] VITALS: BP 144/81
--- NOTE | 2018-09-04 00:05 | DS ---
CC: Dr. Doan; Dr. Swann * DISCHARGE SUMMARY: DATE OF ADMISSION: 08/31/18 DATE OF DISCHARGE: 09/03/18 PRIMARY CARE PROVIDER: Dr. Doan. RN PHYSICIAN OFFICE: Dr. Swann. ATTENDING FOR THIS DISCHARGE: Dr. Charis Nguyen.* (DICTATED BY ROSETTA STEWART NP) HOSPITAL COURSE: This 53-year-old male patient with past medical history of hypertension and episodic chest pain, presented to the emergency department with acute onset of chest pain. The patient states it was substernal in nature and radiated up to his throat. He did not have any further symptoms. He had no shortness of breath, no sweating, no cough. The patient also states that he had seen Dr. Swann in the past for chest pain sometime ago, but was ruled out for ACS. Given his comorbidities, he was admitted for chest pain to rule out ACS again. He underwent a stress echo today, which was low risk. The patient had no further episodes of chest pain. His blood pressure remained controlled. He did have some abnormalities in his kidney function, which was mildly elevated likely in the setting of diuretic, antihypertensives. Creatinine trended down today. The patient remained chest pain free. Troponins were negative x3. The patient was ready for discharge after his low risk stress test today. DISCHARGE DIAGNOSES: 1. Chest pain with low risk stress test. 2. History of gastroesophageal reflux disease. 3. Hypertension. 4. Obstructive sleep apnea, on continuous positive airway pressure. DISCHARGE MEDICATIONS: Include: 1. Tylenol 650 mg q. 6 hours as needed. 2. Aspirin 81 mg p.o. daily. 3. Vitamin C 500 mg p.o. daily. 4. Aldactazide 1 tab p.o. daily. 5. Psyllium husk 1 teaspoon daily. 6. Omeprazole 20 mg daily. 7. Nitro 0.4 mg sublingual as needed. 8. Irbesartan 75 mg daily. 9. Amlodipine 10 mg p.o. daily. 10. Vitamin E 400 units daily. REVIEW OF SYSTEMS: On day of discharge, the patient denies any fever, fatigue, or chills. No chest pain, no nausea, no vomiting, no shortness of breath, and no further constitutional complaints. PHYSICAL EXAMINATION: The patient is awake and alert, in no acute distress. Vital Sings: Blood pressure 136/85, heart rate 70, respiratory rate 16, O2 saturation 99% on room air. Temperature 98.2. HEENT: The patient is atraumatic and normocephalic. PERRLA with an anicteric sclerae. Oral mucosa is moist. Tongue is midline. Neck is supple, nontender. No JVD noted. No carotid bruits auscultated. Cardiovascular: S1, S2 present. No murmurs, gallops , or rubs noted. Rate and rhythm are regular. Lungs are clear bilaterally to auscultation with no wheezing, rhonchi, or rales. Abdomen is soft, nontender, nondistended. Moderately obese. Positive bowel sounds in all 4 quadrants. was deferred. Musculoskeletal: There is no clubbing, no cyanosis, no edema. He has +2 distal pulses. Full range of motion. Steady gait. Neurologic: Grossly intact with no focal deficits. Psychiatric: Cooperative and appropriate. DIAGNOSTIC STUDIES/LAB DATA: WBCs 6.8, RBCs 4.20, hemoglobin 12.4, hematocrit 37, platelets 224. Sodium 133, potassium 3.8, chloride 100, CO2 28, BUN 24, creatinine 1.23; down from 1.37. GFR 62.0, glucose 104, lactic acid was negative at 0.6. Calcium 8.9. Troponins were negative at 0.01, 0.00, and 0.00. BNP was 17. Triglycerides 119, cholesterol 151 with an LDL of 85 and an HDL of 42.1. TSH was 2.70. Imaging: Chest x-ray dated 08/31/18 shows no active cardiopulmonary disease. Nuclear medicine portion of his stress test reads no compelling evidence for stress induced ischemia or infarct. Normal left ventricular wall motion and ejection fraction. Ejection fraction is 62% at stress. DISPOSITION: The patient was discharged to home in stable condition. The patient stated his understanding of his discharge instructions, followups, and medications. FOLLOWUPS: The patient was instructed to follow up with Dr. Doan in the next 4 to 7 days and follow up with Dr. Swann from Cardiology on an as needed basis. We have recommended that he has his renal function rechecked when he sees Dr. Doan in the office and evaluate his blood pressure medications given that his renal function was slightly elevated at this visit, it was likely medication induced. TIME SPENT: 35 minutes interviewing the patient and determining discharge plan of care. ROSETTA STEWART NP [id number]/[facility] #: [id number] ANGEL
== END 2018-09-03 12:10 | disposition home or self-care (01) | DRG 203 ==
LOC: ED 20:09 → MEDTELE 22:00 → UNDOADMOB 22:00 → OBSVTOIN 09-01 → INTOOBSV 09-01 11:00 → UNDODISOB 09-03 12:10
PROVIDERS: ADMIT Pediatrics; ATTEND Internal Medicine
DX: R07.9 Chest pain, unspecified (principal); N17.9 Acute kidney failure, unspecified; K21.9 Gastro-esophageal reflux disease without esophagitis; I10 Essential (primary) hypertension; G47.33 Obstructive sleep apnea (adult) (pediatric); J30.2 Other seasonal allergic rhinitis; Z99.89 Dependence on other enabling machines and devices; Z79.82 Long term (current) use of aspirin; Z79.899 Other long term (current) drug therapy; Z88.8 Allergy status to other drugs, medicaments and biological substances; Z82.49 Family history of ischemic heart disease and other diseases of the circulatory system
CPT/HCPCS: 36415; 71045; 78452; 80048; 80053; 80061; 82570; 83605; 83735; 83880; 84300; 84443; 84484; 85025; 85379; 85610; 93005; 93017; 96374; 99284; A9270-GY; A9502; J1644; J3490

== ENCOUNTER 2018-10-22 04:19 | Emergency (ER) | payer BC ==
--- NOTE | 2018-10-22 04:37 | ED ---
HPI Chest Pain - HPI Summary HPI Summary: This patient is a 53 year old M brought in by ambulance to ED with a chief complaint of CP that woke him from sleep this morning at 0330. He reports he has been having intermittent episodes for a few weeks now, about once a week. The CC is described as pressure and non-radiating. The patient was given NTG en route by EMS. The patient rates the pain 7/10 in severity initially but now 4/ 10 after the NTG. Symptoms aggravated by nothing. Symptoms alleviated by tx by EMS. Patient reports TRIANA and nausea. PMHx of HTN, sleep apnea. He denies hx of anxiety or panic attacks and of DM. Patient had a stress test done 2 months ago which was negative. He also had a CTA chest done last week which he does not know the results yet for. His rn neonatal icu is Dr. Swann. He also has an appointment with a dust mill operator later this week. - History of Current Complaint Chief Complaint: EDChestPainROMI Time Seen by Provider: 10/22/18 04:28 Hx Obtained From: Patient Onset/Duration: Started Hours Ago - since 0330, Still Present Timing: Intermittent - for the last few weeks Initial Severity: Moderate - 7/10 Current Severity: Mild Pain Intensity: 4 Pain Scale Used: 0-10 Numeric Chest Pain Radiates: No Character: Pressure/Squeezing Aggravating Factor(s): Nothing Alleviating Factor(s): EMS Tx Associated Signs and Symptoms: Positive: Chest Pain, Headaches, Nausea - Additional Pertinent History Primary Care Physician: FERMÍN - Allergy/Home Medications Allergies/Adverse Reactions: Allergies Allergy/AdvReac Type Severity Reaction Status Date / Time lisinopril Allergy Coughing Verified 10/22/18 04:25 phentermine Allergy dizziness, Verified 10/22/18 04:25 dry mouth SEASONAL ENVIRONMENTAL Allergy RUNNY Uncoded 10/22/18 04:25 ALLERGIES NOSE, WATERY EYES, CONGESTION Home Medications: Home Medications Nitroglycerin 0.1 mg/Hr PATCH* [Nitroglycerin 2.5 MG PATCH*] 1 patch TOPICAL DAILY 10/22/18 [History Confirmed 10/22/18] Omeprazole 1 cap PO QAM 10/22/18 [History Confirmed 10/22/18] PMH/Surg Hx/FS Hx/Imm Hx Endocrine/Hematology History: Denies: Hx Diabetes Cardiovascular History: Reports: Hx Angina, Hx Hypertension Denies: Hx Coronary Artery Disease, Hx Hypercholesterolemia, Hx Myocardial Infarction, Hx Valvular Heart Disease Respiratory History: Reports: Hx Sleep Apnea Denies: Hx Asthma, Hx Chronic Obstructive Pulmonary Disease (COPD) Sensory History: Denies: Hx Contacts or Glasses, Hx Hearing Aid Opthamlomology History: Denies: Hx Contacts or Glasses - Surgical History Surgery Procedure, Year, and Place: 2002 REMOVAL OF RIGHT FLANK MASS, [facility] Hx Anesthesia Reactions: No - Immunization History Date of Tetanus Vaccine: unk Date of Influenza Vaccine: none Infectious Disease History: No Infectious Disease History: Denies: Traveled Outside the [place] in Last 30 Days - Family History Known Family History: Positive: Cardiac Disease - mother had HI, Hypertension, Diabetes - Social History Alcohol Use: None Hx Substance Use: No Substance Use Type: Reports: None Hx Tobacco Use: No Smoking Status (MU): Former Smoker Review of Systems Positive: Chest Pain Positive: Nausea Positive: Headache All Other Systems Reviewed And Are Negative: Yes Physical Exam - Summary Physical Exam Summary: VITAL SIGNS: Reviewed. GENERAL: Patient is a well-developed and nourished MALE who is lying comfortable in the stretcher. Patient is not in any acute respiratory distress. HEAD AND FACE: No signs of trauma. No ecchymosis, hematomas or skull depressions. No sinus tenderness. EYES: PERRLA, EOMI x 2, No injected conjunctiva, no nystagmus. EARS: Hearing grossly intact. Ear canals and tympanic membranes are within normal limits. MOUTH: Oropharynx within normal limits. NECK: Supple, trachea is midline, no adenopathy, no JVD, no carotid bruit, no c- spine tenderness, neck with full ROM CHEST: Symmetric, no tenderness at palpation LUNGS: Clear to auscultation bilaterally. No wheezing or crackles. CVS: Regular rate and rhythm, S1 and S2 present, no murmurs or gallops appreciated. ABDOMEN: Soft, non-tender. No signs of distention. No rebound no guarding, and no masses palpated. Bowel sounds are normal. EXTREMITIES: FROM in all major joints, no edema, no cyanosis or clubbing. NEURO: Alert and oriented x 3. No acute neurological deficits. Speech is normal and follows commands. SKIN: Dry and warm Triage Information Reviewed: Yes Vital Signs On Initial Exam: Initial Vitals Temp Pulse Resp BP Pulse Ox 99 F 88 16 136/79 96 05/13/19 04:22 10/22/18 04:22 10/22/18 04:22 10/22/18 04:22 10/22/18 04:22 Vital Signs Reviewed: Yes Diagnostics - Vital Signs Vital Signs Temp Pulse Resp BP Pulse Ox 10/22/18 04:22 99 F 88 16 136/79 96 - Laboratory Result Diagrams: 10/22/18 04:46 10/22/18 04:46 Lab Statement: Any lab studies that have been ordered have been reviewed, and results considered in the medical decision making process. - EKG 0418 Cardiac Rate: NL - 86 BPM EKG Rhythm: Sinus Rhythm Summary of EKG Findings: NSR at 86 BPM, normal axis, normal interval, no ischemic changes. Chest Pain Course/Dx - Course Assessment/Plan: This patient is a 53 year old M brought in by ambulance to ED with a chief complaint of CP that woke him from sleep this morning at 0330. In the ED course, the patient was given Maalox, Xylocaine, Morphine, and Compazine. EKG reveals NSR at 86 BPM, normal axis, normal interval, no ischemic changes. This patient will be signed out to Dr. Macedo upon shift change, pending dispo, awaiting second trop. - Chest Pain Differential Diagnosis/HQI/PQRI: Other: - chest pain - Diagnoses Provider Diagnoses: Chest pain Discharge - Sign-Out/Discharge Documenting (check all that apply): Sign-Out Patient - pending dispo, awaiting second trop Signing out patient TO: Lio Macedo Patient Received Moderate/Deep Sedation with Procedure: No - Discharge Plan Condition: Stable Referrals: Marcos Doan MD [Primary Care Provider] - - Attestation Statements Document Initiated by Scribe: Yes Documenting Scribe: Cristobal Mayfield Provider For Whom Scribe is Documenting (Include Credential): Faby Nice MD Scribe Attestation: I, Cristobal Mayfield, scribed for Faby Nice MD on 10/22/18 at 0551. Status of Scribe Document: Ready
[2018-10-22] MEDS ORDERED: PROCHLORPERAZINE INJ 5 MG/ML 2 ML VIAL IM ONE (04:39)
[2018-10-22] MEDS ORDERED: Morphine 4 MG/ML VIAL (1 ml) 4 MG/ML VIAL IM ONE (04:39)
[2018-10-22] MEDS ORDERED: Lidocaine 2% VISCOUS* 15 ML UDC PO ONE (04:40)
[2018-10-22] MEDS ORDERED: Al Hydrox/Mg Hydrox/Simet LIQ* 30 ML UDC PO ONE (04:40)
--- OUTSIDE RECORDS SUMMARY | 2018-10-22 04:45 | XMS REPORT | Continuity of Care Document ---
:1965 External Reference #:[id number] Author Name Latrice Nation Care Team Providers Name Role Phone Ana Anaya MD Primary Care Physician Unavailable Payers Date Identification Numbers Payment Provider Subscriber Policy Number: [id number] [employer] Sirathorn Balakula PayID: [id number] [address] [address] [place] [address] Expires: 2018 Policy Number: [id number] [employer] Sirathorn Balakula PayID: [id number] [address] [address] [place] [address] Advance Directives Description No Information Available Problems Active Problems Provider Date Headache Ez Munoz M.D. Onset: 10/15/2018 Skin sensation disturbance Ez Munoz M.D. Onset: 10/15/2018 Family History Date Family Member(s) Observation Comments Father due to MVA () - at 29 y.o. 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 Tobacco Use Start: Unknown End: Former Cigarette Smoked for 10 years, Unknown Smoker 1 ppd; quit in 1995 Smoking Status Reviewed: 10/15/18 Former Cigarette Smoked for 10 years, Smoker 1 ppd; quit in 1995 ETOH Use Rarely consumes once or twice a year alcohol only Tobacco Use Start: Unknown End: Patient is a former Unknown smoker Recreational Drug Use Denies Drug Use Exercise Type/Frequency Exercises regularly walks daily, 30 min on treadmill 7 days/week Allergies, Adverse Reactions, Alerts Active Allergies Reaction Severity Comments Date Lisinopril cough, trouble swallowing 11/29/2016 Phentermine dizzy and dry mouth 05/28/2018 Medications Active Medications SIG Qnty Indications Ordering Date Provider Nitroglycerin on every morning 30units R07.9 Domi Eubanks, 10/05/2018 0.1mg/HR and off qpm. N.P. Patches 24HR Potassium Chloride ER 1 by mouth every 30tabs R00.2 Domi Eubanks, 2018 day N.P. 20Meq Tablets ER Metamucil 1 tsp by mouth Perry Jefferson 05/28/2018 daily mixed with Elba Swann water or juice Bipap for use while Won Aviles 09/28/2017 Device sleeping Ebla Ibarra Amlodipine Besylate 1 by mouth every Unknown 10mg day Tablets Spironolactone/Hydroch Take 1 Tablet By Unknown lorothiazide Mouth Every Day 25-25mg For Blood Tablets Pressure Vitamin E 1 tab by mouth Unknown 400Unit daily Capsules Irbesartan Take 1 Tablet By Unknown 75mg Tablets Mouth Every Day For High Blood Pressure Aspirin Adult Low Dose 1 by mouth every Unknown day 81mg Tablets Omeprazole 1 by mouth every Unknown 40mg Capsules day DR Vitamin C Plus 1 by mouth every Unknown 500mg day Tablets Aspirin Adult take 2 tabs Unknown 325mg every 6 hours Tablets prn History Medications Metoprolol Succinate ER 1/2 tab by mouth 30tabs I10 Perry Jefferson 2017 - at night Elba Swann 07/10/2018 25mg Tablets ER 24HR Aspirin Low Dose Adult 1 by mouth daily Unknown 05/27/2018 - 81mg 08/30/2018 Tablets Bipap for use while Unknown 05/27/2018 - Device sleeping 05/27/2018 Phentermine HCL 1 by mouth every Unknown - 37.5mg day Unknown Capsules Clindamycin HCL 1 tabs by mouth 4 Unknown - 300mg times a day Unknown Capsules Phendimetrazine 1 tablet by mouth Unknown - Tartrate 3 times per day 04/18/2018 35mg Tablets prior to meakls for weight loss Vitamin C 1 by mouth every Unknown - 125mg Chewtabs day 10/05/2018 Aspirin Low Dose Take 1 Tablet By Unknown - 81mg Mouth Every Day 05/15/[address] one tablet 25tabs Domi Eubanks, - 0.4mg Tablets Sub under the tongue N.P. 10/05/2018 as needed for chest pain, may repeat Omeprazole 1 cap by mouth Ana Anaya MD - 20mg Capsules DR laws 10/05/2018 Metamucil Free & 1 tablespoon a day Unknown - Natural mixed w/ water 05/16/2018 43% Powder Emergen-C Immune 9.3g Unknown - Packet 05/16/2018 Immunizations Description No Information Available Vital Signs Date Vital Result Comment 10/15/2018 2:18pm Height 67 inches 5'7" Weight 244.00 lb Heart Rate 78 /min BP Systolic 158 mmHg BP Diastolic 90 mmHg BMI (Body Mass Index) 38.2 kg/m2 10/09/2018 10:28am Height 67 inches 5'7" Weight 244.00 lb Heart Rate 74 /min BP Systolic Sitting 138 mmHg upper left arm large cuff BP Diastolic Sitting 80 mmHg upper left arm large cuff Respiratory Rate 12 /min O2 % BldC Oximetry 98 % BMI (Body Mass Index) 38.2 kg/m2 10/05/2018 11:53am Height 67 inches 5'7" Weight 245.75 lb Heart Rate 60 /min BP Systolic Sitting 154 mmHg la reg BP Diastolic Sitting 90 mmHg la reg BP Systolic Standing 148 mmHg la reg BP Diastolic Standing 94 mmHg la reg BMI (Body Mass Index) 38.5 kg/m2 Ejection Fraction 55-60% echo 06/27/2018 09/04/2018 9:48am Height 67 inches 5'7" Weight 246.00 lb Heart Rate 72 /min BP Systolic Sitting 124 mmHg BP Diastolic Sitting 82 mmHg Respiratory Rate 18 /min Body Temperature 97.1 F BMI (Body Mass Index) 38.5 kg/m2 08/30/2018 10:53am Height 67 inches 5'7" Weight [...] Date Facility Test Result H/L Range Note Catecholamines Plasma 10/09/2018 [facility] Norepinephrine 269 pg/mL [address] [place] [address] [phone] Epinephrine <25 pg/mL 2 Dopamine <25 pg/mL 3 Laboratory test 10/05/2018 [facility] Magnesium 2.2 mg/dL N 1.9-2.[address] [place] [address] [phone] Aldosterone <4.0 ng/dL <=21 5 Comp Metabolic Panel 10/05/2018 [facility] Sodium 138 mmol/L N 135-[address] [place] [address] [phone] Potassium 4.1 mmol/L N 3.5-5.0 Chloride 105 mmol/L N 101-111 Co2 Carbon Dioxide 28 mmol/L N 22-32 Anion Gap 5 mmol/L N 2-11 Glucose 93 mg/dL N 70-100 Blood Urea Nitrogen 20 mg/dL N 6-24 Creatinine 1.23 mg/dL High 0.67-1.17 BUN/Creatinine Ratio 16.3 N 8-20 Calcium 9.4 mg/dL N 8.6-10.3 Total Protein 8.0 g/dL N 6.4-8.9 Albumin 4.7 g/dL N 3.2-5.2 Globulin 3.3 g/dL N 2-4 Albumin/Globulin Ratio 1.4 N 1-3 Total Bilirubin 0.60 mg/dL N 0.2-1.0 Alkaline Phosphatase 47 U/L N 34-104 Alt 22 U/L N 7-52 Ast 21 U/L N 13-39 Egfr Non- 62.0 >60 Egfr 75.1 >60 6 Laboratory test 10/05/2018 [facility] Troponin-I (TnI) 0.01 ng/ mL <0.[address] [place] [address] [phone] Magnesium 2.2 mg/dL N 1.9-2.7 8 Laboratory test 05/30/2018 [facility] Hemoglobin A1c 5.0 % N 4.0-5.[address] (Glyco HGB) [place] [address] [phone] Lipid Profile 05/30/2018 [facility] Triglycerides 123 10 (Trig/Chol/HDL) [address] mg/[place] [address] [phone] Cholesterol 192 mg/dL 11 HDL Cholesterol 48.3 mg/dL 12 LDL Cholesterol 119 mg/dL 13 Lipid Panel - 05/30/2018 [facility] Creatine 100 U/L N 10-[address] Kinase(CK) [place] [address] [phone] Laboratory test 05/30/2018 [facility] TSH (Thyroid 2.82 N 0.34 -5.[address] Stim Horm) mcIU/mL [place], [place] [id number] [phone] Magnesium 1.9 mg/dL N 1.9-2.7 16 D Dimer Quantitative < 200 ng/mL N Less Than 230 17 Amylase 110 U/L High 29-103 18 GGTP 30 U/L N 9-64.0 19 Total Bilirubin 0.60 mg/dL N 0.2-1.0 Erythrocyte Sed Rate 35 mm/Hr High 0-20 20 CRP High Sensitivity 4.59 mg/L High <2.00 21 Comp Metabolic Panel 05/30/2018 [facility] Sodium 140 mmol/L N 135-[address] [place] [address] [phone] Potassium 4.1 mmol/L N 3.5-5.0 Chloride 101 [...] Egfr Non- 68.0 >60 Egfr 82.3 >60 22 1 REFERENCE VALUE 70-750 (Supine) 200-1700 (Standing) 2 REFERENCE VALUE <111 (Supine) <141 (Standing) 3 REFERENCE VALUE <30 (no postural change) ADDITIONAL INFORMATION PLEASE NOTE: High/Low flagging is based on supine normal values. This test was developed and its performance characteristics determined by [facility] in a manner consistent with CLIA requirements. This test has not been cleared or approved by the U.S. Food and Drug Administration. Test Performed by: [facility] [employer] - [facility] [employer] [address] [place] [id number] 4 3 w 5 ADDITIONAL INFORMATION Reference range for patients 11 years and older is based on upright A.M. collection from subjects without sodium restrictions. This test was developed and its performance characteristics determined by [facility] in a manner consistent with CLIA requirements. This test has not been cleared or approved by the U.S. Food and Drug Administration. Test Performed by: [facility] [employer] - [address] [address] 6 Because ethnic data is not always readily [...] 15-29 5 Kidney failure <15 (or dialysis) 7 Troponin-I testing on Plasma Separator Tubes (PST) has a known false positive rate of 0.20-0.40%. All positive troponins reflex immediately to secondary confirmatory testing. Using the [employer] DxI 800 Access Immunoassay systems, the 99th percentile upper reference limit was demonstrated to be < 0.03 ng/mL. 8 3 w 9 Therapeutic target for the treatment of diabetes mellitus patients is <7% HBA1C, and in selective patients <6.0%. Please refer to [place] [employer] diabetic care guidelines for further information. 10 Desirable: <150 Borderline High: 150-199 High: 200-499 Very High: >500 11 Desirable: <200 Borderline High: 200-239 High: >239 12 Low: <40 Desirable: 40-60 High: >60 13 Desirable: <100 Near Optimal: 100-129 Borderline High: 130-159 High: 160-189 Very High: >189 14 FASTING Copy Result to: ANA ANAYA ([id number]) 15 FASTING Copy Result to: ANA ANAYA ([id number]) 16 FASTING Copy Result to: ANA ANAYA ([id number]) 17 Please note: The following may produce a false positive D Dimer test: - Rheumatoid factor greater than 60 IU/ml - Plasma hemoglobin greater than 0.05 gm/dl - Bilirubin greater than 50 mg/dl - Lipids greater than 1000 mg/dl - FDP greater than 20 ug/ml 18 FASTING Copy Result to: ANA ANAYA ([id number]) 19 FASTING Copy Result to: ANA ANAYA ([id number]) 20 FASTING Copy Result to: ANA ANAYA ([id number]) 21 FASTING Copy Result to: ANA ANAYA ([id number]) 22 Because ethnic data is not always readily [...] 15-29 5 Kidney failure <15 (or dialysis) Procedures Date Code Description Status 10/05/2018 56014 EKG Tracing & Interpretation Completed 09/03/2018 55127 Treadmill Interp/Report Only Completed 09/03/2018 15851 Stress Test Supervsn W/Out I/R Completed 08/30/2018 72881 EKG Tracing & Interpretation Completed 07/07/2018 60395 Holter Monitor Review (24 hr)dr review & interp only Completed 07/02/2018 27672 ECG Monitor/Recording W/Visual Superimposition Scanning Completed 07/02/2018 74355 ECG Monitor/Recording W/Visual Superimposition Scanning Completed 06/27/2018 65828 ECHO Transthoracic, Real-Time 2D With Doppler And Color Completed Flow 06/27/2018 02546 ECHO Transthoracic, Real-Time 2D With Doppler And Color Completed Flow 06/22/2018 81332 Polysomnography Sleep Staging 4+ Parameters W/Cpap Completed 05/28/2018 98947 EKG Tracing & Interpretation Completed 02/22/2018 08704 EKG, Interpretation Only Completed 09/26/2017 11778 Treadmill Interp/Report Only Completed 09/26/2017 27112 Stress Test Supervsn W/Out I/R Completed 09/26/2017 53445 EKG, Interpretation Only Completed 01/17/2017 10385 Anoscopy Completed Encounters Type Date Location Provider Dx Diagnosis Office Visit 10/15/2018 [facility] Ez Munoz, R20.2 Paresthesia of 2:30p Services Of Venita Arreola skin R51 Headache Office Visit 10/09/2018 [facility] G47.33 Obstructive sleep 10:30a [facility] CHRISTIANO Linares, RN, apnea (adult) [employer] [facility] (pediatric) Office Visit 10/05/2018 [facility] Domi Eubanks, R07.9 Chest pain , 12:00p N.P. unspecified I10 Essential (primary) hypertension R94.31 Abnormal electrocardiogram [ECG] [EKG] G47.33 Obstructive sleep apnea (adult) (pediatric) Office Visit 09/04/2018 [facility] Solo Stokes R10.13 Epigastric pain 10:00a [facility] John M.D. Office Visit 09/03/2018 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 Sue Juwan, R07.9 Chest pain , Assoc,pc N.P. unspecified Hospitalists K21.9 Gastro-esophageal reflux disease without esophagitis I10 Essential (primary) hypertension G47.33 Obstructive sleep apnea (adult) (pediatric) Office Visit 09/01/2018 10:04a [facility] Sue Echeverria, R07.9 Chest pain , Assoc,pc N.P. unspecified Hospitalists K21.9 Gastro-esophageal reflux disease without esophagitis I10 Essential (primary) hypertension G47.33 Obstructive sleep apnea (adult) (pediatric) Office Visit 08/31/2018 10:04a [facility] Sujatha R07.9 Chest pain, Assoc,pc Root, DO unspecified Hospitalists Office Visit 08/30/2018 11:00a [facility] Domi S. G47.33 Obstructive sleep Foster, N.P. apnea (adult) (pediatric) R00.2 Palpitations R07.9 Chest pain, unspecified I10 Essential (primary) hypertension R06.02 Shortness of breath Z68.38 Body mass index (BMI) 38.0-38.9, adult Office Visit 07/18/2018 9:30a [facility] Domi S. G47.33 Obstructive sleep Foster, N.P. apnea (adult) (pediatric) R00.2 Palpitations R07.9 Chest pain, unspecified I10 Essential (primary) hypertension Office Visit 07/11/2018 [facility] G47.33 Obstructive sleep 2:00p [facility] CH[facility]ST[facility]O Linares, RN, apnea (adult) [facility] (pediatric) Z68.38 Body mass index (BMI) 38.0-38.9, adult Office Visit 06/13/2018 8:30a [facility] Domi CamronWendy E66.01 Morbid ( severe) Raimundo N.P. obesity due to excess calories R07.9 Chest pain, unspecified K80.20 Calculus of gallbladder w/o cholecystitis w/o obstruction I10 Essential (primary) hypertension Z68.38 Body mass index (BMI) 38.0-38.9, adult Office Visit 05/28/2018 3:00p [facility] Perry Jefferson G47.33 Obstructive sleep Elba Swann apnea (adult) (pediatric) E66.01 Morbid (severe) obesity due to excess calories R07.9 Chest pain, unspecified K80.20 Calculus of gallbladder w/o cholecystitis w/o obstruction I10 Essential (primary) hypertension R00.2 Palpitations E87.6 Hypokalemia K21.9 Gastro-esophageal reflux disease without esophagitis Office Visit 04/19/2018 2:30p [facility] G47.33 Obstructive sleep [facility] MD Beba apnea (adult) [employer] (pediatric) R53.83 Other fatigue E66.01 Morbid (severe) obesity due to excess calories Z68.41 Body mass index (BMI) 40.0-44.9, adult Office Visit 03/06/2018 11:59a [facility] Galen R07.9 Chest pain, Assoc,JARETH Gruber unspecified Hospitalists R94.5 Abnormal results of liver function studies K80.20 Calculus of gallbladder w/o cholecystitis w/o obstruction Office Visit 02/21/2018 1:23p [facility] Galen R07.9 Chest pain, Assoc,JARETH Gruber unspecified Hospitalists R06.02 Shortness of breath Office Visit 09/26/2017 1:18p [facility] Charis Nguyen, I10 Essential Assocrissa M.D. (primary) Hospitalists hypertension E66.9 Obesity, unspecified R07.9 Chest pain, unspecified Z68.41 Body mass index (BMI) 40.0-44.9, adult Office Visit 09/25/2017 [facility] Raigat I10 Essential 1:17p Assoc,pc JARETH Michael (primary) Hospitalists hypertension E66.9 Obesity, unspecified R07.9 Chest pain, unspecified Z68.41 Body mass index (BMI) 40.0-44.9, adult Office Visit 01/17/2017 8:30a Surgical Nomi Schneider K61.1 Rectal abscess [facility] MD Amy K62.5 Hemorrhage of anus and rectum K64.0 First degree hemorrhoids Office Visit 09/22/2009 1:45a [facility] Wilfrido Maldonado, 786.59 Pain Chest Assoc,pc M.D. Other Hospitalists 780.2 Syncope & Collapse 401.9 Hypertension Unspec 278.00 Obesity Unspec Office Visit 09/21/2009 2:15a [facility] Radhames Ochoa, 786.50 Pain Chest Assoc,pc M.D. Unspec Hospitalists Plan of Treatment Future Appointment(s):11/09/2018 11:00 am - Ismael Syed N.P. at [facility]10/11/2019 11:00 am - Melida iLnares DNP, RN, [facility]- at [facility]11/07/2018 3:40 pm - Perry Swann M.D. at [place] Rqyshdhwwz00/06/2019 - Ez Munoz M.D.R20.2 Paresthesia of skinFollow up:4 weeks with Mat HeadacheNew Xrays:MRI Brain W/ Wo, Ordered: 10/15/18Cta Head/Neck [id number] - [id number], Ordered: Recommendations:call one week after your ct and mri
--- OUTSIDE RECORDS SUMMARY | 2018-10-22 04:46 | XMS REPORT | Continuity of Care Document ---
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 20Meq Tablets ER Metamucil 1 tsp by mouth Perry Jefferson 05/28/2018 daily mixed with Elba Swann water or juice Bipap for use while Won Aviles 09/28/2017 Device sleeping Elba Ibarra Amlodipine Besylate 1 by mouth every Unknown 10mg day Tablets Spironolactone/Hydroch Take 1 Tablet By Unknown lorothiazide Mouth Every Day 25-25mg For Blood Tablets Pressure Vitamin E 1 tab by mouth Unknown 400Unit daily Capsules Irbesartan Take 1 Tablet By Unknown 75mg Tablets Mouth Every Day For High Blood Pressure Aspirin Adult Low Dose 1 by mouth every Unknown day 81mg Tablets DR Omeprazole 1 by mouth every Unknown 40mg [...] Ana Anaya MD - 20mg Capsules DR daily 10/05/2018 Metamucil Free & 1 tablespoon a day Unknown - Natural mixed w/ water 05/16/2018 43% Powder Emergen-C Immune 9.3g Unknown - Packet 05/16/2018 Immunizations Description No Information Available Vital Signs Date Vital Result Comment 10/05/2018 11:53am Height 67 inches 5'7" Weight [...] Date Facility Test Result H/L Range Note Laboratory test 05/30/2018 [facility] Hemoglobin A1c 5.0 % N 4.0-5.6 1 finding 101 (Glyco HGB) [place] [address] [phone] Lipid Profile 05/30/2018 [facility] Triglycerides 123 mg/dL 2 (Trig/Chol/HDL) [place] [address] [phone] Cholesterol 192 mg/dL 3 HDL Cholesterol 48.3 mg/dL 4 LDL Cholesterol 119 mg/dL 5 Lipid Panel - 05/30/2018 [facility] Creatine 100 U/L N 10-223 6 JFM Kinase(CK) [place] [address] [phone] Laboratory test 05/30/2018 [facility] TSH (Thyroid 2.82 N 0.34 -5.60 7 finding Stim Horm) mcIU/[place] [address] [phone] Magnesium 1.9 mg/dL N 1.9-2.7 8 D Dimer Quantitative < 200 ng/mL N Less Than 230 9 Amylase 110 U/L High 29-103 10 GGTP 30 U/L N 9-64.0 11 Total Bilirubin 0.60 mg/dL N 0.2-1.0 Erythrocyte Sed Rate 35 mm/Hr High 0-20 12 CRP High Sensitivity 4.59 mg/L High <2.00 13 Comp Metabolic Panel 05/30/2018 [facility] Sodium 140 mmol/L N 135-[address] [place] [address] [phone] Potassium 4.1 mmol/L N 3.5-5.0 Chloride 101 [...] Egfr Non- 68.0 >60 Egfr 82.3 >60 14 1 Therapeutic target for the treatment of diabetes mellitus patients is <7% HBA1C, and in selective patients <6.0%. Please refer to [place] [employer] diabetic care guidelines for further information. 2 Desirable: <150 Borderline High: 150-199 High: 200-499 Very High: >500 3 Desirable: <200 Borderline High: 200-239 High: >239 4 Low: <40 Desirable: 40-60 High: >60 5 Desirable: <100 Near Optimal: 100-129 Borderline High: 130-159 High: 160-189 Very High: >189 6 FASTING Copy Result to: ANA ANAYA ([id number]) 7 FASTING Copy Result to: ANA ANAYA ([id number]) 8 FASTING Copy Result to: ANA NAAYA ([id number]) 9 Please note: The following may produce a false positive D Dimer test: - Rheumatoid factor greater than 60 IU/ml - Plasma hemoglobin greater than 0.05 gm/dl - Bilirubin greater than 50 mg/dl - Lipids greater than 1000 mg/dl - FDP greater than 20 ug/ml 10 FASTING Copy Result to: ANA ANAYA ([id number]) 11 FASTING Copy Result to: ANA ANAYA ([id number]) 12 FASTING Copy Result to: ANA ANAYA ([id number]) 13 FASTING Copy Result to: ANA ANAYA ([id number]) 14 Because ethnic data is not always readily [...] dialysis) Procedures Date Code Description Status 10/05/2018 24909 EKG Tracing & Interpretation Completed 09/03/2018 35070 Treadmill Interp/Report Only Completed 09/03/2018 96302 Stress Test Supervsn W/Out I/R Completed 08/30/2018 72336 EKG Tracing & Interpretation Completed 07/07/2018 55514 Holter Monitor Review (24 hr)dr review & interp only Completed 07/02/2018 58879 ECG Monitor/Recording W/Visual Superimposition Scanning Completed 07/02/2018 87205 ECG Monitor/Recording W/Visual Superimposition Scanning Completed 06/27/2018 88318 ECHO Transthoracic, Real-Time 2D With Doppler And Color Completed Flow 06/27/2018 39982 ECHO Transthoracic, Real-Time 2D With Doppler And Color Completed Flow 06/22/2018 81682 Polysomnography Sleep Staging 4+ Parameters W/Cpap Completed 05/28/2018 05829 EKG Tracing & Interpretation Completed 02/22/2018 45628 EKG, Interpretation Only Completed 09/26/2017 63844 Treadmill Interp/Report Only Completed 09/26/2017 99027 Stress Test Supervsn W/Out I/R Completed 09/26/2017 99244 EKG, Interpretation Only Completed 01/17/2017 58825 Anoscopy Completed Encounters Type Date Location Provider Dx Diagnosis Office Visit 10/05/2018 [facility] Domi Eubanks, R07.9 Chest pain , 12:00p N.P. unspecified I10 Essential (primary) hypertension R94.31 Abnormal electrocardiogram [ECG] [EKG] G47.33 Obstructive sleep apnea (adult) (pediatric) Office Visit 09/04/2018 [facility] R10.13 Epigastric pain 10:00a [facility] M[facility] 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 unspecified Hospitalists K21.9 Gastro-esophageal reflux disease without esophagitis I10 Essential (primary) hypertension G47.33 Obstructive sleep apnea (adult) (pediatric) Office Visit 09/01/2018 10:04a [facility] Sue Echeverria, R07.9 Chest pain , Assoc,pc N.P. unspecified Hospitalists K21.9 Gastro-esophageal reflux disease without esophagitis I10 Essential (primary) hypertension G47.33 Obstructive sleep apnea (adult) (pediatric) Office Visit 08/31/2018 10:04a [facility] Sujatha R07.9 Chest pain, Assoc,pc [facility], unspecified Hospitalists Office Visit 08/30/2018 11:00a [facility] Domi Schneider G47.33 Obstructive sleep Foster, N.P. apnea (adult) (pediatric) R00.2 Palpitations R07.9 Chest pain, unspecified I10 Essential (primary) hypertension R06.02 Shortness of breath Z68.38 Body mass index (BMI) 38.0-38.9, adult Office Visit 07/18/2018 9:30a [facility] Domi Schneider G47.33 Obstructive sleep Raimundo N.PWendy apnea (adult) (pediatric) R00.2 Palpitations R07.9 Chest pain, unspecified I10 Essential (primary) hypertension Office Visit 07/11/2018 [facility] G47.33 Obstructive sleep 2:00p [facility] CHRISTIANO Linares, RN, apnea (adult) [facility] NEON GLASS BLOWER- (pediatric) Z68.38 Body mass index (BMI) 38.0-38.9, adult Office Visit 06/13/2018 8:30a [facility] Domi Schneider E66.01 Morbid ( severe) Raimundo N.P. obesity due to excess calories R07.9 Chest pain, unspecified K80.20 Calculus of gallbladder w/o cholecystitis w/o obstruction I10 Essential (primary) hypertension Z68.38 Body mass index (BMI) 38.0-38.9, adult Office Visit 05/28/2018 3:00p [facility] Perry Jefferson G47.33 Obstructive sleep Elba Swann apnea (adult) (pediatric) E66.01 Morbid (severe) obesity due to excess calories R07.9 Chest pain, unspecified K80.20 Calculus of gallbladder w/o cholecystitis w/o obstruction I10 Essential (primary) hypertension R00.2 Palpitations E87.6 Hypokalemia K21.9 Gastro-esophageal reflux disease without esophagitis Office Visit 04/19/2018 2:30p [facility] G47.33 Obstructive sleep [facility] MD Beba apnea (adult) [facility] (pediatric) R53.83 Other fatigue E66.01 Morbid (severe) obesity due to excess calories Z68.41 Body mass index (BMI) 40.0-44.9, adult Office Visit 03/06/2018 11:59a [facility] R07.9 Chest pain, Assoc,pc JARETH Burton unspecified Hospitalists R94.5 Abnormal results of liver function studies K80.20 Calculus of gallbladder w/o cholecystitis w/o obstruction Office Visit 02/21/2018 1:23p [facility] R07.9 Chest pain, Assoc,pc JARETH Burton unspecified Hospitalists R06.02 Shortness of breath Office Visit 09/26/2017 1:18p [facility] Charis Nguyen, I10 Essential Assoc,rissa Arreola (primary) Hospitalists hypertension E66.9 Obesity, unspecified R07.9 Chest pain, unspecified Z68.41 Body mass index (BMI) 40.0-44.9, adult Office Visit 09/25/2017 [facility] Kami I10 Essential 1:17p Assoc,pc JARETH Michael (primary) Hospitalists hypertension E66.9 Obesity, unspecified R07.9 Chest pain, unspecified Z68.41 Body mass index (BMI) 40.0-44.9, adult Office Visit 01/17/2017 8:30a [facility] Nomi Jennie K61.1 Rectal abscess [facility] MD Amy K62.5 Hemorrhage of anus and rectum K64.0 First degree hemorrhoids Office Visit 09/22/2009 1:45a [facility] Wilfrido Joel, 786.59 Pain Chest Assoc,rissa Arreola Other Hospitalists 780.2 Syncope & Collapse 401.9 Hypertension Unspec 278.00 Obesity Unspec Office Visit 09/21/2009 2:15a [facility] Radhames Ochoa, 786.50 Pain Chest Assoc,rissa Arreola Unspec Hospitalists Plan of Treatment Future Appointment(s):11/07/2018 3:40 pm - Perry Swann M.D. at [facility]/30/2019 10:30 am - Melida Linares DNP, RN, NEON GLASS BLOWER- at [facility]10/15/2018 2:30 pm - Ez Munoz M.D. at [facility]10/05/2018 - Domi Eubanks N.PWendyR07.9 Chest pain, unspecifiedNew Medication:Nitroglycerin 0.1 mg/HR - on every morning and off qpm.Follow up:please print lab order from end august. [facility] 10/2018 see if we can move up CTA coronaries maybe tonie?Recommendations:Try nitro patch We will see if we can move up CTA [id number] Essential (primary) tebjjjhfcibzT56.31 Abnormal electrocardiogram [ECG] [EKG]G47.33 Obstructive sleep apnea (adult) ( pediatric)
--- OUTSIDE RECORDS SUMMARY | 2018-10-22 04:46 | XMS REPORT | Continuity of Care Document ---
:1965 External Reference #:[id number] Author Name Aminta Fernandez Care Team Providers Name Role Phone Ana Anaya MD Primary Care Physician Unavailable Payers Date Identification Numbers Payment Provider Subscriber Policy Number: [id number] BS Facets Sirathorn Balakula PayID: [id number] [address] [address] [place] [address] Expires: 2018 Policy Number: [id number] BS Facets Sirathorn Balakula PayID: [id number] [address] [address] [place] [address] Advance Directives Description No Information Available Problems Description No Information Family History Date Family Member(s) Observation Comments Father due to MVA () - at 29 y.o. 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 Tobacco Use Start: Unknown End: Former Cigarette Smoked for 10 years, Unknown Smoker 1 ppd; quit in 1995 Smoking Status Reviewed: 10/09/18 Former Cigarette Smoked for 10 years, Smoker [...] Available Vital Signs Date Vital Result Comment 10/09/2018 10:28am Height 67 inches 5'7" Weight [...] Test Result H/L Range Note Laboratory test 10/05/2018 [facility] Magnesium 2.2 mg/dL N 1.9-2.7 1 finding [address] [place] [address] [phone] Comp Metabolic 10/05/2018 [facility] Sodium 138 mmol/L N 135- 145 Panel [address] [place] [address] [phone] Potassium 4.1 mmol/L N 3.5-5.0 Chloride 105 [...] Egfr Non- 62.0 >60 Egfr 75.1 >60 2 Laboratory test 10/05/2018 [facility] Troponin-I (TnI) 0.01 ng/ mL <0.[address] [place] [address] [phone] Magnesium 2.2 mg/dL N 1.9-2.7 4 Laboratory test 05/30/2018 [facility] Hemoglobin A1c 5.0 % N 4.0-5.[address] (Glyco HGB) [place] [address] [phone] Lipid Panel - 05/30/2018 [facility] Creatine 100 U/L N 10-[address] Kinase(CK) [place] [address] [phone] Laboratory test 05/30/2018 [facility] TSH (Thyroid 2.82 N 0.34 -5.[address] Stim Horm) mcIU/[place] [address] [phone] Magnesium 1.9 mg/dL N 1.9-2.7 8 D Dimer Quantitative < 200 ng/mL N Less Than 230 9 Amylase 110 U/L High 29-103 10 GGTP 30 U/L N 9-64.0 11 Total Bilirubin 0.60 mg/dL N 0.2-1.0 Erythrocyte Sed Rate 35 mm/Hr High 0-20 12 CRP High Sensitivity 4.59 mg/L High <2.00 13 Comp Metabolic Panel 05/30/2018 [facility] Sodium 140 mmol/L N 135-[address] [place] [address] [phone] Potassium 4.1 mmol/L N 3.5-5.0 Chloride 101 [...] Non- 68.0 >60 Egfr 82.3 >60 14 Lipid Profile 05/30/2018 [facility] Triglycerides 123 mg/dL 15 (Trig/Chol/HDL) [address] [place] [address] [phone] Cholesterol 192 mg/dL 16 HDL Cholesterol 48.3 mg/dL 17 LDL Cholesterol 119 mg/dL 18 1 3 w 2 Because ethnic data is not always readily [...] 15-29 5 Kidney failure <15 (or dialysis) 3 Troponin-I testing on Plasma Separator Tubes (PST) has a known false positive rate of 0.20-0.40%. All positive troponins reflex immediately to secondary confirmatory testing. Using the [employer] DxI 800 Access Immunoassay systems, the 99th percentile upper reference limit was demonstrated to be < 0.03 ng/mL. 4 3 w 5 Therapeutic target for the treatment of diabetes mellitus patients is <7% HBA1C, and in selective patients <6.0%. Please refer to [place] Diabetes Association diabetic care guidelines for further information. 6 FASTING Copy Result to: ANA ANAYA ([id number]) 7 FASTING Copy Result to: ANA ANAYA ([id number]) 8 FASTING Copy Result to: ANA ANAYA ([id number]) 9 Please note: The following may produce a false positive D Dimer test: - Rheumatoid factor greater than 60 IU/ml - Plasma hemoglobin greater than 0.05 gm/dl - Bilirubin greater than 50 mg/dl - Lipids greater than 1000 mg/dl - FDP greater than 20 ug/ml 10 FASTING Copy Result to: ANA ANAYA ([id number]) 11 FASTING Copy Result to: ANA ANAYA ([id number]) 12 FASTING Copy Result to: ANA ANAYA ([id number]) 13 FASTING Copy Result to: ANA ANAYA ([id number]) 14 Because ethnic data is not always [...] 15-29 5 Kidney failure <15 (or dialysis) 15 Desirable: <150 Borderline High: 150-199 High: 200-499 Very High: >500 16 Desirable: <200 Borderline High: 200-239 High: >239 17 Low: <40 Desirable: 40-60 High: >60 18 Desirable: <100 Near Optimal: 100-129 Borderline High: 130-159 High: 160-189 Very High: >189 Procedures Date Code Description Status 10/05/2018 05151 EKG Tracing & Interpretation Completed 09/03/2018 63478 Treadmill Interp/Report Only Completed 09/03/2018 92455 Stress Test Supervsn W/Out I/R Completed 08/30/2018 28900 EKG Tracing & Interpretation Completed 07/07/2018 01245 Holter Monitor Review (24 hr)dr review & interp only Completed 07/02/2018 93490 ECG Monitor/Recording W/Visual Superimposition Scanning Completed 07/02/2018 73981 ECG Monitor/Recording W/Visual Superimposition Scanning Completed 06/27/2018 01190 ECHO Transthoracic, Real-Time 2D With Doppler And Color Completed Flow 06/27/2018 17971 ECHO Transthoracic, Real-Time 2D With Doppler And Color Completed Flow 06/22/2018 90719 Polysomnography Sleep Staging 4+ Parameters W/Cpap Completed 05/28/2018 81531 EKG Tracing & Interpretation Completed 02/22/2018 74588 EKG, Interpretation Only Completed 09/26/2017 18945 Treadmill Interp/Report Only Completed 09/26/2017 52101 Stress Test Supervsn W/Out I/R Completed 09/26/2017 53368 EKG, Interpretation Only Completed 01/17/2017 21303 Anoscopy Completed Encounters Type Date Location Provider Dx Diagnosis Office Visit 09/04/2018 [facility] R10.13 Epigastric pain 10:00a [facility] John M.D. 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 unspecified Hospitalists K21.9 Gastro-esophageal reflux disease without esophagitis I10 Essential (primary) hypertension G47.33 Obstructive sleep apnea (adult) (pediatric) Office Visit 09/01/2018 10:04a [facility] Ivana Camilo7.9 Chest pain , Assoc,pc N.P. unspecified Hospitalists K21.9 Gastro-esophageal reflux disease without esophagitis I10 Essential (primary) hypertension G47.33 Obstructive sleep apnea (adult) (pediatric) Office Visit 08/31/2018 10:04a [facility] Sujatha R07.9 Chest pain, Assoc,pc Rooth, DO unspecified Hospitalists Office Visit 08/30/2018 11:00a [facility] Domi S. G47.33 Obstructive sleep Raimundo, N.P. apnea (adult) (pediatric) R00.2 Palpitations R07.9 Chest pain, unspecified I10 Essential (primary) hypertension R06.02 Shortness of breath Z68.38 Body mass index (BMI) 38.0-38.9, adult Office Visit 07/18/2018 9:30a [facility] Domi S. G47.33 Obstructive sleep Raimundo, N.P. 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 E66.01 Morbid ( severe) Raimundo N.P. obesity due to excess calories R07.9 Chest pain, unspecified K80.20 Calculus of gallbladder w/o cholecystitis w/o obstruction I10 Essential (primary) hypertension Z68.38 Body mass index (BMI) 38.0-38.9, adult Office Visit 05/28/2018 3:00p [facility] Perry Jefferson G47.33 Obstructive sleep Elba Swann apnea (adult) (pediatric) E66.01 Morbid (severe) obesity due to excess calories R07.9 Chest pain, unspecified K80.20 Calculus of gallbladder w/o cholecystitis w/o obstruction I10 Essential (primary) hypertension R00.2 Palpitations E87.6 Hypokalemia K21.9 Gastro-esophageal reflux disease without esophagitis Office Visit 04/19/2018 2:30p [facility] G47.33 Obstructive sleep [facility] MD Beba apnea (adult) [facility] (pediatric) R53.83 Other fatigue E66.01 Morbid (severe) obesity due to excess calories Z68.41 Body mass index (BMI) 40.0-44.9, adult Office Visit 03/06/2018 11:59a [facility] Galen R07.9 Chest pain, Assoc,pc Josephine PA unspecified Hospitalists R94.5 Abnormal results of liver function studies K80.20 Calculus of gallbladder w/o cholecystitis w/o obstruction Office Visit 02/21/2018 1:23p [facility] Galen R07.9 Chest pain, Assoc,pc Josephine PA unspecified Hospitalists R06.02 Shortness of breath Office Visit 09/26/2017 1:18p [facility] Charis Wendy, I10 Essential Assoc,rissa Arreola (primary) Hospitalists hypertension E66.9 Obesity, unspecified R07.9 Chest pain, unspecified Z68.41 Body mass index (BMI) 40.0-44.9, adult Office Visit 09/25/2017 [facility] Bahgat I10 Essential 1:17p Assoc,pc JARETH Michael (primary) Hospitalists hypertension E66.9 Obesity, unspecified R07.9 Chest pain, unspecified Z68.41 Body mass index (BMI) 40.0-44.9, adult Office Visit 01/17/2017 8:30a Surgical Nomi S. K61.1 Rectal abscess [facility] MD Amy K62.5 Hemorrhage of anus and rectum K64.0 First degree hemorrhoids Office Visit 09/22/2009 1:45a [facility] Wilfrido Maldonado, 786.59 Pain Chest Assoc,pc MMirlande Other Hospitalists 780.2 Syncope & Collapse 401.9 Hypertension Unspec 278.00 Obesity Unspec Office Visit 09/21/2009 2:15a [facility] Radhames Ochoa, 786.50 Pain Chest Assoc,pc MMirlande Unspec Hospitalists Plan of Treatment Future Appointment(s):10/11/2019 11:00 am - Melida Linares DNP, RN, SERVICE CAR OPERATOR-BC at [facility]11/07/2018 3:40 pm - Perry Swann M.D. at [facility]35/06/2019 2:30 pm - Ez Munoz M.D. at [facility]10/09/2018 - Melida Linares DNP, RN, [facility]-BCG47.33 Obstructive sleep apnea (adult) (pediatric)Comments:Sleep apnea - 2009 and was diagnosed with severe obstructive sleep apnea AHI 99/hour, O2 ryne 57%.On BiPAP AHI 0.9/hourFollow up:1 yearRecommendations:Continue PAP device, Benefitting and compliant with treatment. Call us when you want an on-line prescription renewal. Cleaning Wipe off mask daily (baby wipe-no [...] if you are experiencing problems please call for an appointment. If you have any further questions, please call the [facility] at [phone].
--- OUTSIDE RECORDS SUMMARY | 2018-10-22 04:46 | XMS REPORT | Continuity of Care Document ---
:1965 External Reference #:[id number] Author Name Kash Bradford Care Team Providers Name Role Phone Ana Anaya MD Primary Care Physician Unavailable Payers Date Identification Numbers Payment Provider Subscriber Policy Number: [id number] BS Facets Sirathorn Balakula PayID: [id number] [address] [address] [place] [address] Expires: 2018 Policy Number: [id number] BS Facets Sirathorn Balakula PayID: [id number] [address] [address] [place] [address] Advance Directives Description No Information Available Problems Description No Information Family History Date Family Member(s) Observation Comments Father due to MVA () - at 29 y.o. 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 20Meq Tablets ER Metamucil 1 tsp by mouth Perry Jefferson 05/28/2018 daily mixed with Elba Swann water or juice Bipap for use while Won Ibarra, 09/28/2017 Device sleeping M.DWendy Aspirin Adult Low 1 by mouth every Unknown Dose day 81mg Tablets Irbesartan Take 1 Tablet By Unknown 75mg Tablets Mouth Every Day For High Blood Pressure Vitamin E 1 tab by mouth Unknown 400Unit daily Capsules Omeprazole 1 cap by mouth Ana Anaya MD 20mg daily Capsules DR Callaway place one tablet 25tabs Domi Eubanks, 0.4mg Tablets under the tongue N.P. Sub as needed for chest pain, may repeat Spironolactone/Hydroc Take 1 Tablet By Unknown hlorothiazide Mouth Every Day 25-25mg For Blood Tablets Pressure Vitamin C 1 by mouth every Unknown 125mg day Chewtabs Amlodipine Besylate 1 by mouth every Unknown day 10mg Tablets History Medications Metoprolol Succinate ER 1/2 tab [...] Tablets prior to meakls for weight loss Aspirin Low Dose Take 1 Tablet By Unknown - 81mg Mouth Every Day 05/15/[address] Marie Free & 1 tablespoon a day Unknown - Natural mixed w/ water 05/16/2018 43% Powder Emergen-C Immune 9.3g Unknown - Packet 05/16/2018 Immunizations Description No Information Available Vital Signs Date Vital Result Comment 09/04/2018 9:48am Height 67 inches 5'7" Weight [...] Result H/L Range Note Laboratory test 05/30/2018 [facility] Hemoglobin A1c 5.0 % N 4.0-5.6 1 finding 101 (Glyco HGB) [place] [address] [phone] Lipid Profile 05/30/2018 [facility] Triglycerides 123 mg/dL 2 (Trig/Chol/HDL) [place] [address] [phone] Cholesterol 192 mg/dL 3 HDL Cholesterol 48.3 mg/dL 4 LDL Cholesterol 119 mg/dL 5 Lipid Panel - 05/30/2018 [facility] Creatine 100 U/L N 10-223 6 JFM Kinase(CK) [place] [address] [phone] Laboratory test 05/30/2018 [facility] TSH (Thyroid 2.82 N 0.34 -5.[address] Stim Horm) mcIU/[place] [address] [phone] Magnesium 1.9 mg/dL N 1.9-2.7 8 D Dimer Quantitative < 200 ng/mL N Less Than 230 9 Amylase 110 U/L High 29-103 10 GGTP 30 U/L N 9-64.0 11 Total Bilirubin 0.60 mg/dL N 0.2-1.0 Erythrocyte Sed Rate 35 mm/Hr High 0-20 12 CRP High Sensitivity 4.59 mg/L High <2.00 13 Comp Metabolic Panel 05/30/2018 [facility] Sodium 140 mmol/L N [address] [place] [address] [phone] Potassium 4.1 mmol/L N 3.5-5.0 Chloride 101 [...] in selective patients <6.0%. Please refer to [place] diabetic care guidelines for further information. 2 Desirable: <150 Borderline High: 150-199 High: 200-499 Very High: >500 3 Desirable: <200 Borderline High: 200-239 High: >239 4 Low: <40 Desirable: 40-60 High: >60 5 Desirable: <100 Near Optimal: 100-129 Borderline High: 130-159 High: 160-189 Very High: >189 6 FASTING Copy Result to: ANA ANAYA ([id number]) 7 FASTING Copy Result to: ANA ANAYA ([id number]) 8 FASTING Copy Result to: ANA ANAYA ([id number]) 9 Please note: The following may produce a false positive D Dimer test: - Rheumatoid factor greater than 60 IU/ml - Plasma hemoglobin greater than 0.05 gm/dl - Bilirubin greater than 50 mg/dl - Lipids greater than 1000 mg/dl - FDP greater than 20 ug/ml 10 FASTING Copy Result to: ANA ANAYA ([id number]) 11 FASTING Copy Result to: ANA ANAYA ([id number]) 12 FASTING Copy Result to: ANA ANYAA ([id number]) 13 FASTING Copy Result to: ANA ANAYA ([id number]) 14 Because ethnic data is not always [...] (or dialysis) Procedures Date Code Description Status 09/03/2018 59353 Treadmill Interp/Report Only Completed 09/03/2018 42026 Stress Test Supervsn W/Out I/R Completed 08/30/2018 88946 EKG Tracing & Interpretation Completed 07/07/2018 41709 Holter Monitor Review (24 hr)dr review & interp only Completed 07/02/2018 13130 ECG Monitor/Recording W/Visual Superimposition Scanning Completed 07/02/2018 61271 ECG Monitor/Recording W/Visual Superimposition Scanning Completed 06/27/2018 94449 ECHO Transthoracic, Real-Time 2D With Doppler And Color Completed Flow 06/27/2018 59579 ECHO Transthoracic, Real-Time 2D With Doppler And Color Completed Flow 06/22/2018 61510 Polysomnography Sleep Staging 4+ Parameters W/Cpap Completed 05/28/2018 78780 EKG Tracing & Interpretation Completed 02/22/2018 27300 EKG, Interpretation Only Completed 09/26/2017 40365 Treadmill Interp/Report Only Completed 09/26/2017 90910 Stress Test Supervsn W/Out I/R Completed 09/26/2017 32802 EKG, Interpretation Only Completed 01/17/2017 14609 Anoscopy Completed Encounters Type Date Location Provider Dx Diagnosis Office Visit 09/04/2018 [facility] Solo Stokes R10.13 Epigastric pain 10:00a Of Venita John M.D. 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 unspecified Hospitalists K21.9 Gastro-esophageal reflux disease without esophagitis I10 Essential (primary) hypertension G47.33 Obstructive sleep apnea (adult) (pediatric) Office Visit 09/01/2018 10:04a [facility] Sue Echeverria, R07.9 Chest pain , Assoc,pc N.P. unspecified Hospitalists K21.9 Gastro-esophageal reflux disease without esophagitis I10 Essential (primary) hypertension G47.33 Obstructive sleep apnea (adult) (pediatric) Office Visit 08/31/2018 10:04a [facility] Sujatha R07.9 Chest pain, Assoc,pc Rooth, DO unspecified Hospitalists Office Visit 08/30/2018 11:00a [facility] Domi S. G47.33 Obstructive sleep Raimundo, N.P. apnea (adult) (pediatric) R00.2 Palpitations R07.9 Chest pain, unspecified I10 Essential (primary) hypertension R06.02 Shortness of breath Z68.38 Body mass index (BMI) 38.0-38.9, adult Office Visit 07/18/2018 9:30a [facility] Domi S. G47.33 Obstructive sleep Raimundo, N.P. apnea (adult) (pediatric) R00.2 Palpitations R07.9 Chest pain, unspecified I10 Essential (primary) hypertension Office Visit 07/11/2018 [facility] G47.33 Obstructive sleep 2:00p [facility] Linares RN, apnea (adult) [facility] (pediatric) Z68.38 Body mass index (BMI) 38.0-38.9, adult Office Visit 06/13/2018 8:30a [facility] Domi S. E66.01 Morbid ( severe) Raimunod, N.P. obesity due to excess calories R07.9 Chest pain, unspecified K80.20 Calculus of gallbladder w/o cholecystitis w/o obstruction I10 Essential (primary) hypertension Z68.38 Body mass index (BMI) 38.0-38.9, adult Office Visit 05/28/2018 3:00p [facility] Perry Jefferson G47.33 Obstructive sleep Li Swann. apnea (adult) (pediatric) E66.01 Morbid (severe) obesity due to excess calories R07.9 Chest pain, unspecified K80.20 Calculus of gallbladder w/o cholecystitis w/o obstruction I10 Essential (primary) hypertension R00.2 Palpitations E87.6 Hypokalemia K21.9 Gastro-esophageal reflux disease without esophagitis Office Visit 04/19/2018 2:30p [facility] G47.33 Obstructive sleep [facility] MD Beba apnea (adult) News Clerk (pediatric) R53.83 Other fatigue E66.01 Morbid (severe) obesity due to excess calories Z68.41 Body mass index (BMI) 40.0-44.9, adult Office Visit 03/06/2018 11:59a [facility] Galen R07.9 Chest pain, Assoc,JARETH Gruber unspecified Hospitalists R94.5 Abnormal results of liver function studies K80.20 Calculus of gallbladder w/o cholecystitis w/o obstruction Office Visit 02/21/2018 1:23p [facility] [place]en R07.9 Chest pain, Assoc,JARETH Gruber unspecified Hospitalists R06.02 Shortness of breath Office Visit 09/26/2017 1:18p [facility] Charis Wendy, I10 Essential Assoc,rissa Arreola (primary) Hospitalists hypertension E66.9 Obesity, unspecified R07.9 Chest pain, unspecified Z68.41 Body mass index (BMI) 40.0-44.9, adult Office Visit 09/25/2017 [facility] I10 Essential 1:17p Assoc,JARETH Martins (primary) Hospitalists hypertension E66.9 Obesity, unspecified R07.9 Chest pain, unspecified Z68.41 Body mass index (BMI) 40.0-44.9, adult Office Visit 01/17/2017 8:30a [facility] Nomi SWendy K61.1 Rectal abscess [facility] MD Amy K62.5 Hemorrhage of anus and rectum K64.0 First degree hemorrhoids Office Visit 09/22/2009 1:45a [facility] Wilfrido Maldonado, 786.59 Pain Chest Assoc,rissa Arreola Other Hospitalists 780.2 Syncope & Collapse 401.9 Hypertension Unspec 278.00 Obesity Unspec Office Visit 09/21/2009 2:15a [facility] Radhames Gabriela, 786.50 Pain Chest Assoc,rissa Arreola Unspec Hospitalists Plan of Treatment Future Appointment(s):10/05/2018 12:00 pm - Domi Eubanks N.Torres. at [facility] Xmeqaugyqq30/29/2019 3:40 pm - Perry Swann M.D. at [facility] Oioisisudy32/ 30/2019 10:30 am - Melida Linares DNP, RN, ACCOUNTS RECEIVABLE PROCESSOR- at [facility]10/15/2018 2:30 pm - Ez Munoz M.D. at [facility]09/04/2018 - Solo John M.D.R10.13 Epigastric painFollow up:As needed
[2018-10-22 04:53] LABS: ABS Eosinophils 0.1 10^3/ul (0-0.6); ABS Lymphocytes 1.1 10^3/ul (1.0-4.8); ABS Monocytes 0.4 10^3/ul (0-0.8); ABS Neutrophils 3.5 10^3/ul (1.5-7.7); Eosinophil % 1.9 %; Hematocrit 38 % (42-52); Hemoglobin 12.6 g/dL (14.0-18.0); Lymphocyte % 22.1 %; Mean Corpuscular HGB Conc 33 g/dL (31-36); Mean Corpuscular Hemoglobin 28 pg (27-31); Mean Corpuscular Volume 86 fL (80-94); Mean Platelet Volume 8.2 fL (7.4-10.4); Platelet Count 235 10^3/uL (150-450); Red Blood Count 4.44 10^6 /uL (4.18-5.48); Red Cell Distribution Width 14 % (10.5-15); White Blood Count 5.1 10^3/uL (3.5-10.8)
[2018-10-22 05:00] LABS: INR 0.99 (0.82-1.09)
[2018-10-22 05:09] LABS: Albumin 4.5 g/dL (3.2-5.2); Albumin/Globulin Ratio 1.3 (1-3); Calcium 9.4 mg/dL (8.6-10.3); EGFR Non-African American 64.4 (>60); Globulin 3.4 g/dL (2-4); Potassium 3.6 mmol/L (3.5-5.0); Total Bilirubin 0.6 mg/dL (0.2-1.0); Total Protein 7.9 g/dL (6.4-8.9)
--- NOTE | 2018-10-22 07:13 | ED ---
Progress - Progress Note Progress Note: Patient is recieved as a sign out from Dr. Nice at 0700 shift change on to Dr. Macedo Course/Dx - Diagnoses Provider Diagnoses: Chest pain Discharge - Sign-Out/Discharge Signing out patient TO: Lio Macedo Receiving patient FROM: Faby Nice - Discharge Plan Condition: Stable Referrals: Marcos Doan MD [Primary Care Provider] - - Attestation Statements Document Initiated by Scribe: Yes
--- NOTE | 2018-10-22 12:53 | ED ---
Progress - Progress Note Progress Note: Patient is being received from Dr. Nice to Dr. Macedo at 07:38 10/22/18. Consult with Dr. Swann at 08:27: recommends attempt to get coronary angiogram. 08:38: Discussed consult with patient as well as where coronary angiogram was done. 10 :09: called hospitalist, Dr. Pendleton, Dr. Pendleton, agreed to review patient's case. 12:46: Patient claims to have no more CP and wants to be discharged. 12:53 : Patient will be discharged to home. Re-Evaluation - Re-Evaluation First Eval Re-Evaluation Time: 08:38 Comment: Discussed consult with patient as well as where coronary angiogram was done. Second Eval Re-Evaluation Time: 01:26 Change: Improved Comment: 12:46: Patient claims to have no more CP and wants to be discharged. Course/Dx - Course Course Of Treatment: Mr. Duckworth presented during the night with chest pain. He's been being worked up for chest pain for several months. He's had a negative stress test. He apparently had a coronary angiogram at [facility] last Monday but does not know the results. When I come on shift he' s been pain free and is awaiting a second troponin. Second troponin is 0.01 compared to the first that was 0.00. I spoke with Dr. Swann who recommended admission with a concern that there were some calcifications in the coronary arteries on a pulmonary embolism CTA October 13. He felt that if we were able to get the result of the recent coronary artery angiogram and it was negative the patient could go home. [facility] stated that the study had not been read yet and that a report would be available later in the afternoon. I asked the hospitalist service to evaluate him for admission. They did come down and evaluate the patient who then stated that he was not willing to stay in the hospital. We will recommended to him that he stay until we have more information but as he has not had any chest pain for many hours he was not willing to stay. He was discharged with chest pain instructions and recommendation to follow-up with Dr. Swann as soon as possible and that he was welcome to return at any time if he was symptomatic or not. After discharge a report was faxed to us from [facility] reporting that he had a 70% occlusion of his LAD. I spoke with Ebony Eubanks who is arranging a cardiac catheterization for tomorrow. - Diagnoses Provider Diagnoses: Chest pain - Provider Notifications Discussed Care Of Patient With: Perry Swann Time Discussed With Above Provider: 08:27 Instructed by Provider To: Other - Consult with Shree at 08:27: recomends attempt to get coronary CT exam. 10:09: called hospitalist, Dr. Pendleton, Dr. Pendleton, agreed to review patient's case. - Critical Care Time Critical Care Time: 30-74 min Discharge - Sign-Out/Discharge Documenting (check all that apply): Patient Departure - discharge Patient Received Moderate/Deep Sedation with Procedure: No - Discharge Plan Condition: Stable Disposition: HOME Referrals: Perry Swann MD [Medical Doctor] - As Soon As Possible Marcos Doan MD [Primary Care Provider] - 3 Days Additional Instructions: Return to the Emergency Department if you change your mind about being admitted. Follow up with Dr. Swann, dyer helper, as soon as possible. - Billing Disposition and Condition Condition: STABLE Disposition: Home - Attestation Statements Document Initiated by Scribe: Yes Documenting Scribe: Oscar Fajardo Provider For Whom Shelley is Documenting (Include Credential): Lio Macedo MD Scribe Attestation: I, Oscar Fajardo, scribed for Lio Macedo MD on 10/22/18 at 1656. Scribe Documentation Reviewed: Yes Provider Attestation: The documentation as recorded by the scribe, Oscar Fajardo accurately reflects the service I personally performed and the decisions made by me, Lio Macedo MD Status of Scribe Document: Viewed
[2018-10-22 13:06] VITALS: BP 122/80
--- NOTE | 2018-10-22 23:09 | CONS ---
[facility] MEDICINE CONSULTATION REPORT: DATE OF CONSULT: 10/22/18 - EMERGENCY DEPT PROVIDER: Milton Real NP ATTENDING PHYSICIAN: Dr. Macedo. CONSULTING PHYSICIAN: Rosie Reed MD (dictated by Milton Real NP) REASON FOR CONSULT: Chest pain. HISTORY OF PRESENT ILLNESS: Mr. Duckworth is a 53-year-old male with a past medical history significant for chest pain, hypertension, sleep apnea, GERD, obesity and gallstones who presented to the emergency room with complaints of chest pain that woke him from sleep at 3 a.m. The patient reports that he woke with left- sided chest pain and racing heart. He reports that lasted approximately 50 minutes and did not subside, so he called EMS. The patient reports that he took nitro sublingual without relief. He reports that he had a total of 5 nitro sublingual with some relief, but not complete relief of his chest pain. He reports that his pain went from a 7 to 4 after the nitro. The patient denies any exacerbation of chest pain with exertion. He denies any radiation. He denies any nausea, vomiting, diaphoresis associated with the chest pain. He reports that his pain is a pressure in his left chest. He reports that it lasted approximately a total of 50 minutes. He also did have some mild burning in his esophagus. On the emergency room, the patient had routine lab work drawn. He had 2 negative troponins. He was given morphine and Maalox with lidocaine. He reports that after receiving those medications his pain subsided and he has had no further episodes of chest pain. The patient has been seen by Dr. Swann and has been worked up as an outpatient with Dr. Swann. He has recently had a cardiac angiogram completed at [facility], which results are not available at this time. He also recently had an echo on 06/27/18, at that time, his EF was shown to be 55% to 60%. While in the emergency room, the patient had routine lab work drawn. He had 2 negative troponins and his chest pain completely subsided. The patient is requesting to go home and is refusing to be admitted to the hospital. PAST MEDICAL HISTORY: 1. Chest pain. 2. Hypertension. 3. Sleep apnea. 4. GERD. 5. Obesity. 6. History of gallstones. PAST SURGICAL HISTORY: Abdominal mass removed. MEDICATIONS: Home medications include, 1. Amlodipine 10 mg p.o. daily. 2. Spironolactone 25 mg p.o. daily. 3. Omeprazole 40 mg p.o. daily. 4. Irbesartan 75 mg p.o. daily. 5. Aspirin 81 mg p.o. daily. 6. Vitamin E 400 mg p.o. daily. 7. Vitamin C 500 mg p.o. daily. 8. Psyllium p.o. daily. 9. Nitro sublingual 0.4 mg q.5 minutes as needed for chest pain. ALLERGIES: To LISINOPRIL and PHENTERMINE. FAMILY HISTORY: Mother at the age of 72 of an [place]. No reported history of diabetes or cancer in the family. SOCIAL HISTORY: The patient denies tobacco, alcohol, or illicit drug use. 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 He is . He lives with his . His surrogate decision maker in the event he is unable to make his own decision is his . He is a full code. REVIEW OF SYSTEMS: The patient denies any fever or unintended weight loss. He denies any edema. He does report left-sided chest pain and palpitations that lasted approximately 50 minutes with chest pain lasting a total of approximately 50 minutes with some esophageal upper epigastric burning. The patient denies any cough, hemoptysis or shortness of breath, nausea, vomiting or diarrhea. Denies any diaphoresis associated with chest pain. He denies any hematuria, dysuria, focal weakness or sensory loss. Denies any visual complaints, lightheadedness, dizziness. Denies any arthralgias, myalgias, rashes, lesions or open sores, psychosis, or anxiety. PHYSICAL EXAM: General: At this time, Mr. Duckworth is a 53-year-old male who is sitting comfortably on the stretcher. He is in no acute distress. Vital Signs: Blood pressure 122/75, heart rate 64, respirations are 13, O2 saturation 100% on room air, temperature was 98.5. HEENT: Head is atraumatic, normocephalic. Eyes: EOMS are intact. Sclerae anicteric and not pale. Oral mucosa appeared to be moist. Neck is supple. Lungs are clear to auscultation bilaterally. No wheezes, rales or rhonchi. Cardiac S1 and S2. Regular rate and rhythm. No murmurs, rubs or gallops. Abdomen: Soft and nontender. Bowel sounds are present x4. He has no CVA tenderness. Musculoskeletal: He is able to move all 4 extremities with 5/5 strength. There is no clubbing or cyanosis. Skin is intact. No rashes, lesions or open sores. Neurologic: He is awake, alert, oriented x3. Speech is clear. Thought process is intact. No gross focal deficits. Psych: The patient is alert and oriented x3, calm and cooperative. LABORATORY DATA/DIAGNOSTIC STUDIES: WBCs are 5.11, RBCs 4.44, hemoglobin 12.6, hematocrit is 38, platelet count is 235. INR was 0.99. APTT was 29.0. Sodium 135, potassium 3.6, chloride 99, carbon dioxide 20, anion gap was 8, BUN was 25 , creatinine 1.19. Glucose 112. Calcium 9.4, magnesium 2.0. Total bilirubin 0.60, ASTs were 18, ALTs were 18, alkaline phosphatase was 49. Troponin 0.00 and 0.01. He had an electrocardiogram, which showed sinus rhythm at a rate of 86. He does have T-wave inversions in V1, 3 flat Ts in aVF. ASSESSMENT AND PLAN: Mr. Duckworth is a 53-year-old male with a past medical history significant for chest pain, hypertension, GERD, obesity, history of gallstones and sleep apnea who presented to the emergency room with complaints of chest pain. He is followed by Dr. Swann as outpatient[facility] was asked to see the patient for admission. The patient is refusing admission at this time. Our recommendations are as follows: 1. Chest pain. I recommend that the patient come in for further evaluation of his chest pain. The patient is refusing to be admitted at this time. I have discussed this with Dr. Macedo in the emergency room and has recommended that the patient should sign out AMA as we currently do not have complete data on recent testing of his recent cardiac CT to make an adjudicated decision on the safe discharge at this time. The patient has been informed that the results of his cardiac CT are not available at this time. Again, I have offered to admit the patient to rule out acute coronary syndrome for his chest pain, but the patient is currently refusing and I recommend that the patient sign out against medical advice. I have discussed with Dr. Macedo the patient's refusal for admission and the recommendation that the patient sign out AMA due to incomplete testing and lack of study reports. TIME SPENT: Time spent on this consultation was 45 minutes; greater than half that time was spent at the bedside reviewing events leading thus far to his hospitalization, performing physical exam, and reviewing my plan of care. I would recommend that the patient return to the emergency room for any chest pain, shortness of breath or any changes in his condition. I have discussed with my attending Dr. Rosie Reed; she is in agreement with my plan. MILTON REAL NP [id number]/CPS #: [id number] MTDD
== END 2018-10-22 13:05 | disposition home or self-care (01) ==
LOC: ED 04:19
DX: R07.9 Chest pain, unspecified (principal); I10 Essential (primary) hypertension; Z87.891 Personal history of nicotine dependence; Z79.899 Other long term (current) drug therapy; Z88.8 Allergy status to other drugs, medicaments and biological substances; Z83.3 Family history of diabetes mellitus; Z82.49 Family history of ischemic heart disease and other diseases of the circulatory system
CPT/HCPCS: 36415; 80053; 82550; 83735; 84484; 85025; 85610; 85730; 93005; 96374; 96375; 99284; A9270-GY; J0780; J2270

== ENCOUNTER → 2018-10-25 10:08 | Day surgery (SDC) | payer BC ==
[~2018-10-25 10:08] MED LIST changes: +Adenosine* 3 MG/ML VIAL ONE; +Heparin 2 UNITS/ML IVPREMIX* 3,000 UNIT/1,500 ML BAG IV ONE; +Heparin(*) 1000 UNIT/ML 10 ML VIAL CATH LAB IV ONE; +Iodixanol 320 (CONTRAST) 100 ML SDV ONE; +Iohexol 350 (CONTRAST) 200 ML MDV IV ONE; -Ketorolac INJ* 30 MG/ML 1 ML VIAL IV PUSH ONE; +Lidocaine 1% INJ* 10 MG/ML 30 ML SDV ONE; +Midazolam* 1 MG/ML 5 ML VIAL (5 MG) ONE; +NS 0.9% 1000 ML** 1,000 ML IV SCH; +VERAPAMIL 2.5 MG/ML 2 ML VIAL ** 5 mg/2 ml ONE; +fentaNYL* 50 MCG/ML 2 ML VIAL (100 MCG VIAL) ONE; +nitroGLYCERIN DRIP* 25,000 MCG/250 ML BTL ONE
[2018-10-25 15:32] VITALS: BP 115/76
--- NOTE | 2018-10-26 16:18 | CATH ---
CC: Dr. Doan; Dr. Swann * CARDIAC CATHETERIZATION REPORT: DATE OF PROCEDURE: 10/25/18 - [facility] CATH PRIMARY: Dr. Doan. BILLIARD TABLE REPAIRER: Dr. Swann. PROCEDURE: Right radial artery access, bilateral selective cineangiography, FFR evaluation, LAD. HISTORY: A 53-year-old male with atypical angina occurring both at random, as well as with moderately strenuous exertion, on only calcium gilmar therapy. Stress imaging was asymptomatic, scan was low risk in August, LVEF normal. Nonetheless, his symptoms have progressed to the point where he is having them almost daily. His pretest probability is intermediate. A CT angiogram in [place] reported 3- vessel disease, he was referred for coronary angiography. PROCEDURE ACCESS: Right radial artery sheath 6-F Slender. MEDICATION: Subcu lidocaine, IV Versed, IV fentanyl, heparin 3000 units, nitroglycerin 300 mcg, verapamil 3 mg IA, heparin 2000 units IV, IC nitroglycerin 100 mcg, IC adenosine boluses used for LAD FFR evaluation. DIAGNOSTIC CATHETER: 5-F TIG 4, which was also used for FFR evaluation of the LAD with a DossierView 14 Comet pressure wire. HEMODYNAMICS: Initial AO 102/70, final BP 132/76. FFR across both mid LAD lesions, the more proximal more severe one, though yet intermediate, and the lesser second stenosis was 0.78 to 0.81 with 100 mcg of IC adenosine. With 150 mcg of IC adenosine across both lesions, FFR was 0.79 to 0.8. The wire was then pulled back straddling only the proximal stenosis, with 150 mcg of IC adenosine. FFR was 0.83. Left Main: The left main is large, normal. LAD: The LAD is a moderate, has mild calcification with scattered mild luminal irregularity. The LAD supplies a large diagonal, after which there is a relatively short 50% to 60% stenosis, followed by reconstitution after which the LAD supplies 2 septals, the LAD continuation has a 30% stenosis, then supplies a moderate diagonal, distal LAD ends at the apex. First FFR was measured across both of these lesions, the third FFR only across the proximal one, which angiographically is more severe. Circumflex: The circumflex is moderate, not dominant. There is a moderate ramus, which has luminal irregularity, the second marginal has proximal 40% to 50% stenosis, is less than 2 mm in diameter, circumflex ends with a small posterolateral. RCA: Large, dominant, with a large PDA with minor proximal luminal irregularity , followed by large posterolateral and then a smaller posterolateral. After FFR evaluation of the LAD, anatomy is unchanged. CONCLUSION: 1. Two-vessel disease involving mid LAD with intermediate stenoses, borderline FFR, and moderate stenosis at the origin of a small marginal branch. Given the absence of ACS, only 1 med antianginal therapy, recent negative stress testing, and borderline FFR values and no statin therapy, he was recommended to undergo medical management for coronary artery disease. If he has persisting documented ischemia, the LAD is suitable for percutaneous revascularization. 2. Angiographically much less severe coronary disease than suggested by CTA from [place] 3. Successful right radial artery access. 4. Atypical angina given the moderate LAD stenosis with borderline FFR. 5. Resting noncardiac chest pain would be within the differential. [id number] #: [id number] ANGEL
== END | disposition home or self-care (01) ==
LOC: CHICATH 10:08
PROVIDERS: ATTEND Internal Medicine Cardiovascular Disease
DX: I25.119 Atherosclerotic heart disease of native coronary artery with unspecified angina pectoris (principal); R06.02 Shortness of breath; R94.31 Abnormal electrocardiogram [ECG] [EKG]; R00.2 Palpitations; G47.33 Obstructive sleep apnea (adult) (pediatric); Z87.891 Personal history of nicotine dependence; I10 Essential (primary) hypertension
CPT/HCPCS: 93454; 99156; 99157; J0153; J1644; J2250; J3010

== ENCOUNTER 2019-05-20 17:39 | Observation (INO) | payer BC ==
[2019-05-20] MEDS ORDERED: Nitro 2% OINT* (Nitroglycerin) 1 INCH/PAK PAK TOPICAL ONE (18:19)
--- NOTE | 2019-05-20 18:25 | ED ---
HPI Chest Pain - HPI Summary HPI Summary: This pt is a 53 y/o male presenting to [facility] via EMS for sudden onset of chest pain. Pt reports he was driving when he suddenly began to experience mid chest pain radiating up to his throat and down right shoulder at about 1720. He describes chest pain as tightness and at onset he rated it 7/10 in severity. Additionally pt states feeling associated heart palpitations characterized as fast. Pt notes he called EMS and they administered 324 mg ASA and nitroglycerin x2 with relief. He states his chest pain lasted 10 -15 minutes and resolved after nitroglycerin. Denies fever, chills, SOB, dizziness, pain or swelling in legs. Denies erythema of eyes, sore throat, cough, abd pain, nausea, vomiting, dysuria, hematuria, myalgia, edema, rash. Pt reports 2 days of blood per rectum last week. PMHx: cardiac stent placed in January of 2019. His packaging operator is Dr. Swann. Pt has not had chest pain since stent was placed. His medications include Plavix and aspirin. Denies tobacco use. - History of Current Complaint Chief Complaint: EDChestWallPain Time Seen by Provider: 05/20/19 17:59 Hx Obtained From: Patient Onset/Duration: Started Hours Ago, Still Present Timing: Lasting Hours Initial Severity: Severe Current Severity: None Pain Intensity: 0 Pain Scale Used: 0-10 Numeric Chest Pain Location: Mid Sternal Chest Pain Radiates: Yes Chest Pain Radiates To:: Shoulder - right, Neck - throat Character: Tightness Aggravating Factor(s): Nothing Alleviating Factor(s): Nothing Associated Signs and Symptoms: Positive: Chest Pain, Palpitations. Negative: Dizziness, Shortness of Breath, Fever, Chills, Nausea, Cough, Abdominal Pain, Vomiting - Additional Pertinent History Primary Care Physician: [id number] - Allergy/Home Medications Allergies/Adverse Reactions: Allergies Allergy/AdvReac Type Severity Reaction Status Date / Time lisinopril Allergy Coughing Verified 11/13/18 10:48 phentermine Allergy dizziness, Verified 11/13/18 10:48 dry mouth SEASONAL ENVIRONMENTAL Allergy RUNNY Uncoded 11/13/18 10:48 ALLERGIES NOSE, WATERY EYES, CONGESTION PMH/Surg Hx/FS Hx/Imm Hx Endocrine/Hematology History: Denies: Hx Diabetes Cardiovascular History: Reports: Hx Angina, Hx Coronary Artery Disease, Hx Hypertension, Other Cardiovascular Problems/Disorders - cardiac stent Denies: Hx Hypercholesterolemia, Hx Myocardial Infarction, Hx Pacemaker/ICD, Hx Valvular Heart Disease Respiratory History: Reports: Hx Sleep Apnea Denies: Hx Asthma, Hx Chronic Obstructive Pulmonary Disease (COPD) History: Denies: Hx Renal Disease Sensory History: Denies: Hx Contacts or Glasses, Hx Hearing Aid Opthamlomology History: Denies: Hx Contacts or Glasses Psychiatric History: Denies: Hx Panic Disorder - Surgical History Surgical History: Yes Surgery Procedure, Year, and Place: REMOVE MASS ON SIDE OF ABDOMEN. Cardiac stent placed in January of 2019 Hx Anesthesia Reactions: No - Immunization History Date of Tetanus Vaccine: unk Date of Influenza Vaccine: none Infectious Disease History: No Infectious Disease History: Denies: Traveled Outside the [place] in Last 30 Days - Family History Known Family History: Positive: Cardiac Disease - mother had NC, Hypertension, Diabetes - Social History Alcohol Use: None Hx Substance Use: No Substance Use Type: Reports: None Hx Tobacco Use: No Smoking Status (MU): Former Smoker Review of Systems Negative: Fever, Chills Negative: Erythema Negative: Sore Throat Positive: Palpitations, Chest Pain Negative: Shortness Of Breath, Cough Gastrointestinal: Other - POSITIVE: blood per rectum Negative: Abdominal Pain, Vomiting, Nausea Negative: dysuria, hematuria Negative: Myalgia, Edema Negative: Rash Neurological: Other - NEGATIVE: dizziness All Other Systems Reviewed And Are Negative: Yes Physical Exam - Summary Physical Exam Summary: Constitutional: Well-developed, Well-nourished, Alert. (-) Distressed Skin: Warm, Dry HENT: Normocephalic; Atraumatic Eyes: Conjunctiva normal Neck: Musculoskeletal ROM normal neck. (-) JVD, (-) Stridor, (-) Tracheal deviation Cardio: Rhythm regular, rate normal, Heart sounds normal; Intact distal pulses; The pedal pulses are 2+ and symmetric. Radial pulses are 2+ and symmetric. (-) Murmur Pulmonary/Chest wall: Effort normal. (-) Respiratory distress, (-) Wheezes, (-) Rales Abd: Soft, (-) tenderness, (-) Distension, (-) Guarding, (-) Rebound Musculoskeletal: (-) Edema Lymph: (-) Cervical adenopathy Neuro: Alert, Oriented x3 Psych: Mood and affect Normal Triage Information Reviewed: Yes Vital Signs On Initial Exam: Initial Vitals Pulse Resp Pulse Ox 102 15 94 05/20/19 17:49 05/20/19 17:49 05/20/19 17:49 Vital Signs Reviewed: Yes Procedures - Sedation Patient Received Moderate/Deep Sedation with Procedure: No Diagnostics - Vital Signs Vital Signs Temp Pulse Resp BP Pulse Ox 05/20/19 17:56 101 24 148/93 97 05/20/19 17:50 98.1 F 102 19 148/93 97 05/20/19 17:49 102 15 94 - Laboratory Result Diagrams: 05/20/19 18:30 05/20/19 18:30 Lab Statement: Any lab studies that have been ordered have been reviewed, and results considered in the medical decision making process. - Radiology Chest XR Radiology Interpretation Completed By: Radiologist Summary of Radiographic Findings: pending official radiology report. - EKG 1802 Cardiac Rate: NL - at 98 bpm EKG Rhythm: Sinus Rhythm Summary of EKG Findings: EKG at 1802 shows normal sinus rhythm at a rate of 98 bpm. No STEMI. Chest Pain Course/Dx - Course Assessment/Plan: Pt is a 53 y/o male, with hx of cardiac stent, presenting to [facility] via EMS for sudden onset of chest pain. Pt reports he was driving when he suddenly began to experience mid chest pain radiating up to his throat and down right shoulder at about 1720. He describes chest pain as tightness and at onset he rated it 7/10 in severity. Additionally pt states feeling associated heart palpitations characterized as fast. Pt notes he called EMS and they administered 324 mg ASA and nitroglycerin x2 with relief. He states his chest pain lasted 10 -15 minutes and resolved after nitroglycerin. Pt did have 2 days of bleeding per rectum last week. Lab results remarkable for hemoglobin of 9.9, hematocrit of 32, creatinine of 1.18, glucose of 126. In the ED course the pt was given nitroglycerin ointment. Discussed the case with Dr. Chamorro, hospitalist, who accepted the pt for admission. Pt is hemodynamically stable and is currently on Plavix. - Diagnoses Provider Diagnoses: Anemia, Chest pain, unspecified, Rectal bleeding - Provider Notifications Discussed Care Of Patient With: Lorrie Chamorro - hospitalist Time Discussed With Above Provider: 19:17 Instructed by Provider To: Admit As Inpatient Discharge ED - Sign-Out/Discharge Documenting (check all that apply): Patient Departure [place] [facility] [place] Plan Condition: Stable Disposition: ADMITTED TO [facility] Referrals: Marcos Doan MD [Primary Care Provider] - - Attestation Statements Document Initiated by Scribe: Yes Documenting Scribe: Adilene Walker Provider For Whom Scribe is Documenting (Include Credential): Guzman Hoang MD Scribe Attestation: Adilene Vega, scribed for Guzman Hoang MD on 05/20/19 at 1850. Status of Scribe Document: Ready
[2019-05-20 18:41] LABS: ABS Eosinophils 0.1 10^3/ul (0-0.6); ABS Lymphocytes 0.7 10^3/ul (1.0-4.8); ABS Monocytes 0.4 10^3/ul (0-0.8); ABS Neutrophils 2.9 10^3/ul (1.5-7.7); Eosinophil % 1.6 %; Hematocrit 32 % (42-52); Hemoglobin 9.9 g/dL (14.0-18.0); Lymphocyte % 17.1 %; Mean Corpuscular HGB Conc 31 g/dL (31-36); Mean Corpuscular Hemoglobin 23 pg (27-31); Mean Corpuscular Volume 73 fL (80-94); Mean Platelet Volume 8.3 fL (7.4-10.4); Nucleated Red Blood Cells % 0.1; Platelet Count 286 10^3/uL (150-450); Red Blood Count 4.35 10^6 /uL (4.18-5.48); Red Cell Distribution Width 18 % (10-15); White Blood Count 4.1 10^3/uL (3.5-10.8)
[2019-05-20 18:43] LABS: INR 1.09 (0.82-1.09)
[2019-05-20 18:55] LABS: Albumin 4.3 g/dL (3.2-5.2); Albumin/Globulin Ratio 1.4 (1-3); BUN/Creatinine Ratio 16.9 (8-20); Calcium 9.3 mg/dL (8.6-10.3); EGFR African American 78.7 (>60); EGFR Non-African American 65.1 (>60); Potassium 4.2 mmol/L (3.5-5.0); Total Bilirubin 0.5 mg/dL (0.2-1.0); Total Protein 7.3 g/dL (6.4-8.9)
--- OUTSIDE RECORDS SUMMARY | 2019-05-20 19:30 | XMS REPORT | Continuity of Care Document ---
:1965 External Reference #:[id number] Author Name Domi Eubanks N.P. 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 Onset: 10/15/2018 Skin sensation disturbance Ez Munoz M.D. Onset: 10/15/2018 Social History Type Date Description Comments Sex Unknown Tobacco Use Start: Unknown Former Cigarette Smoked for 10 years, 1 End: Unknown Smoker ppd; quit in 1995 Smoking Status Reviewed: 04/26/19 Former Cigarette Smoked for 10 years, 1 Smoker ppd; quit in 1995 ETOH Use Denies alcohol use Tobacco Use Start: Unknown Patient is a former End: Unknown smoker Recreational Drug Use Denies Drug Use Exercise Type/Frequency Exercises regularly Pt participating in cardiac rehab 12/10/18 Allergies, Adverse Reactions, Alerts Active Allergies Reaction Severity Comments Date Lisinopril cough, trouble swallowing 11/29/2016 Phentermine dizzy and dry mouth 05/28/2018 Medications Active Medications SIG Qnty Indications Ordering Provider Date Amlodipine Besylate 1 by mouth every 30tabs Perry Jefferson 04/12/2019 5mg day Elba Swann Tablets Metoprolol Succinate 1 by mouth every 90tabs Perry Jefferson 04/12/2019 ER day Elba Swann 25mg Tablets ER 24HR Psyllium Fiber take 1 tab by 30caps Chao Gutierrez, 03/05/2019 0.52gm mouth daily GARRETT LAWRENCE Capsules Lipitor 1 by mouth every 90tabs Domi Eubanks, 02/01/2019 80mg Tablets day N.P. Nitrostat dissolve 1 tablet 30tabs I25.10 Perry Jefferson 11/07/2018 0.4mg Tablets under the tongue Elba Swann Sub every 5 minutes up to 3 doses as needed replace every 12 months Potassium Chloride ER 1 by mouth every 30tabs R00.2 Domi Eubanks, 2018 day N.P. 20Meq Tablets ER Bipap for use while Won Ibarra, 09/28/2017 Device sleeping Elba Vitamin E 1 tab by mouth Unknown 400Unit daily Capsules Irbesartan Take 1/2 Tablet Unknown 75mg Tablets By Mouth Every Evening Aspirin Adult Low 1 by mouth every Unknown Dose day 81mg Tablets Vitamin C Plus 1 by mouth every Unknown 500mg day Tablets Dexilant 1 by mouth every Unknown 60mg Capsules day DR Clopidogrel Bisulfate 1 by mouth every 90tabs Domi Eubanks, day N.P. 75mg Tablets History Medications Metoprolol Succinate 1 tab by mouth in 90tabs Perry Jefferson 10/25/2018 - ER the morning. Elba Swann 04/12/2019 50mg Tablets ER 24HR Immunizations Description No Information Available Vital Signs Date Vital Result Comment 04/26/2019 3:06pm Height 67 inches 5'7" Weight 236.00 lb Heart Rate 74 /min BP Systolic Standing 122 mmHg Lue reg cuff BP Diastolic Standing 78 mmHg Lue reg cuff Respiratory Rate 13 /min BMI (Body Mass Index) 37.0 kg/m2 Ejection Fraction 55-60% ECHO 06/27/2018 04/12/2019 1:42pm Height 67 inches 5'7" Weight 239.75 lb without shoes Heart Rate 72 /min radial,regular BP Systolic Sitting 130 mmHg Ra, reg cuff BP Diastolic Sitting 88 mmHg Ra, reg cuff BP Systolic Standing 132 mmHg Ra, reg cuff BP Diastolic Standing 80 mmHg Ra, reg cuff BP Systolic Lying Down 132 mmHg la repeat sitting BP Diastolic Lying Down 74 mmHg la repeat sitting BMI (Body Mass Index) 37.5 kg/m2 Ejection Fraction 55%-60% echo 06/27/18 Results Test Acquired Date Facility Test Result H/L Range Note Laboratory test 04/16/2019 [facility] Erythrocyte Sed 25 mm/Hr High 0-19 [address] [place] [address] [phone] C Reactive Protein 1.69 mg/L Normal <8.01 2 Anti Nuclear Antibody 1.1 U Abnormal 3 Neutrophil Cytoplasmic 04/16/2019 [facility] C-Anca Negative Negative AB [address] [place] [address] [phone] P-Anca Negative Negative 4 Laboratory test 04/16/2019 [facility] Rheumatoid < 10 IU/mL Normal <[address] [place] [address] [phone] Cyclic Citrullinated Pep Igg <15.6 U 6 Anti Double Stranded Dna AB <12.3 IU/mL 7 Comp Metabolic 04/16/2019 [facility] Sodium 139 mmol/L Normal 135-[address] [place] [address] [phone] Potassium 4.7 mmol/L Normal 3.5-5.0 Chloride 103 mmol/L Normal 101-111 Co2 Carbon Dioxide 30 mmol/L Normal 22-32 Anion Gap 6 mmol/L Normal 2-11 Glucose 92 mg/dL Normal 70-100 Blood Urea Nitrogen 20 mg/dL Normal 6-24 Creatinine 1.14 mg/dL Normal 0.67-1.17 BUN/Creatinine Ratio 17.5 Normal 8-20 Calcium 9.8 mg/dL Normal 8.6-10.3 Total Protein 7.4 g/dL Normal 6.4-8.9 Albumin 4.5 g/dL Normal 3.2-5.2 Globulin 2.9 g/dL Normal 2-4 Albumin/Globulin Ratio 1.6 Normal 1-3 Total Bilirubin 0.70 mg/dL Normal 0.2-1.0 Alkaline Phosphatase 64 U/L Normal 34-104 Alt 13 U/L Normal 7-52 Ast 16 U/L Normal 13-39 Egfr Non- 67.7 >60 Egfr 81.9 >60 9 Lipid Profile 04/16/2019 [facility] Triglycerides 68 mg/dL 10 (Trig/Chol/HDL) [address] [place] [address] [phone] Cholesterol 104 mg/dL 11 HDL Cholesterol 44.5 mg/dL 12 LDL Cholesterol 46 mg/dL 13 Laboratory test 04/16/2019 [facility] Creatine 90 U/L Normal 10-223 [address] Kinase(CK) [place] [address] [phone] Lipid Panel - 02/01/2019 [facility] Creatine <pendin JFM [address] Kinase(CK) g> [place] [address] [phone] Comp Metabolic 12/20/2018 [facility] Sodium 137 Normal 135- [address] mmol/[place] [address] [phone] Potassium 4.1 mmol/L Normal 3.5-5.0 Chloride 103 mmol/L Normal 101-111 Co2 Carbon Dioxide 27 mmol/L Normal 22-32 Anion Gap 7 mmol/L Normal 2-11 Glucose 93 mg/dL Normal 70-100 Blood Urea Nitrogen 17 mg/dL Normal 6-24 Creatinine 1.21 mg/dL High 0.67-1.17 BUN/Creatinine Ratio 14.0 Normal 8-20 Calcium 9.3 mg/dL Normal 8.6-10.3 Total Protein 7.4 g/dL Normal 6.4-8.9 Albumin 4.4 g/dL Normal 3.2-5.2 Globulin 3.0 g/dL Normal 2-4 Albumin/Globulin Ratio 1.5 Normal 1-3 Total Bilirubin 0.90 mg/dL Normal 0.2-1.0 Alkaline Phosphatase 53 U/L Normal 34-104 Alt 13 U/L Normal 7-52 Ast 16 U/L Normal 13-39 Egfr Non- 63.2 >60 Egfr 76.5 >60 15 Laboratory 12/20/2018 [facility] Troponin-I (TnI) 0.00 <0.04 16 test finding [address] ng/[place] [address] [phone] Laboratory 11/26/2018 [facility] GGTP 17 U/L Normal 9-64.0 17 test finding [address] [place] [address] [phone] Lipid Profile 11/26/2018 [facility] Triglycerides 62 mg/dL 18 (Trig/Chol/HDL [address] ) [place] [address] [phone] Cholesterol 109 mg/dL 19 HDL Cholesterol 44.9 mg/dL 20 LDL Cholesterol 52 mg/dL 21 Comp Metabolic 11/26/2018 [facility] Sodium 138 mmol/L Normal 135-[address] [place] [address] [phone] Potassium 4.2 mmol/L Normal 3.5-5.0 Chloride 103 mmol/L Normal 101-111 Co2 Carbon Dioxide 27 mmol/L Normal 22-32 Anion Gap 8 mmol/L Normal 2-11 Glucose 87 mg/dL Normal 70-100 Blood Urea Nitrogen 16 mg/dL Normal 6-24 Creatinine 1.02 mg/dL Normal 0.67-1.17 BUN/Creatinine Ratio 15.7 Normal 8-20 Calcium 9.4 mg/dL Normal 8.6-10.3 Total Protein 7.6 g/dL Normal 6.4-8.9 Albumin 4.5 g/dL Normal 3.2-5.2 Globulin 3.1 g/dL Normal 2-4 Albumin/Globulin Ratio 1.5 Normal 1-3 Total Bilirubin 0.70 mg/dL Normal 0.2-1.0 Alkaline Phosphatase 50 U/L Normal 34-104 Alt 13 U/L Normal 7-52 Ast 16 U/L Normal 13-39 Egfr Non- 77.0 >60 Egfr 93.2 >60 22 Lipid Panel - 11/26/2018 [facility] Creatine 95 U/L Normal 10- [address] Kinase(CK) [place] [address] [phone] Laboratory test 11/26/2018 [facility] Free T4 (Free 0.79 Normal 0.61-1.[address] Thyroxine) ng/[place] [address] [phone] Lyme Screen W/ Reflex To WB Negative Negative 25 Erythrocyte Sed Rate 29 mm/Hr High 0-19 26 C Reactive Protein 2.51 mg/L Normal <8.01 27 Vitamin B12 11/26/2018 [facility] Vitamin B12 386 pg/mL Normal 180-914 28 [address] Folate [address] [place] [address] [phone] Folic Acid (Folate) > 20.00 ng/mL >3.99 29 1 Copy Result to: ANA ANAYA ([id number]) 2 Copy Result to: ANA ANAYA ([id number]) FASTING 3 Interpretation: Weak Positive (1.1-2.9) REFERENCE VALUE <=1.0 (Negative) Test Performed by: [place] [address] [employer] Developer: Galen Jordan M.D. Ph.D.; CLIA# [id number] 4 Negative for cANCA and pANCA patterns by immunofluorescence. ADDITIONAL INFORMATION This test was developed and its performance characteristics determined by [facility] in a manner consistent with CLIA requirements. This test has not been cleared or approved by the U.S. Food and Drug Administration. Test Performed by: [facility] [place] [address] [employer] Developer: Galen Jordan M.D. Ph.D.; CLIA# [id number] 5 Copy Result to: ANA ANAYA ([id number]) FASTING 6 REFERENCE VALUE <20.0 (Negative) Test Performed by: [facility] [place] [address] [employer] Developer: Galen Jordan M.D. Ph.D.; CLIA# [id number] 7 REFERENCE VALUE <30.0 (Negative) Test Performed by: [facility] [address] [place] [address] [employer] Developer: Galen Jordan M.D. Ph.D.; [facility]# [id number] 8 FASTING 9 Because ethnic data is not always readily [...] 15-29 5 Kidney failure <15 (or dialysis) 10 Desirable: <150 Borderline High: 150-199 High: 200-499 Very High: >500 11 Desirable: <200 Borderline High: 200-239 High: >239 12 Low: <40 Desirable: 40-60 High: >60 13 Desirable: <100 Near Optimal: 100-129 Borderline High: 130-159 High: 160-189 Very High: >189 14 FASTING 15 Because ethnic data is not always readily [...] 15-29 5 Kidney failure <15 (or dialysis) 16 Troponin-I testing on Plasma Separator Tubes (PST) has a known false positive rate of 0.20-0.40%. All positive troponins reflex immediately to secondary confirmatory testing. Using the [employer] DxI 800 Access Immunoassay systems, the 99th percentile upper reference limit was demonstrated to be < 0.03 ng/mL. 17 FASTING in 2 weeks Copy Result to: ANA ANAYA ([id number]) 18 Desirable: <150 Borderline High: 150-199 High: 200-499 Very High: >500 19 Desirable: <200 Borderline High: 200-239 High: >239 20 Low: <40 Desirable: 40-60 High: >60 21 Desirable: <100 Near Optimal: 100-129 Borderline High: 130-159 High: 160-189 Very High: >189 22 Because ethnic data is not always [...] 15-29 5 Kidney failure <15 (or dialysis) 23 FASTING in 2 weeks Copy Result to: ANA ANAYA ([id number]) 24 Copy Result to: ANA ANAYA ([id number]) 25 Copy Result to: ANA ANAYA ([id number]) 26 Copy Result to: ANA ANAYA ([id number]) 27 Copy Result to: ANA ANAYA ([id number]) 28 Normal Range 180 to 914 Indeterminate Range 145 to 180 Deficient Range <145 29 Copy Result to: ANA ANAYA ([id number]) Procedures Date Code Description Status 04/12/2019 42782 EKG Tracing & Interpretation Completed 01/31/2019 98832 EKG Tracing & Interpretation Completed 11/07/2018 93814 EKG Tracing & Interpretation Completed 10/25/2018 57898 Intravascular Blood Flow Velocity Completed 10/25/2018 03897 Cath PLMT&NJX L Ventriculog Img S&I Completed 10/25/2018 12690 Percutaneous Transcatheter Placement Of Intracoronary Completed Stent Medical Devices Description No Information Available Encounters Type Date Location Provider Dx Diagnosis Office Visit 04/26/2019 [facility] Domi Eubanks, R07.9 Chest pain , 3:00p Of [place] N.P. unspecified I25.10 [place] heart disease of [place] coronary artery w/o ang pctrs I10 Essential (primary) hypertension E78.00 Pure hypercholesterolemia, unspecified E66.8 Other obesity R20.2 Paresthesia of skin Office Visit 04/12/2019 2:00p [facility] Perry Jefferson I25.10 [place] heart Elba Swann disease of [place] coronary artery w/o ang pctrs R07.9 Chest pain, unspecified I10 Essential (primary) hypertension E78.00 Pure hypercholesterolemia, unspecified R42 Dizziness and giddiness E66.8 Other obesity Office Visit 01/31/2019 8:30a [facility] Domi S. I25.10 [place] heart Raimundo, N.P. disease of [place] coronary artery w/o ang pctrs R07.9 Chest pain, unspecified I10 Essential (primary) hypertension E78.00 Pure hypercholesterolemia, unspecified Office Visit 01/29/2019 10:00a [facility] Ismael R20.2 Paresthesia of [facility] Syed, N.P. skin R51 Headache G47.33 Obstructive sleep apnea (adult) (pediatric) I25.10 [place] heart disease of [place] coronary artery w/o ang pctrs Office Visit 12/24/2018 9:30a [facility] Domi S. I25.10 [place] heart aRimundo, N.P. disease of [place] coronary artery w/o ang pctrs R07.9 Chest pain, unspecified I10 Essential (primary) hypertension E78.00 Pure hypercholesterolemia, unspecified Office Visit 12/10/2018 9:00a [facility] Domi S. I25.10 [place] heart Raimundo, N.P. disease of [place] coronary artery w/o ang pctrs R07.9 Chest pain, unspecified I10 Essential (primary) hypertension E78.00 Pure hypercholesterolemia, unspecified R42 Dizziness and giddiness Office Visit 11/07/2018 3:40p [facility] Perry Jefferson G47.33 Obstructive sleep Elba Swann apnea (adult) (pediatric) I25.10 [place] heart disease of [place] coronary artery w/o ang pctrs R51 Headache R07.9 Chest pain, unspecified I10 Essential (primary) hypertension E78.00 Pure hypercholesterolemia, unspecified Office Visit 10/30/2018 3:00p [facility] Bia Payne I25.10 [place] heart Of [place] AT [facility] MD Cathy, disease of [facility] [place] coronary artery w/o ang pctrs Assessments Date Code Description Provider 04/26/2019 R07.9 Chest pain, unspecified Domi S. Foster, N.P. 04/26/2019 I25.10 Atherosclerotic heart disease of [place] Domi S. Foster, N.P. coronary artery with 04/26/2019 I10 Essential (primary) hypertension Domi S. Foster, N.P. 04/26/2019 E78.00 Hypercholesterolemia Domi S. Foster, N.P. 04/26/2019 E66.8 Obesity Domi S. Foster, N.P. 04/26/2019 R20.2 Paresthesia of skin Domi S. Foster, N.P. 04/12/2019 I25.10 Atherosclerotic heart disease of [place] Perry Swann M.D. coronary artery with 04/12/2019 R07.9 Chest pain, unspecified Perry Swann M.D. 04/12/2019 I10 Essential (primary) hypertension Perry Swann M.D. 04/12/2019 E78.00 Hypercholesterolemia Perry Swann M.D. 04/12/2019 R42 Dizziness and giddiness Perry Swann M.D. 04/12/2019 E66.8 Obesity Perry Swann M.D. 01/31/2019 R94.31 Abnormal electrocardiogram [ECG] [EKG] Perry Swann M.D. 01/31/2019 I25.10 Atherosclerotic heart disease of [place] Domi S. Foster, N.P. coronary artery with 01/31/2019 R07.9 Chest pain, unspecified Domi S. Raimundo, N.P. 01/31/2019 I10 Essential (primary) hypertension Domi S. Raimundo, N.P. 01/31/2019 E78.00 Hypercholesterolemia Domi S. Raimundo, N.P. 01/29/2019 R20.2 Paresthesia of skin Ismael Syed, N.P. 01/29/2019 R51 Headache Ismael Syed, N.P. 01/29/2019 G47.33 Obstructive sleep apnea (adult) Ismael Syed, N.P. (pediatric) 01/29/2019 I25.10 Atherosclerotic heart disease of [place] Ismael Syed, N.P. coronary artery with 12/24/2018 I25.10 Atherosclerotic heart disease of [place] Domi Eubanks, N.P. coronary artery with 12/24/2018 R07.9 Chest pain, unspecified Domi Lyon. Raimundo, N.P. 12/24/2018 I10 Essential (primary) hypertension Domi Lyon. Raimundo, N.P. 12/24/2018 E78.00 Hypercholesterolemia Domi S. Raimundo, N.P. 12/10/2018 I25.10 Atherosclerotic heart disease of [place] Domi Eubanks, N.P. coronary artery with 12/10/2018 R07.9 Chest pain, unspecified Domi S. Raimundo, N.P. 12/10/2018 I10 Essential (primary) hypertension Domi Lyon. Raimundo, N.P. 12/10/2018 E78.00 Hypercholesterolemia Domi S. Raimundo, N.P. 12/10/2018 R42 Dizziness and giddiness Domi Lyon. Raimundo, N.P. 11/07/2018 G47.33 Obstructive sleep apnea (adult) Perry Swann M.D. (pediatric) 11/07/2018 I25.10 Atherosclerotic heart disease of [place] Perry Swann M.D. coronary artery with 11/07/2018 R51 Headache Perry Swann M.D. 11/07/2018 R07.9 Chest pain, unspecified Perry Swann M.D. 11/07/2018 I10 Essential (primary) hypertension Perry Swann M.D. 11/07/2018 E78.00 Hypercholesterolemia Perry Swann M.D. 10/30/2018 I25.10 Atherosclerotic heart disease of [place] Bia Morgan MD, [facility], coronary artery with FSCAI 10/25/2018 I25.10 Atherosclerotic heart disease of [place] Bia Morgan MD, [facility], coronary artery with FSCAI Plan of Treatment Future Appointment(s):09/24/2019 10:20 am - Perry Swann M.D. at [facility]/2019 11:00 am - Ismael Syed NSharda at [facility]10/11/2019 11:00 am - Melida Linares DNP, RN, MUSHROOM GROWER- at [facility]04/26/2019 - Domi Eubanks N.P.R07.9 Chest pain, oueqlnjcmeuS61.10 Atherosclerotic heart disease of [place] coronary artery withI10 Essential (primary) hypertensionFollow up:[facility] 2019Recommendations:BP controlled on current medsE78.00 NtplprdbcoanhjumvtimT71.8 YzhnphvR04.2 Paresthesia of skin Functional Status Description No Information Available Mental Status Description No Information Available Referrals Description No Information Available
--- OUTSIDE RECORDS SUMMARY | 2019-05-20 19:30 | XMS REPORT | Continuity of Care Document ---
:1965 External Reference #:[id number] Author Name Perry Swann M.D. 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 Onset: 10/15/2018 Skin sensation disturbance Ez Munoz M.D. Onset: 10/15/2018 Social History Type Date Description Comments Sex Unknown Tobacco Use Start: Unknown Former Cigarette Smoked for 10 years, 1 End: Unknown Smoker ppd; quit in 1995 Smoking Status Reviewed: 01/31/19 Former Cigarette Smoked for 10 years, 1 Smoker ppd; quit in 1995 ETOH Use Rarely consumes once or twice a year alcohol only Tobacco Use Start: Unknown Patient is a [...] by mouth every Unknown 60mg Capsules day Clopidogrel Bisulfate 1 by mouth every 90tabs Domi Eubanks, day N.P. 75mg Tablets History Medications Metoprolol Succinate 1 tab by mouth in 90tabs Perry Jefferson 10/25/2018 - ER the morning. Elba Swann 04/12/2019 50mg Tablets ER 24HR Lipitor 1 by mouth at 90tabs Perry Jefferson 10/23/2018 - 40mg Tablets bedtime Elba Swann 01/31/2019 Immunizations Description No Information Available Vital Signs Date Vital Result Comment 04/12/2019 1:42pm Height 67 inches 5'7" Weight [...] 37.5 kg/m2 Ejection Fraction 55%-60% echo 06/27/18 01/31/2019 8:30am Height 67 inches 5'7" Weight 236.00 lb Heart Rate 80 /min BP Systolic Sitting 118 mmHg Lue (Large cuff) BP Diastolic Sitting 84 mmHg Lue (Large cuff) BP Systolic Standing 122 mmHg BP Diastolic Standing 80 mmHg BMI (Body Mass Index) 37.0 kg/m2 Ejection Fraction 55-60% Echocardiogram 06/27/2018 Results Test Acquired Date Facility Test Result H/L Range Note Lipid Panel - 02/01/2019 [facility] Creatine <pending> [facility] [address] Kinase(CK) [place] [address] [phone] Comp Metabolic 12/20/2018 [facility] Sodium 137 mmol/L Normal 135-[address] [place] [address] [phone] Potassium 4.1 mmol/L Normal 3.5-5.0 Chloride 103 [...] Egfr Non- 63.2 >60 Egfr 76.5 >60 1 Laboratory 12/20/2018 [facility] Troponin-I (TnI) 0.00 <0.04 2 test finding [address] ng/[place] [address] [phone] Laboratory 11/26/2018 [facility] GGTP 17 U/L Normal 9-64.0 3 [place] [address] [phone] Lipid Profile 11/26/2018 [facility] Triglycerides 62 mg/dL 4 (Trig/Chol/HDL ) [place] [address] [phone] Cholesterol 109 mg/dL 5 HDL Cholesterol 44.9 mg/dL 6 LDL Cholesterol 52 mg/dL 7 Comp Metabolic 11/26/2018 [facility] Sodium 138 mmol/L Normal 135-145 [place] [address] [phone] Potassium 4.2 mmol/L Normal 3.5-5.0 Chloride 103 [...] Egfr Non- 77.0 >60 Egfr 93.2 >60 8 Lipid Panel - 11/26/2018 [facility] Creatine 95 U/L Normal 10- 223 9 [facility] Kinase(CK) [place] [address] [phone] Laboratory test 11/26/2018 [facility] Free T4 (Free 0.79 Normal 0.61-1.12 10 finding Thyroxine) ng/[place] [address] [phone] Lyme Screen W/ Reflex To WB Negative Negative 11 Erythrocyte Sed Rate 29 mm/Hr High 0-19 12 C Reactive Protein 2.51 mg/L Normal <8.01 13 Vitamin B12 11/26/2018 [facility] Vitamin B12 386 pg/mL Normal 180-914 14 [address] [place] [address] [phone] Folic Acid (Folate) > 20.00 ng/mL >3.99 15 1 Because ethnic data is not always [...] 5 Kidney failure <15 (or dialysis) 2 Troponin-I testing on Plasma Separator Tubes (PST) has a known false positive rate of 0.20-0.40%. All positive troponins reflex immediately to secondary confirmatory testing. Using the [employer] DxI 800 Access Immunoassay systems, the 99th percentile upper reference limit was demonstrated to be < 0.03 ng/mL. 3 FASTING in 2 weeks Copy Result to: ANA ANAYA ([id number]) 4 Desirable: <150 Borderline High: 150-199 High: 200-499 Very High: >500 5 Desirable: <200 Borderline High: 200-239 High: >239 6 Low: <40 Desirable: 40-60 High: >60 7 Desirable: <100 Near Optimal: 100-129 Borderline High: 130-159 High: 160-189 Very High: >189 8 Because ethnic data is not always readily [...] 15-29 5 Kidney failure <15 (or dialysis) 9 FASTING in 2 weeks Copy Result to: ANA ANAYA ([id number]) 10 Copy Result to: ANA ANAYA ([id number]) 11 Copy Result to: ANA ANAYA ([id number]) 12 Copy Result to: ASAFLENNYMARYN ([id number]) 13 Copy Result to: ASAFLENNY ANA ([id number]) 14 Normal Range 180 to 914 Indeterminate Range 145 to 180 Deficient Range <145 15 Copy Result to: HÉCTOR ANA ([id number]) Procedures Date Code Description Status 04/12/2019 78716 EKG Tracing & Interpretation Completed 01/31/2019 87485 EKG Tracing & Interpretation Completed 11/07/2018 53319 EKG Tracing & Interpretation Completed 10/25/2018 85741 Intravascular Blood Flow Velocity Completed 10/25/2018 65085 Cath PLMT&NJX L Ventriculog Img S&I Completed 10/25/2018 39397 Percutaneous Transcatheter Placement Of Intracoronary Completed Stent Medical Devices Description No Information Available Encounters Type Date Location Provider Dx Diagnosis Office Visit 01/31/2019 [facility] Domi Eubanks, I25.10 [facility] 8:30a N.P. disease of [place] [facility] R07.9 Chest pain, unspecified I10 Essential (primary) hypertension E78.00 Pure hypercholesterolemia, unspecified Office Visit 01/29/2019 10:00a [facility] Ismael R20.2 Paresthesia of [facility] Kunal, N.P. skin R51 Headache G47.33 Obstructive sleep apnea (adult) (pediatric) I25.10 [facility] disease [facility] [place] [facility] 12/24/2018 9:30a [facility] Domi Schneider I25.10 [facility] Raimundo N.P. disease of [place] [facility] R07.9 Chest pain, unspecified I10 Essential (primary) hypertension E78.00 Pure hypercholesterolemia, unspecified Office Visit 12/10/2018 9:00a [facility] Domi S. I25.10 [facility] Raimundo N.P. disease of [place] coronary artery w/o ang pctrs R07.9 Chest pain, unspecified I10 Essential (primary) hypertension E78.00 Pure hypercholesterolemia, unspecified R42 Dizziness and giddiness Office Visit 11/07/2018 3:40p [facility] Perry Jefferson G47.33 Obstructive sleep Elba Swann apnea (adult) (pediatric) I25.10 Aths[facility] heart disease of [place] coronary artery w/o ang pctrs R51 Headache R07.9 Chest pain, unspecified I10 Essential (primary) hypertension E78.00 Pure hypercholesterolemia, unspecified Office Visit 10/30/2018 [facility] Bia Payne I25.10 [facility] heart 3:00p Of [employer] [facility] [place] Cathy, disease of FACC, FSCAI [place] coronary artery w/o ang pctrs Office Visit 10/22/2018 [facility] Judy R07.9 Chest pain, 9:45a Assoc,pc Farhan, AUTO APPRAISER unspecified Hospitalists Office Visit 10/15/2018 [facility] Christopher R20.2 Paresthesia of 2:30p Services Of Venita Munoz M.D. skin R51 Headache Assessments Date Code Description Provider 04/12/2019 I25.10 Atherosclerotic heart disease of Perry Swann M.D. [place] coronary artery with 04/12/2019 R07.9 Chest pain, unspecified Perry Swann M.D. 04/12/2019 I10 Essential (primary) hypertension Perry Swann M.D. 04/12/2019 E78.00 Hypercholesterolemia Perry Swann M.D. 04/12/2019 R42 Dizziness and giddiness Perry Swann M.D. 04/12/2019 E66.8 Obesity Perry Swann M.D. 01/31/2019 R94.31 Abnormal electrocardiogram [ECG] [EKG] Perry Swann M.D. 01/31/2019 I25.10 Atherosclerotic heart disease of Domi Eubanks, N.P. ramp[place] coronary artery with 01/31/2019 R07.9 Chest pain, unspecified Domi S. Raimundo, N.P. 01/31/2019 I10 Essential (primary) hypertension Domi Lyon. Raimundo, N.P. 01/31/2019 E78.00 Hypercholesterolemia Domi SWendy Eubanks, N.P. 01/29/2019 R20.2 Paresthesia of skin Ismael Syed, N.P. 01/29/2019 R51 Headache Ismael Syed, N.P. 01/29/2019 G47.33 Obstructive sleep apnea (adult) Ismael Syed, N.P. (pediatric) 01/29/2019 I25.10 Atherosclerotic heart disease of Ismael Syed, N.P. ramp[place] coronary artery with 12/24/2018 I25.10 Atherosclerotic heart disease of Domi Eubanks, N.P. [place] coronary artery with 12/24/2018 R07.9 Chest pain, unspecified Domi Lyon. Raimundo, N.P. 12/24/2018 I10 Essential (primary) hypertension Domi S. Raimundo, N.P. 12/24/2018 E78.00 Hypercholesterolemia Domi S. Raimundo, N.P. 12/10/2018 I25.10 Atherosclerotic heart disease of Domi Lyon. Raimundo, N.P. ramp[place] coronary artery with 12/10/2018 R07.9 Chest pain, unspecified Domi S. Raimundo, N.P. 12/10/2018 I10 Essential (primary) hypertension Domi S. Raimundo, N.P. 12/10/2018 E78.00 Hypercholesterolemia Domi S. Foster, N.P. 12/10/2018 R42 Dizziness and giddiness Domi Lyon. Raimundo, N.P. 11/07/2018 G47.33 Obstructive sleep apnea (adult) Perry Swann M.D. (pediatric) 11/07/2018 I25.10 Atherosclerotic heart disease of Peryr Swann M.D. [place] coronary artery with 11/07/2018 R51 Headache Perry Swann M.D. 11/07/2018 R07.9 Chest pain, unspecified Perry Swann M.D. 11/07/2018 I10 Essential (primary) hypertension Perry Swann M.D. 11/07/2018 E78.00 Hypercholesterolemia Perry Swann M.D. 10/30/2018 I25.10 Atherosclerotic heart disease of Bia Morgan MD, [facility], [place] coronary artery with FSCAI 10/25/2018 I25.10 Atherosclerotic heart disease of Bia Morgan MD, [facility], [place] coronary artery with FSCAI 10/22/2018 R07.9 Chest pain, unspecified Judy Real, AUTO APPRAISER 10/15/2018 R20.2 Paresthesia of skin Ez Munoz M.D. 10/15/2018 R51 Headache Ez Munoz M.D. Plan of Treatment Future Appointment(s):04/26/2019 3:00 pm - Domi Eubanks N.P. at [facility]04/29/2019 11:00 am - Ismael Syed N.P. at [facility]10/11/2019 11:00 am - Melida Linares DNP, RN, PROCESS PLANT OPERATOR- at [facility]04/12/2019 - Perry Swann M.D.I25.10 Atherosclerotic heart disease of [place] coronary artery withR07.9 Chest pain, [id number] Essential (primary) vspizpjahsqpY39.00 HypercholesterolemiaFollow up:lease provide lab slips for repeat lipids.R42 Dizziness and giddinessFollow up:ov Domi 2-3 weeks ov [facility] 5 mE66.8 ObesityRecommendations:reduce weight Functional Status Description No Information Available Mental Status Description No Information Available Referrals Description No Information Available
--- OUTSIDE RECORDS SUMMARY | 2019-05-20 19:30 | XMS REPORT | Continuity of Care Document ---
:1965 External Reference #:[id number] Author Name Ismael Syed N.P. 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 Onset: 10/15/2018 Skin sensation disturbance Ez Munoz M.D. Onset: 10/15/2018 Social History Type Date Description Comments Sex Unknown Tobacco Use Start: Unknown Former Cigarette Smoked for 10 years, 1 End: Unknown Smoker ppd; quit in 1995 Smoking Status Reviewed: 04/29/19 Former Cigarette Smoked for 10 years, 1 [...] 90tabs Domi Eubanks, day N.P. 75mg Tablets Immunizations Description No Information Available Vital Signs Date Vital Result Comment 04/29/2019 11:02am Height 67 inches 5'7" Weight 235.00 lb Heart Rate 58 /min BP Systolic 130 mmHg BP Diastolic 76 mmHg BMI (Body Mass Index) 36.8 kg/m2 04/26/2019 3:06pm Height 67 inches 5'7" Weight 236.00 lb Heart Rate 74 /min BP Systolic Standing 122 mmHg Lue reg cuff BP Diastolic Standing 78 mmHg Lue reg cuff Respiratory Rate 13 /min BMI (Body Mass Index) 37.0 kg/m2 Ejection Fraction 55-60% ECHO 06/27/2018 Results Test Acquired Date Facility Test Result H/L Range Note Laboratory test 04/26/2019 [facility] Anti Nuclear 1.0 U [address] [place] [address] [phone] Erythrocyte Sed Rate 25 mm/Hr High 0-19 Laboratory test 04/16/2019 [facility] Erythrocyte Sed 25 mm/Hr High 0-[address] [place] [address] [phone] C Reactive Protein 1.69 mg/L Normal <8.01 3 Anti Nuclear Antibody 1.1 U Abnormal 4 Neutrophil Cytoplasmic 04/16/2019 [facility] C-Anca Negative Negative AB [address] [place] [address] [phone] P-Anca Negative Negative 5 Laboratory test 04/16/2019 [facility] Rheumatoid < 10 IU/mL Normal <[address] [place] [address] [phone] Cyclic Citrullinated Pep Igg <15.6 U 7 Anti Double Stranded Dna AB <12.3 IU/mL 8 Comp Metabolic 04/16/2019 [facility] Sodium 139 mmol/L Normal 135-[address] [place] [address] [phone] Potassium 4.7 mmol/L Normal 3.5-5.0 Chloride 103 [...] Egfr Non- 67.7 >60 Egfr 81.9 >60 10 Lipid Profile 04/16/2019 [facility] Triglycerides 68 mg/dL 11 (Trig/Chol/HDL) [address] [place] [address] [phone] Cholesterol 104 mg/dL 12 HDL Cholesterol 44.5 mg/dL 13 LDL Cholesterol 46 mg/dL 14 Laboratory test 04/16/2019 [facility] Creatine 90 U/L Normal 10-223 [address] Kinase(CK) [place] [address] [phone] Lipid Panel - 02/01/2019 [facility] Creatine <pendin JFM [address] Kinase(CK) g> [place] [address] [phone] Comp Metabolic 12/20/2018 [facility] Sodium 137 Normal 135- [address] mmol/[place] [address] [phone] Potassium 4.1 mmol/L Normal 3.5-5.0 Chloride 103 [...] Egfr Non- 63.2 >60 Egfr 76.5 >60 16 Laboratory 12/20/2018 [facility] Troponin-I (TnI) 0.00 <0.04 17 test finding [address] ng/[place] [address] [phone] Laboratory 11/26/2018 [facility] GGTP 17 U/L Normal 9-64.0 18 test finding [address] [place] [address] [phone] Lipid Profile 11/26/2018 [facility] Triglycerides 62 mg/dL 19 (Trig/Chol/HDL [address] ) [place] [address] [phone] Cholesterol 109 mg/dL 20 HDL Cholesterol 44.9 mg/dL 21 LDL Cholesterol 52 mg/dL 22 Comp Metabolic 11/26/2018 [facility] Sodium 138 mmol/L Normal 135-[address] [place] [address] [phone] Potassium 4.2 mmol/L Normal 3.5-5.0 Chloride 103 [...] Egfr Non- 77.0 >60 Egfr 93.2 >60 23 Lipid Panel - 11/26/2018 [facility] Creatine 95 U/L Normal 10- [address] Kinase(CK) [place] [address] [phone] Laboratory test 11/26/2018 [facility] Free T4 (Free 0.79 Normal 0.61-1.[address] Thyroxine) ng/[place] [address] [phone] Lyme Screen W/ Reflex To WB Negative Negative 26 Erythrocyte Sed Rate 29 mm/Hr High 0-19 27 C Reactive Protein 2.51 mg/L Normal <8.01 28 Vitamin B12 11/26/2018 [facility] Vitamin B12 386 pg/mL Normal 180-914 [address] [place] [address] [phone] Folic Acid (Folate) > 20.00 ng/mL >3.99 30 1 REFERENCE VALUE <=1.0 (Negative) Test Performed by: [facility] [place] [address] Coil Taper: Galen Jordan M.D. Ph.D.; CLIA# [id number] 2 Copy Result to: ANA ANAYA ([id number]) 3 Copy Result to: ANA ANAYA ([id number]) FASTING 4 Interpretation: Weak Positive (1.1-2.9) REFERENCE VALUE <=1.0 (Negative) Test Performed by: [place] [address] Coil Taper: Galen Jordan M.D. Ph.D.; CLIA# [id number] 5 Negative for cANCA and pANCA patterns by immunofluorescence. ADDITIONAL INFORMATION This test was developed and its performance characteristics determined by [facility] in a manner consistent with CLIA requirements. This test has not been cleared or approved by the U.S. Food and Drug Administration. Test Performed by: [facility] [place] [address] Coil Taper: Galen Jordan M.D. Ph.D.; CLIA# [id number] 6 Copy Result to: ANA ANAYA ([id number]) FASTING 7 REFERENCE VALUE <20.0 (Negative) Test Performed by: [facility] [place] [address] Coil Taper: Galen Jordan M.D. Ph.D.; CLIA# [id number] 8 REFERENCE VALUE <30.0 (Negative) Test Performed by: [facility] [address] [place] [address] Coil Taper: Galen Jordan M.D. Ph.D.; CLIA# [id number] 9 FASTING 10 Because ethnic data is not always readily [...] 15-29 5 Kidney failure <15 (or dialysis) 11 Desirable: <150 Borderline High: 150-199 High: 200-499 Very High: >500 12 Desirable: <200 Borderline High: 200-239 High: >239 13 Low: <40 Desirable: 40-60 High: >60 14 Desirable: <100 Near Optimal: 100-129 Borderline High: 130-159 High: 160-189 Very High: >189 15 FASTING 16 Because ethnic data is not always readily [...] 15-29 5 Kidney failure <15 (or dialysis) 17 Troponin-I testing on Plasma Separator Tubes (PST) has a known false positive rate of 0.20-0.40%. All positive troponins reflex immediately to secondary confirmatory testing. Using the [employer] DxI 800 Access Immunoassay systems, the 99th percentile upper reference limit was demonstrated to be < 0.03 ng/mL. 18 FASTING in 2 weeks Copy Result to: ANA ANAYA ([id number]) 19 Desirable: <150 Borderline High: 150-199 High: 200-499 Very High: >500 20 Desirable: <200 Borderline High: 200-239 High: >239 21 Low: <40 Desirable: 40-60 High: >60 22 Desirable: <100 Near Optimal: 100-129 Borderline High: 130-159 High: 160-189 Very High: >189 23 Because ethnic data is not always readily [...] 15-29 5 Kidney failure <15 (or dialysis) 24 FASTING in 2 weeks Copy Result to: ANA ANAYA ([id number]) 25 Copy Result to: ANA ANAYA ([id number]) 26 Copy Result to: ANA ANAYA ([id number]) 27 Copy Result to: ANA ANAYA ([id number]) 28 Copy Result to: ANA ANAYA ([id number]) 29 Normal Range 180 to 914 Indeterminate Range 145 to 180 Deficient Range <145 30 Copy Result to: ANA ANAYA ([id number]) Procedures Date Code Description Status 04/12/2019 36798 EKG Tracing & Interpretation Completed 01/31/2019 43495 EKG Tracing & Interpretation Completed 11/07/2018 50843 EKG Tracing & Interpretation Completed Medical Devices Description No Information Available Encounters Type Date Location Provider Dx Diagnosis Office Visit 04/12/2019 [facility] Perry Jefferson I25.10 Aths[place] heart 2:00p Elba Swann disease of [place] coronary artery w/o ang pctrs R07.9 Chest pain, unspecified I10 Essential (primary) hypertension E78.00 Pure hypercholesterolemia, unspecified R42 Dizziness and giddiness E66.8 Other obesity Office Visit 01/31/2019 8:30a [facility] Domi S. I25.10 [place] heart Raimundo, N.P. disease of [place] coronary artery w/o ang pctrs R07.9 Chest pain, unspecified I10 Essential (primary) hypertension E78.00 Pure hypercholesterolemia, unspecified Office Visit 01/29/2019 10:00a [facility] Ismael R20.2 Paresthesia of [facility], N.P. skin R51 Headache G47.33 Obstructive sleep apnea (adult) (pediatric) I25.10 Athscl heart disease of [place] coronary artery w/o ang pctrs Office Visit 12/24/2018 9:30a [facility] Domi S. I25.10 [place] heart Foster, N.P. disease of [place] coronary artery w/o ang pctrs R07.9 Chest pain, unspecified I10 Essential (primary) hypertension E78.00 Pure hypercholesterolemia, unspecified Office Visit 12/10/2018 9:00a [facility] Domi S. I25.10 [place] heart Foster, N.P. disease of [place] coronary artery w/o ang pctrs R07.9 Chest pain, unspecified I10 Essential (primary) hypertension E78.00 Pure hypercholesterolemia, unspecified R42 Dizziness and giddiness Office Visit 11/07/2018 3:40p [place] Sheyla Jefferson G47.33 Obstructive sleep Elba Swann apnea (adult) (pediatric) I25.10 Aths[place] heart disease of [place] coronary artery w/o ang pctrs R51 Headache R07.9 Chest pain, unspecified I10 Essential (primary) hypertension E78.00 Pure hypercholesterolemia, unspecified Office Visit 10/30/2018 3:00p [facility] Bia Payne I25.10 Ath[place] heart Of [employer] Inspector AT [facility] MD Cathy, disease of [facility] [place] coronary artery w/o ang pctrs Assessments Date Code Description Provider 04/29/2019 R70.0 Elevated erythrocyte sedimentation rate Ismaelotis Syed, N.P. 04/29/2019 R20.2 Paresthesia of skin Ismaelotis Syed, N.P. 04/29/2019 R51 Headache Ismael Syed, N.P. 04/26/2019 R07.9 Chest pain, unspecified Domi S. Raimundo, N.P. 04/26/2019 I25.10 Atherosclerotic heart disease of [place] Domi S. Foster, N.P. coronary artery with 04/26/2019 I10 Essential (primary) hypertension Domi S. Foster, N.P. 04/26/2019 E78.00 Hypercholesterolemia Domi S. Foster, N.P. 04/26/2019 E66.8 Obesity Domi S. Raimundo, N.P. 04/26/2019 R20.2 Paresthesia of skin Domi S. Foster, N.P. 04/12/2019 I25.10 Atherosclerotic heart disease of [place] Perry Swann M.D. coronary artery with 04/12/2019 R07.9 Chest pain, unspecified Perry Swann M.D. 04/12/2019 I10 Essential (primary) hypertension Perry Swann M.D. 04/12/2019 E78.00 Hypercholesterolemia Perry Swann M.D. 04/12/2019 R42 Dizziness and giddiness Perry Swann M.D. 04/12/2019 E66.8 Obesity Perry Swann M.D. 01/31/2019 R94.31 Abnormal electrocardiogram [ECG] [EKG] Perry Swann M.D. 01/31/2019 I25.10 Atherosclerotic heart disease of [place] Domi S. Raimundo, N.P. coronary artery with 01/31/2019 R07.9 Chest pain, unspecified Domi S. Foster, N.P. 01/31/2019 I10 Essential (primary) hypertension Domi S. Foster, N.P. 01/31/2019 E78.00 Hypercholesterolemia Domi Eubanks, N.P. 01/29/2019 R20.2 Paresthesia of skin Ismael Syed, N.P. 01/29/2019 R51 Headache Ismael Syed, N.P. 01/29/2019 G47.33 Obstructive sleep apnea (adult) Ismael Syed, N.P. (pediatric) 01/29/2019 I25.10 Atherosclerotic heart disease of [place] Ismael Syed, N.P. coronary artery with 12/24/2018 I25.10 Atherosclerotic heart disease of [place] Domi Eubanks, N.P. coronary artery with 12/24/2018 R07.9 Chest pain, unspecified Domi Camron. Raimundo, N.P. 12/24/2018 I10 Essential (primary) hypertension Domi Eubanks, N.P. 12/24/2018 E78.00 Hypercholesterolemia Domi Eubanks, N.P. 12/10/2018 I25.10 Atherosclerotic heart disease of [place] Domi Eubanks, N.P. coronary artery with 12/10/2018 R07.9 Chest pain, unspecified Domi S. Raimundo, N.P. 12/10/2018 I10 Essential (primary) hypertension Domi Lyon. Raimundo, N.P. 12/10/2018 E78.00 Hypercholesterolemia Domi Eubanks, N.P. 12/10/2018 R42 Dizziness and giddiness Domi Eubanks, N.P. 11/07/2018 G47.33 Obstructive sleep apnea (adult) Perry Swann M.D. (pediatric) 11/07/2018 I25.10 Atherosclerotic heart disease of [place] Perry Swann M.D. coronary artery with 11/07/2018 R51 Headache Perry Swann M.D. 11/07/2018 R07.9 Chest pain, unspecified Perry Swann M.D. 11/07/2018 I10 Essential (primary) hypertension Perry Swann M.D. 11/07/2018 E78.00 Hypercholesterolemia Perry Swann M.D. 10/30/2018 I25.10 Atherosclerotic heart disease of [place] Bia Morgan MD, [facility], coronary artery with FSCAI Plan of Treatment Future Appointment(s):08/15/2019 11:00 am - Ismael Syed N.Torres. at [facility]09/24/2019 10:20 am - Perry Swann M.D. at [place] [facility]ywszirbxh64/01/2020 11:00 am - Melida Linares DNP, RN, CISCO ADMINISTRATOR-BC at [facility]04/26/2019 - Domi Eubanks N.P.R07.9 Chest pain, svkmimgaauiA47.10 Atherosclerotic heart disease of [place] coronary artery withI10 Essential (primary) hypertensionFollow up:[facility] 2019Recommendations:BP controlled on current medsE78.00 BatuuuvxirwmgajwfqurN07.8 EwyvctaJ92.2 Paresthesia of skin Functional Status Description No Information Available Mental Status Description No Information Available Referrals Refer to Dr Reason for Referral Status Appt Date Jeison Muñoz MD Created [address], [place] [address] [phone]
--- OUTSIDE RECORDS SUMMARY | 2019-05-20 19:31 | XMS REPORT | Continuity of Care Document ---
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 Problems Description No Information Available Social History Type Date Description Comments Sex Unknown Tobacco Use Start: Unknown End: Unknown Patient is a former smoker Smoking Status Reviewed: 11/09/18 Patient is a former smoker Allergies, Adverse Reactions, Alerts Active Allergies Reaction Severity Comments Date Phentermine dizzy-dry mouth 12/30/2016 Lisinopril cough, trouble swallowing 12/14/2010 Medications Active Medications SIG Qnty Indications Ordering Provider Date Dexilant 1 by mouth every 30caps Benjamín Galvez, 11/29/2018 60mg Capsules day Potassium CL ER 20 MG Daily Benjamín Galvez DO 11/09/2018 Spironolactone/Hydroc take 1 tablet by 30tabs I10 Marcos Doan, 2017 hlorothiazide mouth every day 25-25mg for blood Tablets pressure Amlodipine Besylate Take 1 Tablet By 30tabs Marcos Doan, 05/04/2015 Mouth Every Day MD 10mg Tablets Metoprolol Succinate 1/2 by mouth 30tabs Unknown ER every day 25mg Tablets ER 24HR Nitrostat Place One Tablet Unknown 0.4mg Tablets Under The Tongue Sub as Needed For Chest Pain, May Repeat Every 5 Minutes For Up To 3 Total Doses Aspirin Low Dose Take 1 Tablet By Unknown 81mg Mouth Every Day Tablets Vitamin E Unknown Vitamin C Unknown Psyllium Husk 1 tsp daily Unknown Atorvastatin Calcium Unknown 40mg Tablets Irbesartan Daily Unknown 75mg Tablets Omeprazole 1 by mouth every K21.[address] day Capsules [address] Deluna Description No Information Available Vital Signs Date Vital Result Comment 11/09/2018 3:30pm Height 67 inches 5'7" Weight 242.00 lb BP Systolic 142 mmHg BP Diastolic 83 mmHg Heart Rate 64 /min BMI (Body Mass Index) 37.9 kg/m2 06/18/2018 12:48pm Height 67 inches 5'7" Weight 250.00 lb BP Systolic 164 mmHg BP Diastolic 92 mmHg Heart Rate 106 /min BMI (Body Mass Index) 39.2 kg/m2 Results Description No Information Available Procedures Description No Information Available Medical Devices Description No Information Available Encounters Type Date Location Provider Dx Diagnosis Office Visit 11/09/2018 Gastroenterology Benjamín Galvez, K21.9 Gastro- esophageal 3:30p [facility] DO reflux disease without esophagitis R10.13 Epigastric pain E66.9 Obesity, unspecified Assessments Date Code Description Provider 11/09/2018 K21.9 Gastro-esophageal reflux disease without Benjamín Galvez, DO esophagitis 11/09/2018 R10.13 Epigastric pain Benjamín Tejedaan, DO 11/09/2018 E66.9 Obesity, unspecified Benjamín Leonor, DO Plan of Treatment No Information Available Functional Status Description No Information Available Mental Status Description No Information Available Referrals Description No Information Available
[2019-05-20] MEDS ORDERED: Metoprolol Succinate XL TAB* 50 MG PO SCH (21:00)
[2019-05-20] MEDS ORDERED: Nitroglycerin TAB 0.4 MG* 0.4 MG TAB SL PRN (21:07)
[2019-05-21] MEDS ORDERED: Acetaminophen TAB* 325 MG PO PRN
[2019-05-21 03:53] LABS: Hematocrit 30 % (42-52); Hemoglobin 9.4 g/dL (14.0-18.0); Mean Corpuscular HGB Conc 31 g/dL (31-36); Mean Corpuscular Hemoglobin 23 pg (27-31); Mean Corpuscular Volume 73 fL (80-94); Mean Platelet Volume 7.8 fL (7.4-10.4); Platelet Count 239 10^3/uL (150-450); Red Blood Count 4.14 10^6 /uL (4.18-5.48); Red Cell Distribution Width 18 % (10-15); White Blood Count 4.4 10^3/uL (3.5-10.8)
[2019-05-21 03:55] LABS: BUN/Creatinine Ratio 18.6 (8-20); EGFR African American 93.2 (>60)
[2019-05-21 03:58] LABS: Troponin I 0.01 ng/mL (<0.03)
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
[2019-05-21] MEDS ORDERED: Metoprolol Succinate XL TAB* 25 MG PO SCH (09:00)
[2019-05-21] MEDS ORDERED: Losartan TAB* 25 MG PO SCH (09:00)
[2019-05-21] MEDS ORDERED: Aspirin 81 mg CHEW TAB* 81 MG TAB.CHEW PO SCH (09:00)
[2019-05-21] MEDS ORDERED: Clopidogrel TAB* 75 MG PO SCH (09:00)
[2019-05-21] MEDS ORDERED: Spironolactone TAB* 25 MG PO SCH (09:00)
[2019-05-21] MEDS ORDERED: Hydrochlorothiazide TAB* 25 MG PO SCH (09:00)
[2019-05-21] MEDS ORDERED: amLODIPine TAB* 5 MG PO SCH (09:00)
[2019-05-21 16:33] VITALS: BP 125/76
[2019-05-21] MEDS ORDERED: Atorvastatin* 40 MG TAB PO SCH (17:00)
[2019-05-21] MEDS ORDERED: Atorvastatin* 80 MG TAB PO SCH (17:00)
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
== END 2019-05-21 16:37 | disposition home or self-care (01) ==
LOC: ED 17:39 → MEDTELE 20:49
PROVIDERS: ADMIT Student in an Organized Health Care Education/Training Program; ATTEND Internal Medicine
DX: R07.9 Chest pain, unspecified (principal); I25.10 Atherosclerotic heart disease of native coronary artery without angina pectoris; I10 Essential (primary) hypertension; E78.5 Hyperlipidemia, unspecified; K21.9 Gastro-esophageal reflux disease without esophagitis; D50.9 Iron deficiency anemia, unspecified; G47.33 Obstructive sleep apnea (adult) (pediatric); K64.9 Unspecified hemorrhoids; Z79.82 Long term (current) use of aspirin; Z79.899 Other long term (current) drug therapy; K92.2 Gastrointestinal hemorrhage, unspecified; R94.31 Abnormal electrocardiogram [ECG] [EKG]
CPT/HCPCS: 36415; 71046; 78452; 80048; 80053; 84484; 85025; 85027; 85610; 93005; 93017; 99284; A9270-GY; A9502; G0378

== ENCOUNTER 2020-09-02 22:11 | Observation (INO) ==
[2020-09-03 00:19] LABS: ABS Eosinophils 0.1 10^3/ul (0-0.6); ABS Monocytes 0.5 10^3/ul (0-0.8); ABS Neutrophils 3.8 10^3/ul (1.5-7.7); Eosinophil % 2.2 %; Hematocrit 47 % (42-52); Hemoglobin 15.9 g/dL (14.0-18.0); Mean Corpuscular HGB Conc 34 g/dL (31-36); Mean Corpuscular Hemoglobin 33 pg (27-31); Mean Corpuscular Volume 95 fL (80-94); Mean Platelet Volume 9.3 fL (7.4-10.4); Nucleated Red Blood Cells % 0.1; Platelet Count 191 10^3/uL (150-450); Red Blood Count 4.87 10^6 /uL (4.18-5.48); Red Cell Distribution Width 13 % (10-15); White Blood Count 5.4 10^3/uL (3.5-10.8)
[2020-09-03 00:36] LABS: Albumin/Globulin Ratio 1.4 (1-3); BUN/Creatinine Ratio 14.2 (8-20); Calcium 9.8 mg/dL (8.6-10.3); EGFR African American 88.4 (>60); EGFR Non-African American 73.1 (>60); Globulin 3.5 g/dL (2-4); Potassium 3.9 mmol/L (3.5-5.0); Total Bilirubin 0.9 mg/dL (0.2-1.0); Total Protein 8.5 g/dL (6.4-8.9)
[2020-09-03 00:40] LABS: Troponin I 0.01 ng/mL (<0.03)
[2020-09-03] MEDS ORDERED: Potassium Chlor 20 meq TAB.ER PO SCH (09:00)
[2020-09-03 12:23] VITALS: BP 121/78
== END 2020-09-03 13:55 | disposition home or self-care (01) ==
LOC: MEDTELE 22:11 → ED 22:11 → MEDTELE 09-03 03:29
PROVIDERS: ADMIT Internal Medicine; ATTEND Internal Medicine

== ENCOUNTER 2023-02-21 06:06 | Inpatient (IN) ==
[~2023-02-21 06:06] MED LIST changes: -Adenosine* 3 MG/ML VIAL ONE; +Buffered Lidocaine 1% SYRIN 1 ml INTRADERM ONE; -Heparin 2 UNITS/ML IVPREMIX* 3,000 UNIT/1,500 ML BAG IV ONE; -Heparin(*) 1000 UNIT/ML 10 ML VIAL CATH LAB IV ONE; -Iodixanol 320 (CONTRAST) 100 ML SDV ONE; -Iohexol 350 (CONTRAST) 200 ML MDV IV ONE; +Lactated Ringers 1000 ml BAG 1,000 ML IV SCH; -Lidocaine 1% INJ* 10 MG/ML 30 ML SDV ONE; -Midazolam* 1 MG/ML 5 ML VIAL (5 MG) ONE; -NS 0.9% 1000 ML** 1,000 ML IV SCH; -VERAPAMIL 2.5 MG/ML 2 ML VIAL ** 5 mg/2 ml ONE; -fentaNYL* 50 MCG/ML 2 ML VIAL (100 MCG VIAL) ONE; -nitroGLYCERIN DRIP* 25,000 MCG/250 ML BTL ONE
[2023-02-21] MEDS ORDERED: Heparin 5000 UNITS/ML 1 mL VIAL ONE (06:34)
[2023-02-21] MEDS ORDERED: Scopolamine 1 mg/72hr PATCH ONE (06:34)
[2023-02-21] MEDS ORDERED: ceFAZolin *3* GM in NS PREMIX 3 GM/100 ML BAG IV ONE (06:34)
[2023-02-21] MEDS ORDERED: Lidocaine 1% w EPI 1:100,000 MDV 20 ML VIAL ONE (06:49)
[2023-02-21] MEDS ORDERED: Bupivacaine 0.5% 50 ML MDV VIAL ONE (06:49)
[2023-02-21 06:59] LABS: Rapid COVID-19 Molecular Undetected (Undetected)
[2023-02-21] MEDS ORDERED: Methylene Blue 0.5 % 50 MG/10 ML AMP IV ONE (07:02)
[2023-02-21] MEDS ORDERED: Rocuronium 50 mg VIAL 10 mg/ml 5 ml VIAL (50 mg) ONE ×2 (07:07→09:51)
[2023-02-21] MEDS ORDERED: Propofol 10 MG/ML 20 ML BTL ONE (07:07)
[2023-02-21] MEDS ORDERED: fentaNYL 250 mcg/5 ml 50 MCG/ML 5 ml VIAL (250 MCG) ONE (07:07)
[2023-02-21] MEDS ORDERED: Midazolam 2 mg/2 ml VIAL 1 mg/ml 2 ml VIAL (2 mg) ONE (07:07)
[2023-02-21] MEDS ORDERED: Lidocaine 2% PF 5 ML VIAL ONE (07:07)
[2023-02-21] MEDS ORDERED: Ondansetron 4 mg VIAL 2 MG/ML 2 ml VIAL ONE (08:01)
[2023-02-21] MEDS ORDERED: Dexamethasone IV 4 MG/ML VIAL 1 ml VIAL ONE (08:01)
[2023-02-21] MEDS ORDERED: Acetaminophen IV 1 GM/100ML 1,000 MG/100 ML BAG IV ONE (08:01)
[2023-02-21] MEDS ORDERED: Prochlorperazine 5 mg/ml 2 ml VIAL (10 mg) IV PRN (08:10)
[2023-02-21] MEDS ORDERED: fentaNYL 100 mcg/2 ml 50 MCG/ML VIAL IV PRN (08:10)
[2023-02-21] MEDS ORDERED: Naloxone 0.4 mg VIAL 0.4 mg/ml 1 ml VIAL IV PRN (08:10)
[2023-02-21] MEDS ORDERED: HYDROmorphone 1 MG/1 ML SYRINGE IV PRN (08:10)
[2023-02-21] MEDS ORDERED: Phenylephrine 40 mcg/mL 10mL (400mcg) SYRINGE ONE (08:20)
[2023-02-21] MEDS ORDERED: Phenylephrine IV 10 MG/ML 1 ml VIAL ONE (08:24)
[2023-02-21] MEDS ORDERED: Iohexol 180 (CONTRAST) 10 ML SDV IV ONE (10:28)
[2023-02-21] MEDS ORDERED: HYDROcodone/ACET. 7.5/325 LIQ 15 ML UDC PO PRN (11:04)
[2023-02-21] MEDS ORDERED: HYDROmorphone 1 MG/1 ML SYRINGE ONE (11:04)
[2023-02-21] MEDS ORDERED: HYDROmorphone 0.5 MG/0.5 ML SYRINGE IV SLOW PU PRN (11:04)
[2023-02-21] MEDS ORDERED: Ondansetron 4 mg VIAL 2 MG/ML 2 ml VIAL IV PRN (11:04)
[2023-02-21] MEDS ORDERED: Acetaminophen IV 1 GM/100ML 1,000 MG/100 ML BAG IV PRN (11:04)
[2023-02-21] MEDS ORDERED: HYDROmorphone 1 MG/1 ML SYRINGE IV SLOW PU PRN (11:04)
[2023-02-21] MEDS ORDERED: Fluticasone NASAL SPRAY 50MCG 16 gm SPRAY BTL INTRANASAL PRN (11:17)
[2023-02-21] MEDS: Lactated Ringers 1000 ml BAG 1,000 ML IV SCH ×2 (12:21→18:57)
[2023-02-21] MEDS: Heparin 5000 UNITS/ML 1 mL VIAL SUBCUT SCH ×2 (14:44→20:59)
[2023-02-21] MEDS: Famotidine IV 10 MG/ML 2 ml VIAL (20 mg) IV SLOW PU SCH (20:59)
[2023-02-22] MEDS: Lactated Ringers 1000 ml BAG 1,000 ML IV SCH ×2 (01:25→08:11)
[2023-02-22] MEDS: Heparin 5000 UNITS/ML 1 mL VIAL SUBCUT SCH ×2 (06:03→14:54)
[2023-02-22] MEDS: Famotidine IV 10 MG/ML 2 ml VIAL (20 mg) IV SLOW PU SCH (09:34)
[2023-02-22] MEDS ORDERED: D5W 1/2 NS KCl 20 meq 1000 ml 1,000 ML IV SCH (12:00)
[2023-02-22 14:14] VITALS: BP 128/81
== END 2023-02-22 16:45 | disposition home or self-care (01) | DRG 403 ==
LOC: OR 06:06 → SSU 12:06 → MERGE 12:06
PROVIDERS: ADMIT Surgery; ATTEND Surgery

== ENCOUNTER 2023-05-01 14:13 | Inpatient (IN) ==
[2023-05-01 14:42] LABS: ABS Lymphocytes 1.1 10^3/uL (1.0-4.8); ABS Monocytes 0.3 10^3/uL (0.0-1.1); ABS Neutrophils 3.6 10^3/uL (1.5-7.6); Eosinophil % 0.4 %; Hematocrit 31.8 % (38-53); Hemoglobin 10.5 g/dL (13.2-16.3); Mean Corpuscular Hemoglobin 31.9 pg (27-33); Mean Corpuscular Volume 96.6 fL (80-97); Mean Platelet Volume 9.2 fL (7.5-11.2); Platelet Count 204 10^3/uL (150-450); Red Blood Count 3.29 10^6/uL (4.06-5.63); Red Cell Distribution Width 13.7 % (12-17); White Blood Count 5.1 10^3/uL (3.6-10.2)
[2023-05-01 14:56] LABS: Activated Partial Thrombo Time 27.2 seconds (26.0-38.0); INR 1.12 (0.83-1.13)
[2023-05-01 15:16] LABS: Albumin/Globulin Ratio 1.7 (1-3); Calcium 8.9 mg/dL (8.6-10.3); Creatinine, Serum 0.96 mg/dL (0.67-1.17); Globulin 2.4 g/dL (2-4); Potassium 4.1 mmol/L (3.5-5.0); Total Bilirubin 0.5 mg/dL (0.2-1.0); Total Protein 6.4 g/dL (6.4-8.9); eGFR CKD-EPI 93.3 (>60)
[2023-05-01] MEDS ORDERED: Iohexol 350 (CONTRAST) 500 ML MDV IV ONE (16:01)
[2023-05-01 16:17] LABS: High Sensitivity Troponin 1 Hr 6 pg/mL (<20)
[2023-05-01] MEDS ORDERED: Famotidine IV 10 MG/ML 2 ml VIAL (20 mg) IV SLOW PU ONE (18:57)
[2023-05-01 19:25] LABS: Hematocrit 25.4 % (38-53); Hemoglobin 8.5 g/dL (13.2-16.3)
[2023-05-01] MEDS ORDERED: Ondansetron 4 mg VIAL 2 MG/ML 2 ml VIAL IV PRN (19:34)
[2023-05-01] MEDS ORDERED: NS 0.9% 500 ml BAG 500 ML IV ONE (19:39)
[2023-05-01] MEDS: Pantoprazole VIAL 40 MG VIAL IV SCH (20:48)
[2023-05-01 21:30] LABS: Hematocrit 23.2 % (38-53); Hemoglobin 7.7 g/dL (13.2-16.3); Mean Corpuscular Hgb Conc 33.3 g/dL (31-36); Mean Corpuscular Volume 96.1 fL (80-97); Mean Platelet Volume 9.3 fL (7.5-11.2); Platelet Count 176 10^3/uL (150-450); Red Blood Count 2.41 10^6/uL (4.06-5.63); Red Cell Distribution Width 13.2 % (12-17); White Blood Count 4.7 10^3/uL (3.6-10.2)
[2023-05-01] MEDS ORDERED: Lactated Ringers 1000 ml BAG 1,000 ML IV ONE (21:47)
[2023-05-02] MEDS ORDERED: Lactated Ringers 1000 ml BAG 1,000 ML IV ONE (00:03)
[2023-05-02] MEDS ORDERED: Octreotide Acetate 50 MCG in NS 0.9% 50 ML 50 ML IV ONE (00:08)
[2023-05-02] MEDS ORDERED: Iohexol 350 (CONTRAST) 500 ML MDV IV ONE (01:02)
[2023-05-02] MEDS: Octreotide Acetate 500 MCG in NS 0.9% 100 ml BAG 100 ML IV SCH ×3 (01:51→13:16)
[2023-05-02 04:53] LABS: Hematocrit 28.2 % (38-53); Hemoglobin 9.6 g/dL (13.2-16.3); Mean Corpuscular Hemoglobin 31.4 pg (27-33); Mean Corpuscular Hgb Conc 34.2 g/dL (31-36); Mean Corpuscular Volume 91.7 fL (80-97); Mean Platelet Volume 9.4 fL (7.5-11.2); Platelet Count 141 10^3/uL (150-450); Red Blood Count 3.08 10^6/uL (4.06-5.63); Red Cell Distribution Width 15.3 % (12-17); White Blood Count 4.3 10^3/uL (3.6-10.2)
[2023-05-02 05:51] LABS: Anion Gap 10 mmol/L (2-16); Blood Urea Nitrogen 35 mg/dL (6-24); CO2 Carbon Dioxide 21 mmol/L (22-32); Chloride 110 mmol/L (101-111); Creatinine, Serum 0.94 mg/dL (0.67-1.17); Glucose 146 mg/dL (70-100); Phosphorus 3.6 mg/dL (2.5-5.0); Potassium 4.3 mmol/L (3.5-5.0); Sodium 141 mmol/L (135-145); eGFR CKD-EPI 95.7 (>60)
[2023-05-02] MEDS: Pantoprazole VIAL 40 MG VIAL IV SCH (08:50)
[2023-05-02] MEDS ORDERED: fentaNYL 100 mcg/2 ml 50 MCG/ML VIAL ONE (10:20)
[2023-05-02] MEDS ORDERED: Midazolam 10 mg/10 ml VIAL 1 mg/ml 10 ml VIAL (10 mg) ONE (10:20)
[2023-05-02] MEDS ORDERED: fentaNYL 100 mcg/2 ml 50 MCG/ML VIAL IV SLOW PU ONE (13:55)
[2023-05-02] MEDS ORDERED: Midazolam 10 mg/10 ml VIAL 1 mg/ml 10 ml VIAL (10 mg) IV SLOW PU ONE (13:55)
[2023-05-02] MEDS: Pantoprazole 80 mg in NS BAG 80 MG/250 ML BAG IV SCH (14:09)
[2023-05-02] MEDS ORDERED: Senna TAB 8.6 mg TAB PO ONE (20:34)
[2023-05-03] MEDS: Pantoprazole 80 mg in NS BAG 80 MG/250 ML BAG IV SCH ×2 (00:33→11:30)
[2023-05-03 05:17] LABS: Hematocrit 25.1 % (38-53); Hemoglobin 8.5 g/dL (13.2-16.3); Mean Corpuscular Hemoglobin 31.5 pg (27-33); Mean Corpuscular Volume 92.8 fL (80-97); Platelet Count 144 10^3/uL (150-450); Red Cell Distribution Width 14.9 % (12-17); White Blood Count 3.9 10^3/uL (3.6-10.2)
[2023-05-03 05:38] LABS: Calcium 8.4 mg/dL (8.6-10.3); Magnesium 1.8 mg/dL (1.9-2.7); eGFR CKD-EPI 88.9 (>60)
[2023-05-03] MEDS ORDERED: Magnesium Sulfate 2 gm BAG 2 GM/50 ML BAG IVPB ONE (09:04)
[2023-05-03] MEDS ORDERED: Lactated Ringers 1000 ml BAG 500 ML IV ONE (09:43)
[2023-05-03] MEDS ORDERED: Pantoprazole 80 mg in NS BAG 80 MG/250 ML BAG IV SCH (12:00)
[2023-05-03 15:05] LABS: Hematocrit 25.5 % (38-53); Hemoglobin 8.8 g/dL (13.2-16.3)
[2023-05-03] MEDS: Pantoprazole VIAL 40 MG VIAL IV SCH (21:10)
[2023-05-04 08:54] LABS: Hematocrit 28.3 % (38-53); Hemoglobin 9.7 g/dL (13.2-16.3); Mean Corpuscular Hgb Conc 34.3 g/dL (31-36); Mean Corpuscular Volume 93.2 fL (80-97); Mean Platelet Volume 9.2 fL (7.5-11.2); Platelet Count 178 10^3/uL (150-450); Red Blood Count 3.03 10^6/uL (4.06-5.63); Red Cell Distribution Width 14.9 % (12-17); White Blood Count 4.1 10^3/uL (3.6-10.2)
[2023-05-04 10:23] VITALS: BP 112/74
[2023-05-04] MEDS: Pantoprazole VIAL 40 MG VIAL IV SCH (10:49)
== END 2023-05-04 12:37 | disposition home or self-care (01) | DRG 241 ==
LOC: EDHOLD 14:13 → ED 14:13 → SUATTDRO 19:34 → ICU 05-02 00:12 → SUATTDRO 05-03 13:24 → MED 05-03 17:18
PROVIDERS: ADMIT Hospitalist; ATTEND Hospitalist